=== PATIENT | male | born 1965 | race Caucasian/White ===

== ENCOUNTER 2017-12-28 14:39 | Inpatient (IN) | payer MEDICARE ==
[~2017-12-28] VITALS: Ht 162.6 cm; Wt 121.1 kg
[~2017-12-28 14:39] MED LIST: K DUR10 MEQ PO; KLOR-CON 1010 MEQ PO; LASIX40 MG PO; LEVOTHYROXINE75 MCG PO; METFORMIN HCL500 MG PO; SIMVASTATIN40 MG PO; WARFARIN SODIUM6 MG PO; [UNRECOGNIZED DRUG - CODE] PO
[2017-12-28] MEDS ORDERED: IPRATROPIUM BROMIDE 0.02% 2.5 ML NEB NEB STA (15:16)
[2017-12-28] MEDS ORDERED: ALBUTEROL SULF 0.083% NEB SOLN 3 ML NEB NEB STA (15:16)
[2017-12-28 15:53] LABS: BASOPHILS # (AUTO) 0.1 (0.0-0.1); BASOPHILS % 1.3 % (0.0-1.0); EOSINOPHILS # (AUTO) 0.1 (0.0-0.4); EOSINOPHILS % 1.1 % (0.0-6.0); HEMATOCRIT 46.2 % (38.2-49.6); HEMOGLOBIN 14.7 g/dL (14.0-18.0); LYMPHOCYTES # (AUTO) 0.8 (1.0-3.2); MEAN CORPUSCULAR HEMOGLOBIN 30.4 pg (28-32); MEAN CORPUSCULAR HGB CONC 31.8 g/dL (31-35); MEAN CORPUSCULAR VOLUME 95.7 fL (81-99); MONOCYTES # (AUTO) 0.7 (0.2-0.8); MONOCYTES % 9.3 % (4.4-11.3); NEUTROPHILS # (AUTO) 5.5 (2.1-6.9); NEUTROPHILS % 76.9 % (38.7-80.0); PLATELET COUNT 225 x10e3/uL (140-360); RED BLOOD COUNT 4.83 x10e6/uL (4.3-5.7)
[2017-12-28 16:02] LABS: INR 3.16; PROTHROMBIN TIME 30.5 seconds (11.9-14.5)
[2017-12-28 16:03] LABS: PARTIAL THROMBOPLASTIN TIME 55.8 seconds (23.8-35.5)
[2017-12-28 16:12] LABS: ALANINE AMINOTRANSFERASE 15 IU/L (0-55); ALBUMIN 3.1 g/dL (3.5-5.0); ALBUMIN/GLOBULIN RATIO 0.8 (0.8-2.0); ALKALINE PHOSPHATASE 110 IU/L (40-150); BLOOD UREA NITROGEN 20 mg/dL (7-26); BUN/CREATININE RATIO 22 (6-25); CALCIUM 9.3 mg/dL (8.4-10.2); CARBON DIOXIDE 28 mmol/L (22-29); CHLORIDE 102 mmol/L (98-107); CREATINE KINASE 22 IU/L (30-200); CREATININE, SERUM 0.91 mg/dL (0.72-1.25); EST GLOMERULAR FILTRATION RATE > 60 ML/MIN (60-); GLUCOSE 114 mg/dL (74-118); SODIUM 140 mmol/L (136-145)
--- NOTE | 2017-12-28 16:34 | Diagnostic Imaging Report ---
PROCEDURE: Frontal and lateral views of the chest. COMPARISON: Patients [facility], , CHEST 2 VIEWS, 12/26/2014, 14:02. INDICATIONS: short of breath FINDINGS: Lines/tubes: Unchanged left upper chest multilead cardiac device. Lungs: Lungs are well-inflated. Bilateral interstitial opacities extending from the manda consistent with interstitial pulmonary edema. Patchy opacities in the left lower lung may reflect alveolar edema or atelectasis. Pleura: There is no pleural effusion or pneumothorax. Heart and mediastinum: Marked enlargement of the cardiac silhouette. Central pulmonary venous congestion. Bones: No acute bony abnormality. IMPRESSION: 1. marked enlargement of the cardiac silhouette with central pulmonary venous congestion and bilateral interstitial edema. Patchy opacities in the left lower lung may reflect alveolar edema or atelectasis. Findings likely represent decompensated CHF. Keith Carranza M.D. Dictated by: Keith Carranza M.D. on 12/28/2017 at 16:39 Electronically approved by: Keith Carranza M.D. on 12/28/2017 at 16:39
[2017-12-28] MEDS ORDERED: FUROSEMIDE INJ 10 MG/ML 4 ML VIAL IV ONE (18:00)
[2017-12-28] MEDS ORDERED: ASPIRIN 81 MG CHEW TAB PO ONE (18:30)
[2017-12-28] MEDS ORDERED: SODIUM CHLORIDE FLUSH 10 ML SYR INJ PRN (18:30)
[2017-12-28] MEDS ORDERED: GLIMEPIRIDE2 MG PO (18:34)
[2017-12-28] MEDS ORDERED: ALLOPURINOL100 MG PO (18:34)
[2017-12-28] MEDS ORDERED: WARFARIN SODIUM1 MG PO (18:34)
[2017-12-28] MEDS ORDERED: ERGOCALCIF8000 UNIT/ PO (18:34)
[2017-12-28] MEDS ORDERED: METOPROLOL SUCC25 MG PO (18:34)
[2017-12-28] MEDS ORDERED: LEVOTHYROXINE75 MCG PO (18:34)
[2017-12-28 18:43] LABS: MAGNESIUM 1.8 MG/DL (1.3-2.1); PHOSPHORUS 3.2 MG/DL (2.3-4.7)
[2017-12-28] MEDS: BUMETANIDE INJ 0.25MG/ML 4ML VIAL IV SCH (19:10)
[2017-12-28 20:16] VITALS: BP 116/65
[2017-12-28] MEDS: ALBUTEROL SULF 0.083% NEB SOLN 3 ML NEB NEB SCH ×2 (20:30→23:15)
[2017-12-28 21:07] VITALS: BP 112/53
[2017-12-28 21:23] VITALS: BP 112/53
[2017-12-28 22:20] VITALS: BP 118/77
[2017-12-28 23:57] VITALS: BP 113/64
[2017-12-29] VITALS (10 sets, daily range): BP systolic 98–135; BP diastolic 48–80
[2017-12-29 00:06] LABS: CREATINE KINASE MB 1.9 ng/mL (0-5.0)
[2017-12-29] MEDS: ALBUTEROL SULF 0.083% NEB SOLN 3 ML NEB NEB SCH ×6 (02:52→23:00)
[2017-12-29 05:29] LABS: BASOPHILS # (AUTO) 0.1 (0.0-0.1); BASOPHILS % 0.8 % (0.0-1.0); EOSINOPHILS # (AUTO) 0.1 (0.0-0.4); EOSINOPHILS % 1.1 % (0.0-6.0); HEMATOCRIT 46.2 % (38.2-49.6); HEMOGLOBIN 14.6 g/dL (14.0-18.0); LYMPHOCYTES # (AUTO) 0.7 (1.0-3.2); LYMPHOCYTES % 9.2 % (18.0-39.1); MEAN CORPUSCULAR HEMOGLOBIN 30.5 pg (28-32); MEAN CORPUSCULAR HGB CONC 31.6 g/dL (31-35); MEAN CORPUSCULAR VOLUME 96.5 fL (81-99); MONOCYTES # (AUTO) 0.7 (0.2-0.8); MONOCYTES % 9.9 % (4.4-11.3); NEUTROPHILS # (AUTO) 5.6 (2.1-6.9); NEUTROPHILS % 78.7 % (38.7-80.0); PLATELET COUNT 222 x10e3/uL (140-360); RED BLOOD COUNT 4.79 x10e6/uL (4.3-5.7); RED CELL DISTRIBUTION WIDTH 18.8 % (11.7-14.4)
[2017-12-29 06:00] LABS: ALANINE AMINOTRANSFERASE 16 IU/L (0-55); ALBUMIN/GLOBULIN RATIO 0.8 (0.8-2.0); ALKALINE PHOSPHATASE 106 IU/L (40-150); ANION GAP 13.6 mmol/L (8-16); BLOOD UREA NITROGEN 17 mg/dL (7-26); BUN/CREATININE RATIO 19 (6-25); CALCIUM 9.3 mg/dL (8.4-10.2); CARBON DIOXIDE 34 mmol/L (22-29); CHLORIDE 99 mmol/L (98-107); CREATININE, SERUM 0.89 mg/dL (0.72-1.25); EST GLOMERULAR FILTRATION RATE > 60 ML/MIN (60-); GLUCOSE 114 mg/dL (74-118); POTASSIUM 3.6 mmol/L (3.5-5.1); SODIUM 143 mmol/L (136-145)
[2017-12-29] MEDS: BUMETANIDE INJ 0.25MG/ML 4ML VIAL IV SCH (06:29)
[2017-12-29 06:50] LABS: CREATINE KINASE MB 1.6 ng/mL (0-5.0)
[2017-12-29] MEDS: SPIRONOLACTONE 25 MG TAB PO SCH (08:27)
[2017-12-29] MEDS: POTASSIUM CHLORIDE 20 MEQ TAB CR PO SCH (08:28)
[2017-12-29] MEDS: LISINOPRIL 10 MG TAB PO SCH (09:00)
[2017-12-29 09:43] LABS: INR 2.8; PROTHROMBIN TIME 27.7 seconds (11.9-14.5)
[2017-12-29] MEDS ORDERED: FUROSEMIDE INJ 10 MG/ML 4 ML VIAL IV NR (09:45)
[2017-12-29] MEDS ORDERED: LEVOTHYROXINE SODIUM 75 MCG TAB PO SCH (10:00)
[2017-12-29] MEDS: METOPROLOL SUCCINATE 25 MG TAB XL PO SCH (10:00)
[2017-12-29] MEDS: LEVOTHYROXINE SODIUM 75 MCG TAB PO SCH (10:10)
[2017-12-29] MEDS: GLIMEPIRIDE 2 MG TAB PO SCH (10:10)
--- NOTE | 2017-12-29 10:39 | History and Physical ---
CHIEF COMPLAINT: Shortness of breath. HISTORY OF PRESENT ILLNESS: This is a 52-year-old white man who presents to [facility] emergency room with sudden onset of shortness of breath. This man has a history of Down syndrome, as well as congestive heart failure. In the emergency room, chest x-ray performed and revealed cardiomegaly with central pulmonary venous congestion, as well as bilateral interstitial edema. However, the patient's B-type natriuretic peptide level was normal at a value of 75. The patient's BUN and creatinine was 17 and 0.9 respectively. The patient's potassium was 3.6. The patient's serial cardiac enzymes, however, were negative for cardiac ischemia. In the emergency room, the patient's oxygen saturation was 92% on 2 L of oxygen. Apparently, his oxygen saturation was 78% on room air. REVIEW OF SYSTEMS GENERAL: Weight is increased slightly, but cannot quantity. No fever or chills. HEENT: No headaches. No vision changes. CARDIOVASCULAR: No chest pain, but he has had shortness of breath the past few days. GI: Denies diarrhea or constipation. : No UTI symptoms. NEUROMUSCULAR: No weakness. PAST MEDICAL HISTORY 1. Down syndrome. 2. Chronic systolic/diastolic congestive heart failure. 3. Extreme obesity. 4. Hyperlipidemia. 5. Type 2 diabetes mellitus. 6. Hypertensive heart disease. 7. History of recurrent deep venous thrombosis. 8. History of pulmonary embolism. 9. Hypothyroidism. ALLERGIES 1. CEFDINIR. 2. VANCOMYCIN. FAMILY HISTORY: Noncontributory. SOCIAL HISTORY: The man is single. He lives at home, and he has multiple adult sisters who care for him. SURGICAL HISTORY: Unknown. PHYSICAL EXAMINATION GENERAL: He is awake and alert. Does not appear to be in any respiratory distress. He has obvious Down syndrome with cognitive deficits. He is very pleasant and cooperative with exam. He communicates with the nursing staff adequately. VITALS: Blood pressure is 109/48, pulse 72, respiratory rate 22, oxygen saturation 94% on 4 L oxygen, temperature 97.7. Height is 5 feet 4 inches and weighs 275 pounds. BMI 47. SKIN: Warm and dry. No pallor or diaphoresis appreciated. HEENT: Anicteric sclerae. Moist mucous membranes. NECK: Supple. Difficult to assess for jugular venous distention because of the patient's body habitus. CARDIOVASCULAR: Regular rate and rhythm. LUNGS: Crackles bilaterally. ABDOMEN: Obese and benign. EXTREMITIES: Trace edema in the bilateral lower legs. NEUROLOGIC: Intact. DIAGNOSES 1. Xojsw-ch-nrcwmlh systolic/diastolic congestive heart failure. 2. Down syndrome. 3. Extreme obesity: Body mass index 47. 4. History of lower extremity deep venous thrombosis. 5. History of pulmonary embolism. PLAN 1. Continue warfarin therapy. 2. Follow up prothrombin time and INR level. 3. Order a CT angiogram of the chest to rule out pulmonary thromboembolism. 4. Continue intravenous furosemide. 5. Order 2-D echocardiogram. 6. Consult cardiology. I spent 45 minutes in the care of this intensive care unit patient. Job#: [id number] OMAR
[2017-12-29] MEDS ORDERED: NYSTATIN 15 GM POWDER UD BTL TOP PRN (11:00)
[2017-12-29] MEDS ORDERED: FUROSEMIDE INJ 10 MG/ML 4 ML VIAL IV SCH (14:00)
--- NOTE | 2017-12-29 14:05 | Diagnostic Imaging Report ---
PROCEDURE: CT scan of the chest WITH intravenous contrast, using standard protocol. TECHNIQUE: The chest was scanned utilizing a multidetector helical scanner from the lung apex through the level of the adrenal glands after the IV administration of 100 cc of Isovue 370. Coronal and sagittal multiplanar reformations were obtained. COMPARISON: 02/12/2015 INDICATIONS: DYSPNEA, BLOOD CLOTS FINDINGS: Lines/tubes: There are 2 pacemaker devices, one in the left chest wall, and one in the subcutaneous tissues of the upper abdomen. Multiple leads have their tips in the right atrium, right ventricle, and abutting the left ventricular wall. Pulmonary Arteries: Technically adequate examination with no evidence of pulmonary embolus. The main pulmonary artery is normal in caliber, measuring 2.3 cm Lungs and Airways: Patchy groundglass opacities are seen throughout both lungs with a basilar predominance. There are is interlobular septal thickening in the lung bases. Mild right basilar subsegmental atelectasis. Pleura: Small right pleural effusion. No pneumothorax. Heart and mediastinum: The thyroid gland is normal. There are mildly enlarged mediastinal nodes. For example a subcarinal lymph node (series 2, image 59) measures 1.3 cm. A right paratracheal lymph node (image 38) measures 1.3 cm. The heart is mildly enlarged. There is biventricular enlargement with thickening and trabeculation of the right ventricular wall . Soft tissues: Normal. Abdomen: Limited contrast-enhanced views of the upper abdomen. No specific abnormality is noted.. Bones: Median sternotomy wires. Multilevel degenerative changes of the thoracic spine. IMPRESSION: No evidence of pulmonary embolus. Cardiomegaly with pulmonary edema and small right pleural effusion. Mild mediastinal adenopathy is indeterminate. Dictated by: Bonilla William M.D. on 12/29/2017 at 14:10 Electronically approved by: Bonilla William M.D. on 12/29/2017 at 14:10
[2017-12-29] MEDS: WARFARIN SOD 5 MG TAB PO SCH (17:02)
[2017-12-29] MEDS: METOLAZONE 5 MG TAB PO SCH (17:06)
--- NOTE | 2017-12-29 17:48 | Consultation ---
DATE OF CONSULTATION: December 29, 2017 CARDIOLOGY CONSULTATION REASON FOR CONSULTATION: Hypoxia, acute on chronic CHF exacerbation. CHIEF COMPLAINT: I felt very short of breath and swollen. HISTORY OF PRESENT ILLNESS: Patient is a 52-year-old male with mental retardation, history of DVT on Coumadin, dual chamber pacemaker placed in 2006, history of cardiac surgery 30 years ago, bilateral venous insufficiency, pulmonary hypertension, obstructive sleep apnea on nighttime O2 and CPAP, and chronic diastolic heart failure, who was sent over from the office yesterday to the hospital because he appeared very short of breath, had gained a lot of weight, and he was saturating 75%. Since his admission, he has been diuresed and is net negative over three liters. He says his breathing is better but continues to feel somewhat short of breath. Denies any chest pain. Says that he has gained a lot of weight recently. Denies any palpitations or syncope. REVIEW OF SYSTEMS: Ten point review of systems is as above, otherwise negative. PAST MEDICAL HISTORY: 1. History of DVT on anticoagulation. 2. Down syndrome. 3. Corrective cardiac surgery 30 years ago. 4. Permanent pacemaker initially placed 20 years ago and has had several generator changes since then. 5. Bilateral venous insufficiency. 6. Pulmonary hypertension. 7. Severe AROLDO. 8. Chronic diastolic heart failure. 9. Morbid obesity. FAMILY HISTORY: No family history of early CAD or sudden cardiac . SOCIAL HISTORY: Patient denies smoking, drinking or using illicit drugs. PHYSICAL EXAMINATION: VITAL SIGNS: Temperature 97.5, heart rate 70, respiratory rate 18, blood pressure 102/60, satting 92% on two liters nasal cannula. GENERAL: A well-developed, morbidly obese white male. CARDIOVASCULAR: A very difficult and limited exam due to body habitus. PMI cannot be assessed. Regular S1/S2. No murmur, rubs or gallops. Palpable carotid pulses. Palpable radial pulses. Distal pulses in lower extremities could not be palpated due to 4+ edema and obesity. ABDOMEN: Very obese, soft, nontender. RESPIRATORY: No respiratory distress. Poor air movement, but lungs are clear to auscultation bilaterally. NEURO AND PSYCH: Patient is alert and oriented to place but not person or time. Cooperative affect. LABORATORY DATA: Reviewed. Significant for negative cardiac enzymes, normal renal function, carbon dioxide of 34. BNP was 75. IMAGING: All imaging reviewed. CT of the chest shows no evidence of pulmonary embolus, cardiomegaly or pulmonary edema and small right pleural effusion. Electrocardiogram shows AV paced rhythm. No arrhythmias on telemetry. ASSESSMENT 1. Acute on chronic diastolic heart failure. 2. Pulmonary hypertension. 3. Deep vein thrombosis on anticoagulation. 4. Bilateral venous insufficiency. 5. Dual chamber permanent pacemaker in place. 6. Congenital abnormality status post cardiac surgery 30 years ago. PLAN: Agree with continuing aggressive diuresis given pulmonary edema and CT scan as well as gross volume overload on exam. His BNP is normal. However, BNP can be falsely normal in morbidly obese patients such as this patient. Echocardiogram has been done but pending. In the past, his LV function has been preserved with elevated filling pressures and poor diastolic function. Continue his home anticoagulation for DVT. Thank you for this consult. Will continue to follow. Job#: [id number] MARCELLA
[2017-12-29] MEDS ORDERED: IOPAMIDOL 370 MG/ML 200 ML INFUS..BTL INJ ONE (19:33)
[2017-12-29] MEDS ORDERED: SODIUM CHLORIDE 0.9% 50ML 50 ML ONE (19:33)
[2017-12-29] MEDS: SIMVASTATIN 40 MG TAB PO SCH (21:55)
[2017-12-29] MEDS: METFORMIN HCL 500 MG TAB PO SCH (21:55)
[2017-12-29] MEDS: FUROSEMIDE INJ 10 MG/ML 4 ML VIAL IV SCH (21:55)
[2017-12-30] VITALS (42 sets, daily range): BP systolic 53–130; BP diastolic 22–91
[2017-12-30] MEDS: ALBUTEROL SULF 0.083% NEB SOLN 3 ML NEB NEB SCH ×6 (03:15→23:00)
[2017-12-30 04:43] LABS: BASOPHILS # (AUTO) 0.1 (0.0-0.1); BASOPHILS % 0.6 % (0.0-1.0); EOSINOPHILS # (AUTO) 0.1 (0.0-0.4); EOSINOPHILS % 0.9 % (0.0-6.0); HEMATOCRIT 48.9 % (38.2-49.6); HEMOGLOBIN 15.7 g/dL (14.0-18.0); LYMPHOCYTES # (AUTO) 0.6 (1.0-3.2); LYMPHOCYTES % 6.5 % (18.0-39.1); MEAN CORPUSCULAR HEMOGLOBIN 30.5 pg (28-32); MEAN CORPUSCULAR HGB CONC 32.1 g/dL (31-35); MONOCYTES # (AUTO) 0.7 (0.2-0.8); MONOCYTES % 7.8 % (4.4-11.3); NEUTROPHILS # (AUTO) 7.8 (2.1-6.9); NEUTROPHILS % 83.9 % (38.7-80.0); PLATELET COUNT 243 x10e3/uL (140-360); RED BLOOD COUNT 5.15 x10e6/uL (4.3-5.7); RED CELL DISTRIBUTION WIDTH 19.1 % (11.7-14.4)
[2017-12-30 04:54] LABS: INR 2.58
[2017-12-30 05:04] LABS: ALANINE AMINOTRANSFERASE 16 IU/L (0-55); ALBUMIN 3.3 g/dL (3.5-5.0); ALBUMIN/GLOBULIN RATIO 0.7 (0.8-2.0); ALKALINE PHOSPHATASE 118 IU/L (40-150); ANION GAP 17.4 mmol/L (8-16); BLOOD UREA NITROGEN 15 mg/dL (7-26); BUN/CREATININE RATIO 13 (6-25); CARBON DIOXIDE 36 mmol/L (22-29); CHLORIDE 93 mmol/L (98-107); CREATININE, SERUM 1.13 mg/dL (0.72-1.25); EST GLOMERULAR FILTRATION RATE > 60 ML/MIN (60-); GLUCOSE 161 mg/dL (74-118); POTASSIUM 3.4 mmol/L (3.5-5.1); SODIUM 143 mmol/L (136-145)
[2017-12-30] MEDS: FUROSEMIDE INJ 10 MG/ML 4 ML VIAL IV SCH ×4 (05:42→20:05)
[2017-12-30] MEDS: LEVOTHYROXINE SODIUM 75 MCG TAB PO SCH (05:43)
--- NOTE | 2017-12-30 06:39 | Diagnostic Imaging Report ---
EXAM: CHEST SINGLE (PORTABLE), AP 1 view INDICATION: CHF COMPARISON: AP view of the chest December 28, 2017 FINDINGS: LINES/TUBES: Left approach cardiac device with leads poorly visualized. LUNGS: Bilateral pulmonary edema PLEURA: Indeterminate for small bilateral pleural effusions. HEART AND MEDIASTINUM: Stable marked enlargement of the cardiomediastinal silhouette. Stable median sternotomy wires. BONES AND SOFT TISSUES: No acute findings. IMPRESSION: Findings of fluid overload with cardiomegaly and pulmonary edema. Signed by: Dr. Tamika Sigala M.D. on 12/30/2017 6:35 AM
[2017-12-30] MEDS ORDERED: LEVOTHYROXINE SODIUM 75 MCG TAB PO SCH (07:30)
[2017-12-30] MEDS: METFORMIN HCL 500 MG TAB PO SCH ×2 (08:21→20:12)
[2017-12-30] MEDS: GLIMEPIRIDE 2 MG TAB PO SCH (08:21)
[2017-12-30] MEDS: SPIRONOLACTONE 25 MG TAB PO SCH (08:21)
[2017-12-30] MEDS: LISINOPRIL 10 MG TAB PO SCH (08:22)
[2017-12-30] MEDS: POTASSIUM CHLORIDE 20 MEQ TAB CR PO SCH (08:22)
[2017-12-30] MEDS: METOPROLOL SUCCINATE 25 MG TAB XL PO SCH (08:23)
[2017-12-30] MEDS: ALLOPURINOL 100 MG TAB PO SCH (08:23)
[2017-12-30] MEDS: METOLAZONE 5 MG TAB PO SCH (08:23)
--- NOTE | 2017-12-30 13:07 | Progress Note ---
DATE: December 30, 2017 CARDIOLOGY PROGRESS NOTE SUBJECTIVE: The patient denies chest pain or shortness of breath. OBJECTIVE VITAL SIGNS: Temperature 98.5 degrees, pulse 88, respiratory rate 22, blood pressure 110/62, oxygen saturation 96% on 3 liters nasal cannula. GENERAL: An obese gentleman, awake and alert and in no acute distress. LUNGS: Clear to auscultation bilaterally. No wheezes or crackles. CARDIOVASCULAR: Normal rate, regular rhythm. No murmurs. Normal S1 and S2. ABDOMEN: Soft and nontender. EXTREMITIES: Trace edema with skin changes consistent with chronic venous stasis. CARDIAC MEDICATIONS: 1. Metolazone 5 mg p.o. daily. 2. Metoprolol succinate 25 mg p.o. daily. 3. Potassium 20 mEq p.o. daily. 4. Lisinopril 10 mg p.o. daily. 5. Spironolactone 25 mg p.o. daily. 6. Levothyroxine 75 mcg p.o. daily. 7. Furosemide 80 mg IV q.8 h. 8. Simvastatin 40 mg p.o. q. nightly. 9. Warfarin 7.5 mg p.o. daily. LABORATORY DATA: WBC 9.3, hemoglobin 15.7, hematocrit 48.9, platelets 243,000, sodium 143, potassium 3.4, chloride 93, CO2 of 36, BUN 15, creatinine 1.13. INR 2.58. IMAGING: CT chest with no evidence of pulmonary embolus, cardiomegaly with pulmonary edema and small right pleural effusion. Mild mediastinal adenopathy is indeterminate. Chest x-ray with findings of fluid overload with cardiomegaly and pulmonary edema. TELEMETRY: V-paced rhythm. IMPRESSION 1. Qehhc-gc-ksiopwz diastolic heart failure. 2. Pulmonary hypertension. 3. History of deep venous thrombosis on chronic anticoagulation. 4. Bilateral venous insufficiency, status post dual-chamber permanent pacemaker. 5. History of congenital heart disease, status post cardiac surgery 30 years ago. 6. Down's syndrome. 7. Obesity. 8. Diabetes mellitus. 9. Hypertension. 10. Hyperlipidemia. 11. Hypothyroidism. RECOMMENDATIONS: The patient continues to have volume overload on chest x-ray. Continue current diuretics. Monitor creatinine and replete electrolytes. Continue warfarin for anticoagulation. His physical exam is improving as are his symptoms. Will follow his chest x-ray findings as well as his oxygen saturation to determine when he may be changed to p.o. diuretics and ready for discharge. In the meantime, continue current cardiac medications. Thank you for this consult. We will continue to follow. Job#: [id number] GH
[2017-12-30] MEDS: TRAMADOL HCL 50 MG TAB PO PRN (13:30)
[2017-12-30] MEDS: WARFARIN SOD 5 MG TAB PO SCH (16:53)
[2017-12-30] MEDS ORDERED: SODIUM CHLORIDE 0.9% 250ML 250 ML ONE (19:45)
[2017-12-30] MEDS ORDERED: SODIUM CHLORIDE 0.9% 1000ML 1,000 ML IV PRN (20:00)
[2017-12-30] MEDS: SIMVASTATIN 40 MG TAB PO SCH (20:12)
[2017-12-30] MEDS ORDERED: ALBUMIN 25% 25GM 0.25 GM/ML BTL IV ONE ×2 (22:15→22:30)
[2017-12-30] MEDS ORDERED: ALBUMIN 25% 12.5GM 100 ML IV ONE (22:29)
[2017-12-30 23:26] LABS: CLARITY,URINE CLEAR (CLEAR); COLOR,URINE YELLOW (YELLOW); LEUKOCYTE ESTERASE ,URINE NEGATIVE (NEGATIVE); NITRITE,URINE NEGATIVE (NEGATIVE)
[2017-12-30 23:27] LABS: BILIRUBIN,URINE NEGATIVE (NEGATIVE); KETONES,URINE NEGATIVE (NEGATIVE); PROTEIN,URINE DIPSTICK NEGATIVE (NEGATIVE); URINE UROBILINOGEN 0.2 mg/dL (0.2 - 1)
[2017-12-30 23:29] LABS: EPITHELIAL CELLS,URINE FEW /LPF; WBC,URINE (MAN) 0-5 /HPF (0-5)
[2017-12-31] VITALS (77 sets, daily range): BP systolic 56–134; BP diastolic 35–98
[2017-12-31] MEDS: TRAMADOL HCL 50 MG TAB PO PRN (02:06)
[2017-12-31] MEDS: ALBUTEROL SULF 0.083% NEB SOLN 3 ML NEB NEB SCH ×6 (03:00→22:45)
[2017-12-31] MEDS: FUROSEMIDE INJ 10 MG/ML 4 ML VIAL IV SCH ×2 (04:22→14:00)
[2017-12-31] MEDS ORDERED: ALBUMIN 25% 12.5GM 100 ML IV ONE (04:24)
[2017-12-31] MEDS ORDERED: ALBUMIN 25% 25GM 0.25 GM/ML BTL IV ONE ×2 (04:30→04:45)
[2017-12-31] MEDS: LEVOTHYROXINE SODIUM 75 MCG TAB PO SCH ×2 (05:00→06:00)
[2017-12-31 05:15] LABS: BASOPHILS # (AUTO) 0.1 (0.0-0.1); BASOPHILS % 0.6 % (0.0-1.0); EOSINOPHILS # (AUTO) 0.1 (0.0-0.4); EOSINOPHILS % 1.1 % (0.0-6.0); HEMATOCRIT 49.1 % (38.2-49.6); HEMOGLOBIN 15.7 g/dL (14.0-18.0); LYMPHOCYTES # (AUTO) 0.8 (1.0-3.2); LYMPHOCYTES % 6.8 % (18.0-39.1); MEAN CORPUSCULAR HEMOGLOBIN 30.4 pg (28-32); MEAN CORPUSCULAR VOLUME 95.2 fL (81-99); MONOCYTES # (AUTO) 1.1 (0.2-0.8); MONOCYTES % 9.4 % (4.4-11.3); NEUTROPHILS # (AUTO) 9.1 (2.1-6.9); NEUTROPHILS % 81.6 % (38.7-80.0); PLATELET COUNT 260 x10e3/uL (140-360); RED BLOOD COUNT 5.16 x10e6/uL (4.3-5.7); RED CELL DISTRIBUTION WIDTH 19.4 % (11.7-14.4)
[2017-12-31 05:17] LABS: INR 2.71
[2017-12-31 05:24] LABS: ANION GAP 17.8 mmol/L (8-16); CALCIUM 9.9 mg/dL (8.4-10.2); CREATININE, SERUM 2.1 mg/dL (0.72-1.25); POTASSIUM 3.8 mmol/L (3.5-5.1)
--- NOTE | 2017-12-31 06:33 | Diagnostic Imaging Report ---
EXAM: CHEST SINGLE (PORTABLE), AP 1 view INDICATION: CHF COMPARISON: AP view of the chest December 30, 2017 FINDINGS: LINES/TUBES: Stable position of left approach cardiac device LUNGS: Bilateral pulmonary edema PLEURA: Possible small bilateral pleural effusions HEART AND MEDIASTINUM: Stable marked cardiomediastinal silhouette enlargement BONES AND SOFT TISSUES: No acute findings. IMPRESSION: Stable appearance of the chest Signed by: Dr. Tamika Sigala M.D. on 12/31/2017 6:30 AM
[2017-12-31] MEDS: METFORMIN HCL 500 MG TAB PO SCH (08:05)
[2017-12-31] MEDS: GLIMEPIRIDE 2 MG TAB PO SCH (08:05)
[2017-12-31] MEDS: LISINOPRIL 10 MG TAB PO SCH (08:07)
[2017-12-31] MEDS: SPIRONOLACTONE 25 MG TAB PO SCH (08:07)
[2017-12-31] MEDS: METOPROLOL SUCCINATE 25 MG TAB XL PO SCH (08:07)
[2017-12-31] MEDS: ALLOPURINOL 100 MG TAB PO SCH (08:07)
[2017-12-31] MEDS: METOLAZONE 5 MG TAB PO SCH (09:00)
[2017-12-31] MEDS: POTASSIUM CHLORIDE 20 MEQ TAB CR PO SCH (09:00)
[2017-12-31] MEDS ORDERED: SODIUM CHLORIDE 0.9% 250ML 250 ML IV ONE (15:45)
--- NOTE | 2017-12-31 16:28 | Progress Note ---
DATE: December 31, 2017 SUBJECTIVE: The patient denies chest pain or shortness of breath. He was hypotensive yesterday for which he was given 250 mL normal saline as well as 50 grams of albumin. OBJECTIVE VITAL SIGNS: Temperature 99.1 degrees, pulse 87, respiratory rate 16, blood pressure 96/74, oxygen saturation 94% on 3 liters nasal cannula. GENERAL: An obese gentleman, awake and alert and in no acute distress. LUNGS: Clear to auscultation bilaterally. No wheezes or crackles. CARDIOVASCULAR: Normal rate, regular rhythm. No murmurs. Normal S1 and S2. ABDOMEN: Soft and nontender. EXTREMITIES: Trace edema with skin changes consistent with chronic venous stasis. CARDIAC MEDICATIONS: 1. Metoprolol succinate 25 mg p.o. daily. 2. Levothyroxine 75 mcg p.o. daily. 3. Simvastatin 40 mg p.o. q. nightly. 4. Warfarin 7.5 mg p.o. daily. LABORATORY DATA: WBC 11.19, hemoglobin 15.7, hematocrit 49.1, platelets 260,000, sodium 137, potassium 3.8, chloride 86, CO2 of 35, BUN 23, creatinine 2.1, INR 2.71. IMAGING: Chest x-ray stable appearance of the chest. TELEMETRY: V-paced rhythm with PVCs. IMPRESSION 1. Bvrqd-lm-aqpojtk diastolic heart failure. 2. Pulmonary hypertension. 3. Acute kidney injury. 4. History of deep venous thrombosis on chronic anticoagulation. 5. Bilateral venous insufficiency, status post dual-chamber permanent pacemaker. 6. History of congenital heart disease, status post cardiac surgery 30 years ago. 7. Down's syndrome. 8. Diabetes mellitus. 9. Hypertension. 10. Hyperlipidemia. 11. Hypothyroidism. 12. Obesity. RECOMMENDATIONS: Stop diuretics given acute kidney injury. Monitor urine output and creatinine. If creatinine does not improve with cessation of diuretics, consider nephrology consultation. Continue warfarin for anticoagulation. Hold all antihypertensive therapies given hypotension. Continue current cardiac medications otherwise. Thank you for this consult. We will continue to follow. Job#: [id number] GH
[2017-12-31] MEDS: WARFARIN SOD 5 MG TAB PO SCH (16:55)
[2017-12-31] MEDS: SIMVASTATIN 40 MG TAB PO SCH (20:26)
[2018-01-01] VITALS (54 sets, daily range): BP systolic 72–148; BP diastolic 40–107
[2018-01-01] MEDS: ALBUTEROL SULF 0.083% NEB SOLN 3 ML NEB NEB SCH ×6 (02:15→23:01)
[2018-01-01 05:18] LABS: BASOPHILS # (AUTO) 0.1 (0.0-0.1); BASOPHILS % 0.5 % (0.0-1.0); EOSINOPHILS # (AUTO) 0.1 (0.0-0.4); EOSINOPHILS % 0.7 % (0.0-6.0); HEMATOCRIT 50.8 % (38.2-49.6); HEMOGLOBIN 16.3 g/dL (14.0-18.0); LYMPHOCYTES # (AUTO) 0.7 (1.0-3.2); LYMPHOCYTES % 5.5 % (18.0-39.1); MEAN CORPUSCULAR HGB CONC 32.1 g/dL (31-35); MEAN CORPUSCULAR VOLUME 93.6 fL (81-99); MONOCYTES # (AUTO) 1.1 (0.2-0.8); MONOCYTES % 8.4 % (4.4-11.3); NEUTROPHILS # (AUTO) 11.1 (2.1-6.9); NEUTROPHILS % 84.7 % (38.7-80.0); PLATELET COUNT 269 x10e3/uL (140-360); RED BLOOD COUNT 5.43 x10e6/uL (4.3-5.7); RED CELL DISTRIBUTION WIDTH 19.5 % (11.7-14.4)
[2018-01-01 05:37] LABS: INR 2.93; PROTHROMBIN TIME 28.7 seconds (11.9-14.5)
[2018-01-01 05:47] LABS: ANION GAP 17.9 mmol/L (8-16); CALCIUM 10.2 mg/dL (8.4-10.2); CREATININE, SERUM 1.41 mg/dL (0.72-1.25); POTASSIUM 3.9 mmol/L (3.5-5.1)
--- NOTE | 2018-01-01 06:40 | Diagnostic Imaging Report ---
EXAM: CHEST SINGLE (PORTABLE), AP 1 view INDICATION: Congestive heart failure COMPARISON: AP view of the chest December 31, 2017 FINDINGS: LINES/TUBES: Stable position of left approach cardiac device LUNGS: Pulmonary edema PLEURA: Indeterminate for small bilateral layering pleural effusions HEART AND MEDIASTINUM: Stable enlargement BONES AND SOFT TISSUES: No acute findings. IMPRESSION: No interval change Signed by: Dr. Tamika Sigala M.D. on 01/01/2018 6:37 AM
[2018-01-01] MEDS: METFORMIN HCL 500 MG TAB PO SCH (08:00)
[2018-01-01] MEDS: GLIMEPIRIDE 2 MG TAB PO SCH (08:00)
[2018-01-01] MEDS: METOPROLOL SUCCINATE 25 MG TAB XL PO SCH (09:00)
[2018-01-01] MEDS: ALLOPURINOL 100 MG TAB PO SCH (09:00)
[2018-01-01] MEDS: POTASSIUM CHLORIDE 20 MEQ TAB CR PO SCH (09:00)
[2018-01-01] MEDS: WARFARIN SOD 5 MG TAB PO SCH (17:19)
--- NOTE | 2018-01-01 17:38 | Progress Note ---
DATE: January 01, 2018 CARDIOLOGY PROGRESS NOTE SUBJECTIVE: No major events overnight. Patient subjectively feels a lot better and wants to go home. Denies any chest pain, shortness of breath, or palpitations. OBJECTIVE VITAL SIGNS: Temperature 98.0, heart rate 96, respiratory rate 18, blood pressure 99/67, satting 94% on 3 L nasal cannula. GENERAL: Obese white male, no acute distress. CARDIOVASCULAR: Very difficult exam due to body habitus, cannot palpate PMI. Normal S1 and S2. No murmur, rubs, or gallops. Palpable carotid pulses. Palpable radial pulses. ABDOMEN: Soft, nontender, and nondistended. RESPIRATORY: No respiratory distress. Lungs are clear to auscultation bilaterally. EXTREMITIES: Edema 3+ bilaterally. NEURO AND PSYCH: Alert and oriented to person, place, and time. Normal affect. MEDICATIONS: Reviewed. LABORATORY DATA: Reviewed, notable for increasing white count, now up to 13.1. IMAGING DATA: Reviewed. Chest x-ray shows bilateral opacities in the lung waters, suspected pulmonary edema. TELEMETRY DATA: Reviewed. ASSESSMENT 1. Yynej-bw-oswaujl diastolic heart failure. 2. Pulmonary hypertension. 3. Acute kidney injury. 4. History of deep vein thrombosis, on chronic anticoagulation. 5. Bilateral venous insufficiency. 6. Status post dual-chamber pacemaker placement. 7. History of congenital heart disease, status post cardiac surgery 30 years ago. 8. Down syndrome. 9. Diabetes. 10. Hypertension. 11. Hyperlipidemia. 12. Hypothyroidism. 13. Obesity. RECOMMENDATIONS: We will hold diuretics for now given JD and relative hypotension. It is very difficult to assess volume status in this patient; however, his LVEF is preserved and he has diuresed very well in the past few days. Given increasing white count, consider possible infectious etiology of his chest x-ray findings. Continue warfarin for anticoagulation. Antihypertensive being held given blood pressure being borderline. Thank you, we will continue to follow. Job#: [id number] MAYTE
[2018-01-01] MEDS: SIMVASTATIN 40 MG TAB PO SCH (21:01)
[2018-01-02] MEDS: ALBUTEROL SULF 0.083% NEB SOLN 3 ML NEB NEB SCH ×6 (02:50→23:15)
[2018-01-02 05:48] LABS: BASOPHILS # (AUTO) 0.1 (0.0-0.1); BASOPHILS % 0.7 % (0.0-1.0); EOSINOPHILS # (AUTO) 0.2 (0.0-0.4); EOSINOPHILS % 1.4 % (0.0-6.0); HEMATOCRIT 49.2 % (38.2-49.6); HEMOGLOBIN 16.2 g/dL (14.0-18.0); LYMPHOCYTES # (AUTO) 0.8 (1.0-3.2); LYMPHOCYTES % 7.4 % (18.0-39.1); MEAN CORPUSCULAR HEMOGLOBIN 30.7 pg (28-32); MEAN CORPUSCULAR HGB CONC 32.9 g/dL (31-35); MEAN CORPUSCULAR VOLUME 93.2 fL (81-99); MONOCYTES # (AUTO) 1.1 (0.2-0.8); MONOCYTES % 9.7 % (4.4-11.3); NEUTROPHILS # (AUTO) 8.9 (2.1-6.9); NEUTROPHILS % 80.3 % (38.7-80.0); PLATELET COUNT 237 x10e3/uL (140-360); RED BLOOD COUNT 5.28 x10e6/uL (4.3-5.7); RED CELL DISTRIBUTION WIDTH 18.7 % (11.7-14.4)
[2018-01-02 06:04] LABS: INR 3.14; PROTHROMBIN TIME 30.3 seconds (11.9-14.5)
[2018-01-02 06:14] LABS: ANION GAP 15.2 mmol/L (8-16); BLOOD UREA NITROGEN 25 mg/dL (7-26); BUN/CREATININE RATIO 23 (6-25); CARBON DIOXIDE 31 mmol/L (22-29); CHLORIDE 95 mmol/L (98-107); EST GLOMERULAR FILTRATION RATE > 60 ML/MIN (60-); GLUCOSE 141 mg/dL (74-118); POTASSIUM 4.2 mmol/L (3.5-5.1); SODIUM 137 mmol/L (136-145)
[2018-01-02] MEDS: LEVOTHYROXINE SODIUM 75 MCG TAB PO SCH (06:28)
[2018-01-02 07:45] VITALS: BP 107/67
[2018-01-02] MEDS: METOPROLOL SUCCINATE 25 MG TAB XL PO SCH (08:08)
[2018-01-02] MEDS: GLIMEPIRIDE 2 MG TAB PO SCH (08:08)
[2018-01-02] MEDS: POTASSIUM CHLORIDE 20 MEQ TAB CR PO SCH (08:08)
[2018-01-02] MEDS: ALLOPURINOL 100 MG TAB PO SCH (08:08)
[2018-01-02 08:09] VITALS: BP 107/67
--- NOTE | 2018-01-02 11:20 | Diagnostic Imaging Report ---
PROCEDURE: A single AP view of the chest. COMPARISON: 01/01/2018 and prior INDICATIONS: SHORTNESS OF BREATH FINDINGS: Lines/tubes: Left chest wall pacemaker with leads in unchanged positions. The cardiac device in the abdominal left upper quadrant has its leads in unchanged position. Lungs: Lung volumes are improved since the prior examination. Pulmonary edema has improved slightly. Pleura: There is no pleural effusion or pneumothorax. Heart and mediastinum: Cardiomegaly, unchanged Bones: No acute bony abnormality. Median sternotomy wires appear intact. IMPRESSION: Cardiomegaly is unchanged. Pulmonary edema has improved slightly since 01/01/2018 Dictated by: Bonilla William M.D. on 01/02/2018 at 11:26 Electronically approved by: Bonilla William M.D. on 01/02/2018 at 11:26
--- NOTE | 2018-01-02 12:29 | Progress Note ---
DATE: January 02, 2018 CARDIOLOGY PROGRESS NOTE SUBJECTIVE: The patient denies chest pain or shortness of breath. OBJECTIVE VITAL SIGNS: Temperature 96.8 degrees, pulse 80, respiratory rate 20, blood pressure 107/67, oxygen saturation 92% on 3 L nasal cannula. GENERAL: Obese gentleman in no acute distress, awake and alert. LUNGS: Clear to auscultation bilaterally. No wheezes or crackles. CARDIOVASCULAR: Normal rate, regular rhythm. Normal S1 and S2. No murmur. ABDOMEN: Soft and nontender. EXTREMITIES: Trace edema with skin changes consistent with chronic venous stasis. CARDIAC MEDICATIONS 1. Metoprolol succinate 25 mg p.o. daily. 2. Levothyroxine 75 mcg p.o. daily. 3. Simvastatin 40 mg p.o. nightly. 4. Warfarin 7.5 mg p.o. daily. LABS: WBC 11.1, hemoglobin 16.2, hematocrit 49.2, platelets 237,000. Sodium 137, potassium 4.2, chloride 95, CO2 of 31, BUN 25, creatinine 1.1. CHEST X-RAY: Cardiomegaly is unchanged. Pulmonary edema has improved slightly since 01/01/2018. TELEMETRY: Normal sinus rhythm. IMPRESSION 1. Omkse-ay-heykfnh diastolic heart failure. 2. Pulmonary hypertension. 3. Acute kidney injury, improving. 4. History of deep venous thrombosis on chronic anticoagulation. 5. Bilateral venous insufficiency. 6. Status post dual-chamber pacemaker placement. 7. History of congenital heart disease, status post cardiac surgery 30 years ago. 8. Down's syndrome. 9. Diabetes mellitus. 10. Hypertension. 11. Hyperlipidemia. 12. Hypothyroidism. 13. Obesity. RECOMMENDATIONS: Continue to hold diuretics given JD. Evaluation of volume status is difficult in this patient due to his body habitus. Follow creatinine and chest x-ray findings. Continue warfarin for anticoagulation. Continue to hold antihypertensive therapy due to low blood pressure. Thank you for this consult. We will continue to follow. Job#: [id number]
[2018-01-02 12:31] VITALS: BP 95/68
[2018-01-02] MEDS: TRAMADOL HCL 50 MG TAB PO PRN (13:11)
[2018-01-02 16:00] VITALS: BP 113/57
[2018-01-02 20:00] VITALS: BP 111/53
[2018-01-02] MEDS: FUROSEMIDE INJ 10 MG/ML 4 ML VIAL IV SCH (21:03)
[2018-01-02] MEDS: SIMVASTATIN 40 MG TAB PO SCH (21:03)
[2018-01-03] VITALS (11 sets, daily range): BP systolic 86–151; BP diastolic 49–71
[2018-01-03] MEDS: ALBUTEROL SULF 0.083% NEB SOLN 3 ML NEB NEB SCH ×6 (03:00→22:50)
[2018-01-03 05:00] LABS: BASOPHILS # (AUTO) 0.1 (0.0-0.1); BASOPHILS % 0.9 % (0.0-1.0); EOSINOPHILS # (AUTO) 0.2 (0.0-0.4); EOSINOPHILS % 1.5 % (0.0-6.0); HEMATOCRIT 49.7 % (38.2-49.6); HEMOGLOBIN 16.2 g/dL (14.0-18.0); LYMPHOCYTES # (AUTO) 0.7 (1.0-3.2); LYMPHOCYTES % 6.3 % (18.0-39.1); MEAN CORPUSCULAR HEMOGLOBIN 30.6 pg (28-32); MEAN CORPUSCULAR HGB CONC 32.6 g/dL (31-35); MONOCYTES # (AUTO) 1.1 (0.2-0.8); NEUTROPHILS # (AUTO) 8.3 (2.1-6.9); NEUTROPHILS % 79.7 % (38.7-80.0); PLATELET COUNT 230 x10e3/uL (140-360); RED BLOOD COUNT 5.29 x10e6/uL (4.3-5.7); RED CELL DISTRIBUTION WIDTH 18.7 % (11.7-14.4)
[2018-01-03 05:27] LABS: BLOOD UREA NITROGEN 26 mg/dL (7-26); BUN/CREATININE RATIO 25 (6-25); CALCIUM 9.9 mg/dL (8.4-10.2); CARBON DIOXIDE 30 mmol/L (22-29); CHLORIDE 95 mmol/L (98-107); CREATININE, SERUM 1.05 mg/dL (0.72-1.25); EST GLOMERULAR FILTRATION RATE > 60 ML/MIN (60-); GLUCOSE 147 mg/dL (74-118); SODIUM 137 mmol/L (136-145)
[2018-01-03] MEDS: LEVOTHYROXINE SODIUM 75 MCG TAB PO SCH (07:11)
[2018-01-03] MEDS: METOPROLOL SUCCINATE 25 MG TAB XL PO SCH (08:24)
[2018-01-03] MEDS: POTASSIUM CHLORIDE 20 MEQ TAB CR PO SCH (08:24)
[2018-01-03] MEDS: ALLOPURINOL 100 MG TAB PO SCH (08:24)
[2018-01-03] MEDS: FUROSEMIDE INJ 10 MG/ML 4 ML VIAL IV SCH ×2 (08:24→21:00)
[2018-01-03] MEDS: GLIMEPIRIDE 2 MG TAB PO SCH (08:24)
[2018-01-03] MEDS: CEFTRIAXONE SOD 1 GM VIAL IV SCH ×2 (10:29→21:28)
--- NOTE | 2018-01-03 12:40 | Progress Note ---
DATE: January 03, 2018 CARDIOLOGY PROGRESS NOTE SUBJECTIVE: No major events overnight. Patient feels his breathing is back to baseline and wants to go home. REVIEW OF SYSTEMS: As above, otherwise negative. OBJECTIVE VITAL SIGNS: Temperature 96.8, pulse 80, respiratory rate 20, blood pressure 125/67, oxygen sat 92% on 3 liters nasal cannula. GENERAL: Obese, in no acute distress, awake and alert. LUNGS: Clear to auscultation bilaterally. No wheezes or crackles. CARDIOVASCULAR: Normal rate, regular rhythm, normal S1 and S2, no murmurs. ABDOMEN: Soft, nontender. EXTREMITIES: Trace edema with skin changes consistent with chronic venous stasis. CARDIAC MEDICATIONS: Reviewed. LABORATORY DATA: Reviewed. CHEST X-RAY: Findings reviewed. Pulmonary edema improving slightly. TELEMETRY DATA: Reviewed. Normal sinus rhythm. Occasionally paced. IMPRESSION 1. Ckgdu-hz-amviqpp diastolic heart failure. 2. Pulmonary hypertension. 3. Acute kidney injury, improving. 4. History of deep vein thrombosis, on chronic anticoagulation. 5. Bilateral venous insufficiency. 6. Status post dual chamber pacemaker placement. 7. History of congenital heart disease, status post cardiac surgery 30 years ago. 8. Down syndrome. 9. Diabetes. 10. Hypertension. 11. Hyperlipidemia. 12. Hypothyroidism. 13. Morbid obesity. RECOMMENDATIONS: Agree with resuming diuretics at 40 mg IV b.i.d. now that his blood pressure is improved. Evaluation of volume status is difficult by physical exam. Will continue to follow creatinine and chest x-ray findings. Continue warfarin for anticoagulation. INR goal between 2 and 3. Okay to resume his home metoprolol given his blood pressure has now improved. Antibiotics per primary team. Thank you for this consult. Will continue to follow. Job#: [id number] MARCELLA
[2018-01-03] MEDS: WARFARIN SOD 5 MG TAB PO SCH (17:25)
[2018-01-03] MEDS: SIMVASTATIN 40 MG TAB PO SCH (21:27)
[2018-01-03] MEDS: TRAMADOL HCL 50 MG TAB PO PRN (21:28)
[2018-01-04] VITALS (7 sets, daily range): BP systolic 97–122; BP diastolic 47–64
[2018-01-04] MEDS: ALBUTEROL SULF 0.083% NEB SOLN 3 ML NEB NEB SCH ×5 (02:32→19:45)
[2018-01-04 04:35] LABS: BASOPHILS # (AUTO) 0.1 (0.0-0.1); EOSINOPHILS # (AUTO) 0.2 (0.0-0.4); EOSINOPHILS % 1.7 % (0.0-6.0); HEMOGLOBIN 16.1 g/dL (14.0-18.0); LYMPHOCYTES # (AUTO) 0.9 (1.0-3.2); LYMPHOCYTES % 9.4 % (18.0-39.1); MEAN CORPUSCULAR HEMOGLOBIN 30.2 pg (28-32); MEAN CORPUSCULAR HGB CONC 32.2 g/dL (31-35); MEAN CORPUSCULAR VOLUME 93.8 fL (81-99); MONOCYTES # (AUTO) 1.1 (0.2-0.8); MONOCYTES % 11.2 % (4.4-11.3); NEUTROPHILS # (AUTO) 7.3 (2.1-6.9); NEUTROPHILS % 76.2 % (38.7-80.0); PLATELET COUNT 224 x10e3/uL (140-360); RED BLOOD COUNT 5.33 x10e6/uL (4.3-5.7); RED CELL DISTRIBUTION WIDTH 18.6 % (11.7-14.4)
[2018-01-04 04:51] LABS: INR 2.69; PROTHROMBIN TIME 26.9 seconds (11.9-14.5)
[2018-01-04 05:02] LABS: ALANINE AMINOTRANSFERASE 15 IU/L (0-55); ALBUMIN/GLOBULIN RATIO 0.6 (0.8-2.0); ALKALINE PHOSPHATASE 119 IU/L (40-150); BLOOD UREA NITROGEN 25 mg/dL (7-26); BUN/CREATININE RATIO 27 (6-25); CARBON DIOXIDE 30 mmol/L (22-29); CHLORIDE 97 mmol/L (98-107); CREATININE, SERUM 0.91 mg/dL (0.72-1.25); EST GLOMERULAR FILTRATION RATE > 60 ML/MIN (60-); GLUCOSE 127 mg/dL (74-118); SODIUM 138 mmol/L (136-145)
[2018-01-04] MEDS: LEVOTHYROXINE SODIUM 75 MCG TAB PO SCH (07:18)
[2018-01-04] MEDS: FUROSEMIDE INJ 10 MG/ML 4 ML VIAL IV SCH ×2 (08:18→22:32)
[2018-01-04] MEDS: GLIMEPIRIDE 2 MG TAB PO SCH (08:18)
[2018-01-04] MEDS: POTASSIUM CHLORIDE 20 MEQ TAB CR PO SCH (08:19)
[2018-01-04] MEDS: ALLOPURINOL 100 MG TAB PO SCH (08:19)
[2018-01-04] MEDS: METOPROLOL SUCCINATE 25 MG TAB XL PO SCH (08:19)
[2018-01-04] MEDS: CEFTRIAXONE SOD 1 GM VIAL IV SCH ×2 (10:39→22:32)
[2018-01-04] MEDS: TRAMADOL HCL 50 MG TAB PO PRN ×2 (10:40→22:33)
--- NOTE | 2018-01-04 10:55 | Diagnostic Imaging Report ---
PROCEDURE: A single AP view of the chest. COMPARISON: Chest radiograph 01/02/18. INDICATIONS: CHF FINDINGS: Lines/tubes: Left sided dual chamber pacemaker with leads in unchanged position. Lungs: Low lung volumes. Increasing perihilar and interstitial opacities. Patchy opacity are present in the right upper and bilateral lower lung zones. Pleura: There is no pleural effusion or pneumothorax. Heart and mediastinum: Again noted is enlarged cardiomediastinal silhouette. Bones: No acute bony abnormality. IMPRESSION: Cardiomegaly with increasing pulmonary edema. Patchy opacities in the right upper and bilateral lower lung zones, likely alveolar edema given history of CHF. Dictated by: AMAN COPELAND M.D. on 01/04/2018 at 11:01 Electronically approved by: AMAN COPELAND M.D. on 01/04/2018 at 11:01
[2018-01-04] MEDS: WARFARIN SOD 5 MG TAB PO SCH (17:30)
--- NOTE | 2018-01-04 18:08 | Progress Note ---
DATE: January 04, 2018 CARDIOLOGY PROGRESS NOTE SUBJECTIVE: No major events overnight. Patient says he fell and hurt his right knee, and the knee is hurting him. Otherwise, no chest pain, shortness of breath, palpitations. REVIEW OF SYSTEMS: As above, otherwise negative. OBJECTIVE VITAL SIGNS: Temperature 97.7, pulse 78, respiratory rate 20, blood pressure 118/61, satting 97% on 3 liters. GENERAL: Obese, white man in no acute distress. CARDIOVASCULAR: Exam is very limited due to body habitus. PMI could not be palpated. Distant but normal S1 and S2. No murmur, rubs or gallops. Palpable carotid pulses. Palpable pedal pulses. LUNGS: Clear to auscultation bilaterally. Difficult exam. Poor air movement. ABDOMEN: Obese, soft, nontender. EXTREMITIES: There is 2+ edema. Cover dressing on the right knee and tender to palpation but without any effusion or signs of infection. NEURO AND PSYCH: Alert and oriented to person, place and time. Normal affect. LABORATORY DATA: Reviewed. CARDIOVASCULAR MEDICATIONS: Reviewed. IMAGING DATA: Reviewed. TELEMETRY DATA: Shows sinus rhythm with V-pacing. IMPRESSION AND PLAN 1. Kphqt-sy-dapvwqy diastolic heart failure. 2. Pulmonary hypertension. 3. Acute kidney injury, improving. 4. History of deep vein thrombosis, on chronic anticoagulation. 5. Bilateral venous insufficiency. 6. Status post dual chamber pacemaker placement. 7. History of congenital heart disease, status post cardiac surgery 30 years ago. 8. Down syndrome. 9. Diabetes. 10. Hypertension. 11. Hyperlipidemia. 12. Hypothyroidism. 13. Morbid obesity. 14. Obstructive sleep apnea on home CPAP. RECOMMENDATIONS: Continue his current cardiac medications. Volume status very difficult to examine in this patient. Overall, from a cardiovascular standpoint, the patient has improved significantly as far as his respiratory status goes. He can continue his diuresis as an outpatient on his current medical therapy. His chest x-ray, however, is concerning as it still shows intermittent pulmonary congestion and pulmonary edema despite normal LV function and possibly unable to diurese him any further without causing acute kidney injury. Can attempt to diurese him further by increasing his Lasix from 40 mg IV q.12 h. to 80 mg IV q.12 h. and assessing response. He is also being treated for suspected pneumonia with ceftriaxone. Will defer this to the primary team. If this continues to be an issue, he may require right heart cath to fully assess the function of his RV as well as his wedge pressure to see whether his pulmonary infiltrates are indeed from pulmonary edema or some other etiology. Thank you for this consult. Will continue to follow. Job#: [id number] HERMELINDA
[2018-01-04] MEDS ORDERED: SIMVASTATIN 40 MG TAB PO SCH (21:00)
[2018-01-04] MEDS: SIMVASTATIN 40 MG TAB PO SCH (22:32)
[2018-01-05] VITALS (9 sets, daily range): BP systolic 86–113; BP diastolic 44–58
[2018-01-05] MEDS: ALBUTEROL SULF 0.083% NEB SOLN 3 ML NEB NEB SCH ×6 (03:10→23:05)
[2018-01-05 04:41] LABS: BASOPHILS # (AUTO) 0.1 (0.0-0.1); BASOPHILS % 0.9 % (0.0-1.0); EOSINOPHILS # (AUTO) 0.1 (0.0-0.4); EOSINOPHILS % 1.4 % (0.0-6.0); HEMATOCRIT 48.4 % (38.2-49.6); HEMOGLOBIN 15.6 g/dL (14.0-18.0); LYMPHOCYTES # (AUTO) 0.8 (1.0-3.2); LYMPHOCYTES % 7.6 % (18.0-39.1); MEAN CORPUSCULAR HEMOGLOBIN 30.2 pg (28-32); MEAN CORPUSCULAR HGB CONC 32.2 g/dL (31-35); MEAN CORPUSCULAR VOLUME 93.8 fL (81-99); MONOCYTES # (AUTO) 1.1 (0.2-0.8); MONOCYTES % 10.8 % (4.4-11.3); NEUTROPHILS # (AUTO) 8.2 (2.1-6.9); NEUTROPHILS % 78.7 % (38.7-80.0); PLATELET COUNT 243 x10e3/uL (140-360); RED BLOOD COUNT 5.16 x10e6/uL (4.3-5.7); RED CELL DISTRIBUTION WIDTH 18.5 % (11.7-14.4)
[2018-01-05 05:06] LABS: ANION GAP 14.7 mmol/L (8-16); BLOOD UREA NITROGEN 25 mg/dL (7-26); BUN/CREATININE RATIO 26 (6-25); CALCIUM 9.6 mg/dL (8.4-10.2); CARBON DIOXIDE 30 mmol/L (22-29); CHLORIDE 92 mmol/L (98-107); CREATININE, SERUM 0.96 mg/dL (0.72-1.25); EST GLOMERULAR FILTRATION RATE > 60 ML/MIN (60-); GLUCOSE 133 mg/dL (74-118); POTASSIUM 3.7 mmol/L (3.5-5.1); SODIUM 133 mmol/L (136-145)
[2018-01-05] MEDS: LEVOTHYROXINE SODIUM 75 MCG TAB PO SCH (06:47)
[2018-01-05] MEDS: GLIMEPIRIDE 2 MG TAB PO SCH (10:00)
[2018-01-05] MEDS: METOPROLOL SUCCINATE 25 MG TAB XL PO SCH (10:00)
[2018-01-05] MEDS: ALLOPURINOL 100 MG TAB PO SCH (10:00)
[2018-01-05] MEDS: CEFTRIAXONE SOD 1 GM VIAL IV SCH (10:00)
[2018-01-05] MEDS: POTASSIUM CHLORIDE 20 MEQ TAB CR PO SCH (10:00)
[2018-01-05] MEDS: FUROSEMIDE INJ 10 MG/ML 4 ML VIAL IV SCH (10:00)
[2018-01-05] MEDS ORDERED: CEFEPIME HCL 1 GM VIAL IV SCH ×2 (10:00→10:15)
[2018-01-05 10:32] LABS: INR 3.27; PROTHROMBIN TIME 31.3 seconds (11.9-14.5)
[2018-01-05] MEDS: TRAMADOL HCL 50 MG TAB PO PRN ×2 (11:18→21:02)
--- NOTE | 2018-01-05 14:37 | Progress Note ---
DATE: January 05, 2018 CARDIOLOGY PROGRESS NOTE SUBJECTIVE: No major events overnight. Continues to complain about right knee pain. Says his breathing is a lot better. REVIEW OF SYSTEMS: As above, otherwise negative. OBJECTIVE VITAL SIGNS: Temperature 97.7, pulse 75, respiratory rate 20, blood pressure 103/51, saturations 96% on 3 liters nasal cannula. GENERAL: Obese white male in no acute distress. CARDIOVASCULAR: Exam very limited due to body habitus. PMI could not be palpated. Distant but normal S1, S2. No murmurs, rubs, or gallops. Palpable carotid pulses. Palpable pedal pulses. LUNGS: Clear to auscultation bilaterally. Difficult exam. Poor air movement. ABDOMEN: Obese, soft, nontender. EXTREMITIES: 3+ edema and chronic venous stasis changes bilateral lower extremities. No open ulcers. NEURO AND PSYCH: Alert and oriented to person, place and time. Normal affect. LABORATORY DATA: Reviewed. CARDIOVASCULAR MEDICATIONS: Reviewed. IMAGING DATA: Reviewed. TELEMETRY DATA: Shows sinus rhythm with V-pacing. IMPRESSION AND PLAN 1. Kljcb-ev-vdpwkjz diastolic heart failure. 2. Pulmonary hypertension. 3. Acute kidney injury, improving. 4. History of deep vein thrombosis. 5. Bilateral venous insufficiency. 6. Status post dual-chamber pacemaker placement. 7. History of congenital heart disease status post cardiac surgery 30 years ago. 8. Down syndrome. 9. Diabetes. 10. Hypertension. 11. Hyperlipidemia. 12. Hypothyroidism. 13. Morbid obesity. 14. Obstructive sleep apnea on CPAP. RECOMMENDATIONS: Continue current cardiac regimen. His oxygenation has improved with diuresis however at this point he is very sensitive to volume and his blood pressure tends to drop with attempts at further diuresis. This is likely related to having volume-dependent RV given his history of congenital heart disease status post repair many years ago. Will recommend cutting down his diuretics back to his home dose of oral Lasix at this point as further diuresis will likely result in hypotension. He is okay to be discharged to rehab from a cardiovascular standpoint. Will continue his care as an outpatient. Thank you for this consult. We will continue to follow. Job#: [id number] VLAD
[2018-01-05] MEDS: FUROSEMIDE 40 MG TAB PO SCH (17:22)
[2018-01-05] MEDS: CEFEPIME HCL 1 GM VIAL IV SCH (21:02)
[2018-01-05] MEDS: SIMVASTATIN 40 MG TAB PO SCH (21:02)
[2018-01-06] VITALS (7 sets, daily range): BP systolic 96–134; BP diastolic 54–64
[2018-01-06] MEDS: ALBUTEROL SULF 0.083% NEB SOLN 3 ML NEB NEB SCH ×6 (02:55→22:55)
[2018-01-06 05:47] LABS: BASOPHILS # (AUTO) 0.1 (0.0-0.1); BASOPHILS % 1.2 % (0.0-1.0); EOSINOPHILS # (AUTO) 0.2 (0.0-0.4); EOSINOPHILS % 1.7 % (0.0-6.0); HEMATOCRIT 50.7 % (38.2-49.6); LYMPHOCYTES # (AUTO) 0.7 (1.0-3.2); LYMPHOCYTES % 7.4 % (18.0-39.1); MEAN CORPUSCULAR HEMOGLOBIN 30.2 pg (28-32); MEAN CORPUSCULAR HGB CONC 31.6 g/dL (31-35); MEAN CORPUSCULAR VOLUME 95.7 fL (81-99); MONOCYTES # (AUTO) 0.9 (0.2-0.8); NEUTROPHILS # (AUTO) 7.1 (2.1-6.9); PLATELET COUNT 208 x10e3/uL (140-360); RED CELL DISTRIBUTION WIDTH 18.6 % (11.7-14.4)
[2018-01-06] MEDS: TRAMADOL HCL 50 MG TAB PO PRN (05:47)
[2018-01-06] MEDS: LEVOTHYROXINE SODIUM 75 MCG TAB PO SCH (05:47)
[2018-01-06] MEDS: FUROSEMIDE 40 MG TAB PO SCH ×2 (05:47→18:04)
[2018-01-06 05:59] LABS: INR 3.06; PROTHROMBIN TIME 29.7 seconds (11.9-14.5)
[2018-01-06 06:05] LABS: ANION GAP 14.9 mmol/L (8-16); BLOOD UREA NITROGEN 26 mg/dL (7-26); BUN/CREATININE RATIO 29 (6-25); CALCIUM 9.6 mg/dL (8.4-10.2); CARBON DIOXIDE 28 mmol/L (22-29); CHLORIDE 93 mmol/L (98-107); CREATININE, SERUM 0.91 mg/dL (0.72-1.25); EST GLOMERULAR FILTRATION RATE > 60 ML/MIN (60-); GLUCOSE 143 mg/dL (74-118); POTASSIUM 3.9 mmol/L (3.5-5.1); SODIUM 132 mmol/L (136-145)
[2018-01-06] MEDS: POTASSIUM CHLORIDE 20 MEQ TAB CR PO SCH (10:15)
[2018-01-06] MEDS: METOPROLOL SUCCINATE 25 MG TAB XL PO SCH (10:15)
[2018-01-06] MEDS: GLIMEPIRIDE 2 MG TAB PO SCH (10:15)
[2018-01-06] MEDS: ALLOPURINOL 100 MG TAB PO SCH (10:15)
[2018-01-06] MEDS: CEFEPIME HCL 1 GM VIAL IV SCH ×2 (10:15→21:22)
--- NOTE | 2018-01-06 13:20 | Progress Note ---
DATE: January 06, 2018 INTERNAL MEDICINE PROGRESS NOTE The patient has a history of Down's syndrome. No significant complaint. PHYSICAL EXAMINATION HEART: Shows regular rhythm. Normal S1 and S2 sounds. LUNGS: Clear bilaterally. ABDOMEN: Soft. EXTREMITIES: Show no evidence of cyanosis or trauma. The patient still can ambulate. VITAL SIGNS: Blood pressure 134/59, temperature 99.3, heart rate 69 per minute, respiratory rate 18 per minute, oxygen saturation 96%. On the BMP, sodium 132, potassium 3.9, chloride 103, CO2 28, BUN 26, creatinine 0.91, glucose 143. CBC : White blood count 8.96, hemoglobin 16, hematocrit 50, and platelet count 208,000. PT 29.7, INR 3.06 and PTT 44.3. AST 21, ALT 15, total bilirubin 1.2, alkaline phosphatase 119. FINAL IMPRESSION 1. Fbgbi-zd-nqxrfmb diastolic congestive heart failure. 2. Bilateral pneumonia. 3. Acute renal failure. 4. Deep venous thrombosis on both lower extremities. 5. Diabetes mellitus, type 2. 6. Hypertension. 7. Hyperlipidemia. 8. Acquired hypothyroidism. 9. Obstructive sleep apnea. 10. Pulmonary hypertension. 11. Down syndrome. PLAN OF TREATMENT: Continue with current medication regimen. We are going to put a hold on the Coumadin because of the INR being high. Continue albuterol q.4 h. Continue with potassium chloride 20 mEq daily, Simvastatin 40 mg daily, 100 mg daily, levothyroxine 75 mcg daily, Lasix 40 mg twice a day, glimepiride 1 mg daily, tramadol 50 mg q.6 h. as needed, metoprolol 25 mg daily, and cefepime 1 g IV twice a day. We are going to continue monitoring the PT and INR very closely and the BMP. We are going to hold the Coumadin for now until the INR is less than 3. Job#: [id number] RI
--- NOTE | 2018-01-06 14:12 | Progress Note ---
DATE: January 06, 2018 CARDIOLOGY PROGRESS NOTE SUBJECTIVE: No major events overnight. Complains about right leg discomfort. Wants to change his support stockings to the socks he wears at home. REVIEW OF SYSTEMS: As above, otherwise negative. OBJECTIVE VITAL SIGNS: Temperature 97.1, pulse 74, respiratory rate 20, blood pressure 134/59, and satting 100% on 3 L. GENERAL: Obese white male in no acute distress. CARDIOVASCULAR: Exam limited due to body habitus. PMI could not palpated. Distant but normal S1 and S2. No murmurs, rubs or gallops. Palpable carotid pulses. Palpable pedal pulses. LUNGS: Clear to auscultation bilaterally. exam. Poor air movement. ABDOMEN: Obese, soft and nontender. EXTREMITIES: Three plus edema. Chronic venous stasis changes of bilateral lower extremities. No open ulcers. NEURO/PSYCH: Alert and oriented to person, place and time. Normal affect. LABORATORY DATA: Reviewed. CARDIOVASCULAR MEDICATIONS: Reviewed. IMAGING DATA: Reviewed. Telemetry data shows normal sinus rhythm with occasional ventricular pacing. IMPRESSION AND PLAN 1. Lpxfw-iv-cjqacrf diastolic heart failure. 2. Pulmonary hypertension. 3. Acute kidney injury, improved. 4. History of deep venous thrombosis. 5. Bilateral venous insufficiency. 6. Status post dual chamber pacemaker placement. 7. History of congenital heart disease: Status post cardiac surgery 30 years ago. 8. Down syndrome. 9. Diabetes. 10. Hypertension. 11. Hyperlipidemia. 12. Hypothyroidism. 13. Morbid obesity. 14. Obstructive sleep apnea, on CPAP. RECOMMENDATIONS: Continue current cardiac regimen. His oxygenation has improved tremendously since his admission. His volume status is very difficult to assess, however. Appears euvolemic from clinical standpoint. The patient is being considered for transfer to [place]. From a cardiovascular standpoint, he is ready. If volume management remains an issue long-term with him, will consider right heart cath as an outpatient. Thank you for this consult. Will continue to follow. Job#: [id number] OMAR
[2018-01-06] MEDS ORDERED: WARFARIN SOD 5 MG TAB PO SCH (17:00)
[2018-01-06] MEDS: SIMVASTATIN 40 MG TAB PO SCH (21:22)
[2018-01-07] VITALS: BP 110/55
[2018-01-07] MEDS: ALBUTEROL SULF 0.083% NEB SOLN 3 ML NEB NEB SCH ×6 (03:25→23:20)
[2018-01-07 04:00] VITALS: BP 105/64
[2018-01-07] MEDS: FUROSEMIDE 40 MG TAB PO SCH ×2 (06:00→17:55)
[2018-01-07] MEDS: LEVOTHYROXINE SODIUM 75 MCG TAB PO SCH (06:14)
[2018-01-07] MEDS: GLIMEPIRIDE 2 MG TAB PO SCH (08:00)
[2018-01-07 08:36] LABS: INR 2.22; PROTHROMBIN TIME 23.1 seconds (11.9-14.5)
[2018-01-07] MEDS: CEFEPIME HCL 1 GM VIAL IV SCH ×2 (09:00→21:25)
[2018-01-07] MEDS: ALLOPURINOL 100 MG TAB PO SCH (09:00)
[2018-01-07] MEDS: POTASSIUM CHLORIDE 20 MEQ TAB CR PO SCH (09:00)
[2018-01-07] MEDS: METOPROLOL SUCCINATE 25 MG TAB XL PO SCH (09:00)
[2018-01-07 10:33] VITALS: BP 139/54
[2018-01-07 10:42] VITALS: BP 139/54
--- NOTE | 2018-01-07 11:55 | Progress Note ---
DATE: January 07, 2018 CARDIOLOGY PROGRESS NOTE SUBJECTIVE: No major events overnight. Awaiting transfer to [place]. REVIEW OF SYSTEMS: Complains of right lower extremity and knee pain that has improved over the last several days, otherwise no complaints. OBJECTIVE VITAL SIGNS: Temperature 98.3, pulse 74, respiratory rate 18, blood pressure 139/54, satting 96% on nasal cannula 3 liters. GENERAL: Obese white male in no acute distress. CARDIOVASCULAR: Exam limited due to body habitus. PMI could not be palpated. Distant but normal S1 and S2. No murmur, rubs or gallops. Palpable carotid pulses. Palpable pedal pulses. LUNGS: Clear to auscultation bilaterally. Poor air movement. ABDOMEN: Obese, soft, nontender. EXTREMITIES: 3+ pitting edema, right worse than left. Chronic venous stasis changes bilateral lower extremities. No open ulcers. NEURO AND PSYCH: Alert and oriented to person, place and time. Normal affect. LABORATORY DATA: Reviewed. CARDIOVASCULAR MEDICATIONS: Reviewed. IMAGING DATA: Reviewed. TELEMETRY DATA: Reviewed. Shows normal sinus rhythm with occasional ventricular pacing. IMPRESSION 1. Wzsdw-pg-gwjzqfy diastolic heart failure. 2. Pulmonary hypertension. 3. Acute kidney injury, improved. 4. History of deep vein thrombosis. 5. History of obstructive sleep apnea on continuous positive airway pressure and home oxygen. 6. Bilateral lower extremity venous insufficiency with chronic venous stasis changes. 7. Status post dual chamber pacemaker placement. 8. History of congenital heart disease, status post cardiac surgery 30 years ago. 9. Down syndrome. 10. Diabetes. 11. Hypertension. 12. Hyperlipidemia. 13. Hypothyroidism. 14. Morbid obesity. RECOMMENDATIONS: Continue current cardiovascular medications. Clinically appears euvolemic. However, volume status is very difficult to assess in this patient. Continue Lasix 40 mg p.o. b.i.d. for now for lower extremity edema. Patient okay to be transferred to [place] from a cardiovascular standpoint. Will continue to follow. Thank you for this consult. Job#: [id number] EV
--- NOTE | 2018-01-07 14:11 | Progress Note ---
DATE: January 07, 2018 INTERNAL MEDICINE PROGRESS NOTE SUBJECTIVE: Patient is doing well. No significant complaints. PHYSICAL EXAM VITAL SIGNS: Blood pressure 139/54, temperature 98.3, heart rate 74 per minute, respiratory rate 18 per minute, oxygen saturation 96%. HEART: Showed regular rhythm. Normal S1 and S2 sounds. LUNGS: Clear bilaterally. ABDOMEN: Soft. EXTREMITIES: Show some evidence of skin rash, maculopapular scaly rash secondary to psoriasis. LABORATORY DATA: On the BMP, sodium 132, potassium 3.9, chloride 93, CO2 of 28, BUN 26, creatinine 0.91, glucose 143. On the CBC, white blood count 8.96, hemoglobin 16.0, hematocrit 15.7, platelet count 209,000. PT 23.1, INR 2.22, PTT 44.3. AST 21, ALT 15, total bilirubin 1.2, alkaline phosphatase was 19. FINAL IMPRESSION 1. Gmius-eu-magucdq diastolic congestive heart failure. 2. Pulmonary hypertension. 3. Pneumonia. 4. Acute renal failure. 5. History of deep venous thrombosis on chronic anticoagulation. 6. History of bilateral venous insufficiency. 7. Status post dual-chamber pacemaker placement. 8. History of congenital heart disease, status post cardiac surgery 30 years ago. 9. Down syndrome. 10. Uncontrolled diabetes mellitus type 2. 11. Hypertension. 1. Hyperlipidemia. 2. Acquired hypothyroidism. 3. Morbid obesity. 4. Obstructive sleep apnea. 5. Bilateral pneumonia. PLAN OF TREATMENT: We are going to resume the Coumadin at the prior dosage. INR is 2.22 right now, down from 3.0. Continue albuterol q.4 hour. Continue with potassium 20 mEq daily, levothyroxine 75 mcg daily, Coumadin 5 mg daily, allopurinol 100 mg daily, cefepime 1 gram IV twice a day. I am going to increase the glimepiride to 2 mg daily. Continue metoprolol 25 mg daily, furosemide 40 mg twice a day, simvastatin 40 mg daily and tramadol 50 mg q.6 hours as needed. He is going to be transferred to [facility] when accepted. Job#: [id number] POONAM
[2018-01-07 16:48] VITALS: BP 107/46
[2018-01-07] MEDS ORDERED: GLIMEPIRIDE 2 MG TAB PO SCH (17:00)
[2018-01-07] MEDS: TRAMADOL HCL 50 MG TAB PO PRN (18:21)
[2018-01-07 20:00] VITALS: BP 98/47
[2018-01-07] MEDS: SIMVASTATIN 40 MG TAB PO SCH (21:25)
[2018-01-08] VITALS: BP 110/64
[2018-01-08] MEDS: ALBUTEROL SULF 0.083% NEB SOLN 3 ML NEB NEB SCH ×4 (02:45→15:00)
[2018-01-08 04:00] VITALS: BP 104/51
[2018-01-08 04:30] LABS: BASOPHILS # (AUTO) 0.1 (0.0-0.1); BASOPHILS % 0.9 % (0.0-1.0); EOSINOPHILS # (AUTO) 0.1 (0.0-0.4); EOSINOPHILS % 1.1 % (0.0-6.0); HEMOGLOBIN 14.7 g/dL (14.0-18.0); LYMPHOCYTES # (AUTO) 0.6 (1.0-3.2); LYMPHOCYTES % 7.1 % (18.0-39.1); MEAN CORPUSCULAR HEMOGLOBIN 30.5 pg (28-32); MEAN CORPUSCULAR VOLUME 95.4 fL (81-99); MONOCYTES # (AUTO) 1.2 (0.2-0.8); MONOCYTES % 13.5 % (4.4-11.3); NEUTROPHILS # (AUTO) 6.8 (2.1-6.9); NEUTROPHILS % 76.8 % (38.7-80.0); PLATELET COUNT 262 x10e3/uL (140-360); RED BLOOD COUNT 4.82 x10e6/uL (4.3-5.7); RED CELL DISTRIBUTION WIDTH 18.2 % (11.7-14.4)
[2018-01-08 04:54] LABS: ALANINE AMINOTRANSFERASE 20 IU/L (0-55); ALBUMIN 2.4 g/dL (3.5-5.0); ALBUMIN/GLOBULIN RATIO 0.5 (0.8-2.0); ALKALINE PHOSPHATASE 136 IU/L (40-150); ANION GAP 13.9 mmol/L (8-16); BLOOD UREA NITROGEN 22 mg/dL (7-26); BUN/CREATININE RATIO 24 (6-25); CALCIUM 9.7 mg/dL (8.4-10.2); CARBON DIOXIDE 32 mmol/L (22-29); CHLORIDE 93 mmol/L (98-107); EST GLOMERULAR FILTRATION RATE > 60 ML/MIN (60-); GLUCOSE 164 mg/dL (74-118); POTASSIUM 3.9 mmol/L (3.5-5.1); SODIUM 135 mmol/L (136-145)
--- NOTE | 2018-01-08 06:44 | Diagnostic Imaging Report ---
CHEST SINGLE (PORTABLE), 01/08/2018 5:00 AM Technique: CHEST SINGLE (PORTABLE) Comparison: 01/04/2018 Clinical history: CHF and possible pneumonia Findings: See Impression Impression: Limited by portable technique and overlying soft tissue. 1. Lines/Tubes: Stable left chest wall pacer. 2. Stable enlarged cardiomediastinal silhouette. 3. Persistent diffuse opacities, likely an element of edema. 4. No large effusion. Left costophrenic angle excluded. Signed by: Dr Helen Poe MD on 01/08/2018 6:41 AM
[2018-01-08] MEDS: LEVOTHYROXINE SODIUM 75 MCG TAB PO SCH (06:46)
[2018-01-08] MEDS: FUROSEMIDE 40 MG TAB PO SCH (06:46)
[2018-01-08] MEDS ORDERED: GLIMEPIRIDE 2 MG TAB PO SCH (08:00)
[2018-01-08] MEDS: POTASSIUM CHLORIDE 20 MEQ TAB CR PO SCH (08:16)
[2018-01-08] MEDS: CEFEPIME HCL 1 GM VIAL IV SCH (08:16)
[2018-01-08] MEDS: METOPROLOL SUCCINATE 25 MG TAB XL PO SCH (08:18)
[2018-01-08] MEDS: ALLOPURINOL 100 MG TAB PO SCH (08:18)
[2018-01-08 08:30] VITALS: BP 117/58
[2018-01-08 09:00] VITALS: BP 117/58
[2018-01-08] MEDS: ACETAMINOPHEN 325 MG TAB PO PRN ×2 (09:16→13:12)
[2018-01-08 12:00] VITALS: BP 99/63
--- NOTE | 2018-01-08 12:33 | Progress Note ---
DATE: January 08, 2018 CARDIOLOGY PROGRESS NOTE SUBJECTIVE: No major events overnight. Feels well overall. No major complaints. REVIEW OF SYSTEMS: Complains about some mild right lower extremity discomfort that has been improving and otherwise says his shortness of breath is back to his baseline. No chest pain or orthopnea or PND. OBJECTIVE VITAL SIGNS: Temperature 98.3, pulse 74, respiratory rate 18, blood pressure 139/54, satting 96% on 3 liters nasal cannula. GENERAL: Obese white man in no acute distress. CARDIOVASCULAR: Limited exam due to body habitus. PMI could not be palpated. Distant but normal S1 and S2. No murmurs, rubs or gallops. Palpable carotid pulses. Palpable radial pulses. RESPIRATORY: Clear to auscultation bilaterally. Poor air movement. ABDOMEN: Obese, soft, nontender. EXTREMITIES: 3+ pitting edema, right worse than left. Chronic venous stasis changes in bilateral lower extremities. No open ulcers. NEURO AND PSYCH: Alert and oriented to person, place and time. Normal affect. LABORATORY DATA: Reviewed. CARDIOVASCULAR MEDICATIONS: Reviewed. IMAGING DATA: Reviewed. TELEMETRY DATA: Reviewed. Showed normal sinus rhythm with occasional ventricular pacing. IMPRESSION 1. Lskzi-vz-oatkmmt diastolic heart failure. 2. Pulmonary hypertension. 3. History of deep vein thrombosis, on chronic anticoagulation. 4. History of obstructive sleep apnea, on continuous positive airway pressure and home oxygen. 5. Bilateral lower extremity venous insufficiency. 6. Status post dual chamber pacemaker placement. 7. History of congenital heart disease status post cardiac surgery 30 years ago. 8. Down syndrome. 9. Diabetes. 10. Hypertension. 11. Hyperlipidemia. 12. Hypothyroidism. 13. Morbid obesity. RECOMMENDATIONS: Continue current cardiovascular medications. Clinically stable. Okay to be transferred to [place] from a cardiovascular standpoint. Will continue to follow. Thank you for this consult. Job#: [id number] EV
[2018-01-08 16:23] VITALS: BP 103/51
[2018-01-08] MEDS: TRAMADOL HCL 50 MG TAB PO PRN (16:54)
[2018-01-08] MEDS ORDERED: WARFARIN SOD 5 MG TAB PO SCH (17:00)
--- NOTE | 2018-01-09 08:59 | Discharge Summary ---
ADMIT DIAGNOSES 1. Vqdxu-vt-fzumbjc systolic/diastolic congestive heart failure. 2. Down syndrome. 3. Extreme obesity. Body mass index of 47. 4. History of lower extremity deep venous thrombosis. 5. History of pulmonary embolism. DISCHARGE DIAGNOSES 1. Ofpkp-hw-lokbmam diastolic congestive heart failure, resolving. 2. Bilateral pneumonia, resolving. 3. Down syndrome. 4. Extreme obesity. Body mass index 45. 5. History of lower extremity deep venous thrombosis. 6. History of pulmonary embolism. HOSPITAL COURSE: This is a 52-year-old white man who was initially admitted to [facility] with the diagnosis of fbctm-vm-afstkpi systolic/diastolic congestive heart failure. During this hospitalization, the patient underwent a 2-D echocardiogram, which revealed a reserved left ventricular ejection fraction of 60% to 65%, but did reveal findings consistent with diastolic dysfunction. The patient improved clinically in regards to his congestive heart failure with intravenous furosemide. The patient was also diagnosed with bilateral pneumonia during this hospitalization and was started on intravenous antibiotics. The decision was made to transfer the patient to a long-term acute care facility, but due to insurance reasons this referral was denied. Thus, the patient's furosemide was transitioned from intravenous to oral. The patient was thus transferred to a local senior care facility, namely [facility]. The patient's condition on transfer was stable with an overall fair prognosis. DISCHARGE MEDICATIONS 1. Cefuroxime 500 mg b.i.d. for 5 days. 2. Tramadol 50 mg q.6 h. p.r.n. pain. 3. Albuterol nebulized treatments every 4 hours as needed for shortness of breath or wheezing. 4. Allopurinol 100 mg daily. 5. Glimepiride 10 mg daily. 6. Potassium chloride 20 mEq daily. 7. Furosemide 40 mg b.i.d. 8. Levothyroxine 75 mcg daily. 9. Simvastatin 40 mg at bedtime. 10. Metoprolol succinate 25 mg daily. 11. Warfarin 5 mg daily. FOLLOWUP INSTRUCTIONS: As perviously stated, the patient was transferred to a local senior care facility, namely the [facility] where he will be under the care of Dr. Chad Robles. ALAN OSUNA MD Job#: [id number] RI cc:EDER MELVIN MD
[2018-01-09] MEDS ORDERED: CEFUROXIME AXETIL 250 MG TAB PO SCH (09:00)
== END 2018-01-08 17:07 | DRG 291 ==
LOC: ER 14:39 → ERHOLD 18:28 → ICU 20:38 → IMCU 01-01 21:20 → MED/SURG 01-02 13:27
PROVIDERS: ADMIT Internal Medicine; ATTEND Internal Medicine
DX: I11.0 Hypertensive heart disease with heart failure (principal); J18.9 Pneumonia, unspecified organism; Z68.42 Body mass index [BMI] 45.0-49.9, adult; I50.33 Acute on chronic diastolic (congestive) heart failure; E66.01 Morbid (severe) obesity due to excess calories; Z86.718 Personal history of other venous thrombosis and embolism; Z79.01 Long term (current) use of anticoagulants; Z86.711 Personal history of pulmonary embolism; Q90.9 Down syndrome, unspecified; I50.43 Acute on chronic combined systolic (congestive) and diastolic (congestive) heart failure; I27.20 Pulmonary hypertension, unspecified; I87.2 Venous insufficiency (chronic) (peripheral); E11.9 Type 2 diabetes mellitus without complications; Q24.9 Congenital malformation of heart, unspecified; E03.9 Hypothyroidism, unspecified; E78.5 Hyperlipidemia, unspecified; Z79.899 Other long term (current) drug therapy; G47.33 Obstructive sleep apnea (adult) (pediatric)
CPT/HCPCS: 36415; 71045; 71046; 71260; 80048; 80053; 81001; 82550; 82553; 82948; 83735; 83880; 84100; 84484; 85025; 85610; 85730; 93005; 93306; 93971; 94640; 94660; 96365; 97139; 99285; J0692; J0696; J1940; J7050; P9047; Q9967

== ENCOUNTER 2018-08-03 15:52 | Inpatient (IN) | payer MEDICARE ==
[~2018-08-03] VITALS: Ht 162.6 cm; Wt 122.7 kg
[~2018-08-03 15:52] MED LIST changes: +ALLOPURINOL100 MG PO; +ERGOCALCIF8000 UNIT/ PO; +GLIMEPIRIDE2 MG PO; +METOPROLOL SUCC25 MG PO; +WARFARIN SODIUM1 MG PO
--- OUTSIDE RECORDS SUMMARY | 2018-08-03 15:55 | XMS REPORT | Continuity of Care Document ---
Author Author [facility] Interface Address Unknown Phone Unavailable Problems Problem Status Onset Date Classification Date Reported Comments Source DVT Active 02/12/2015 Problem 01/08/2018 [facility] Bronchospasm Active 07/29/2014 Problem 01/08/2018 [facility] Down's syndrome Active 07/29/2014 Problem 01/08/2018 [facility] Pneumonia Active 07/29/2014 Problem 01/08/2018 [facility] CHF exacerbation Active Problem 01/08/2018 [facility] Pulmonary edema cardiac cause Active Problem 01/08/2018 [facility] Medications Medication Details Route Status Patient Instructions Ordering Provider Order Date Source Warfarin Sodium 6 Mg Tablet, 1 Tab Oral Daily Active 01/08/2018 [facility] Levothyroxine Sodium 75 Mcg Tablet, 1 Tab Oral Rt Daily Active 02/13/2015 [facility] Simvastatin 40 Mg Tablet, 40 Mg Oral Daily for Cholesterol Active 02/13/2015 [facility] Potassium Chloride (K Dur*) 10 Meq Tabcr, 10 Meq Oral Daily At 1700 Active Robles 08/04/2014 [facility] Allopurinol 100 Mg Tablet Daily Active [facility] Ergocalciferol (Vitamin D2) (Ergocalciferol) 8,000 Unit/1 Ml Drops Once Active [facility] Furosemide (Lasix) 40 Mg Tablet Daily Active [facility] Glimepiride 2 Mg Tablet Daily Active [facility] Levothyroxine Sodium 75 Mcg Tablet Daily Active [facility] Metformin Hcl 500 Mg Tablet Every Morning Active [facility] Metformin Hcl 500 Mg Tablet Bedtime Active [facility] Metoprolol Succinate 25 Mg Tab.er.24h Daily Active [facility] Potassium Chloride (Klor-Con 10) 10 Meq Tablet.er Twice A Day Active [facility] Simvastatin 40 Mg Tablet Bedtime Active [facility] Warfarin Sodium 1 Mg Tablet Daily Active [facility] Allergies, Adverse Reactions, Alerts Substance Category Reaction Severity Reaction type Status Date Reported Comments Source Vancomycin Unknown Allergy to Substance Active 03/28/2013 [facility] Cefdinir ITCHING Mild Allergy to Substance Active 12/28/2017 [facility] Immunizations Immunization Date Given Site Status Last Updated Comments Source Results Order Name Results Value Reference Range Date Interpretation Comments Source Capillary blood glucose measurement by glucometer (mass/volume) Capillary blood glucose measurement by glucometer (mass/volume) 198 70 - 120 01/08/2018 [facility] Automated blood basophil count (count/volume) Automated blood basophil count (count/volume) 0.1 0.0 - 0.1 01/08/2018 [facility] Automated blood basophil count as percentage of total leukocytes Automated blood basophil count as percentage of total leukocytes 0.9 0.0 - 1.0 01/08/2018 [facility] Automated blood eosinophil count Automated blood eosinophil count 0.1 0.0 - 0.4 01/08/2018 [facility] Automated blood eosinophil count as percentage of total leukocytes Automated blood eosinophil count as percentage of total leukocytes 1.1 0.0 - 6.0 01/08/2018 [facility] Automated blood hematocrit (volume fraction) Automated blood hematocrit (volume fraction) 46.0 38.2 - 49.6 01/08/2018 [facility] Automated blood lymphocyte count as percentage ot total leukocytes Automated blood lymphocyte count as percentage ot total leukocytes 7.1 18.0 - 39.1 01/08/2018 [facility] Automated blood monocyte count as percentage of total leukocytes Automated blood monocyte count as percentage of total leukocytes 13.5 4.4 - 11.3 01/08/2018 [facility] Automated blood neutrophil count Automated blood neutrophil count 6.8 2.1 - 6.9 01/08/2018 [facility] Automated blood platelet count (count/volume) Automated blood platelet count (count/volume) 262 140 - 360 01/08/2018 [facility] Automated blood segmented neutrophil count as percentage of total leukocytes Automated blood segmented neutrophil count as percentage of total leukocytes 76.8 38.7 - 80.0 01/08/2018 [facility] Automated erythrocyte mean corpuscular hemoglobin (mass per erythrocyte) Automated erythrocyte mean corpuscular hemoglobin (mass per erythrocyte) 30.5 28 - 32 01/08/2018 [facility] Automated erythrocyte mean corpuscular hemoglobin concentration measurement (mass/volume) Automated erythrocyte mean corpuscular hemoglobin concentration measurement (mass/volume) 32.0 31 - 35 01/08/2018 [facility] Automated erythrocyte mean corpuscular volume Automated erythrocyte mean corpuscular volume 95.4 81 - 99 01/08/2018 [facility] Blood erythrocytes automated count (number/volume) Blood erythrocytes automated count (number/volume) 4.82 4.3 - 5.7 01/08/2018 [facility] Blood hemoglobin measurement (moles/volume) Blood hemoglobin measurement (moles/volume) 14.7 14.0 - 18.0 01/08/2018 [facility] Blood leukocytes automated count (number/volume) Blood leukocytes automated count (number/volume) 8.86 4.8 - 10.8 01/08/2018 [facility] Blood lymphocytes count (number/volume) Blood lymphocytes count (number/volume) 0.6 1.0 - 3.2 01/08/2018 [facility] Blood monocytes automated count (number/volume) Blood monocytes automated count (number/volume) 1.2 0.2 - 0.8 01/08/2018 [facility] Red Cell Distribution Width 18.2 11.7 - 14.4 01/08/2018 [facility] IM GRANULOCYTES % 0.6 0.0 - 1.0 01/08/2018 [facility] Absolute Immature Granulocyte (auto 0.05 0 - 0.1 01/08/2018 [facility] B-Type Natriuretic Peptide 49.3 0 - 100 01/08/2018 [facility] Estimated glomerular filtration rate (GFR) determination Estimated glomerular filtration rate (GFR) determination null 60 01/08/2018 [facility] Glucose measurement Glucose measurement 164 74 - 118 01/08/2018 [facility] Plasma globulin measurement (mass/volume) Plasma globulin measurement (mass/volume) 4.8 2.3 - 3.5 01/08/2018 [facility] Serum or plasma alanine aminotransferase measurement (enzymatic activity/volume) Serum or plasma alanine aminotransferase measurement (enzymatic activity/volume) 20 0 - 55 01/08/2018 [facility] Serum or plasma albumin measurement (mass/volume) Serum or plasma albumin measurement (mass/volume) 2.4 3.5 - 5.0 01/08/2018 [facility] Serum or plasma albumin/globulin mass ratio Serum or plasma albumin/globulin mass ratio 0.5 0.8 - 2.0 01/08/2018 [facility] Serum or plasma alkaline phosphatase measurement (enzymatic activity/volume) Serum or plasma alkaline phosphatase measurement (enzymatic activity/volume) 136 40 - 150 01/08/2018 [facility] Serum or plasma anion gap Serum or plasma anion gap 13.9 8 - 16 01/08/2018 [facility] Serum or plasma calcium measurement (mass/volume) Serum or plasma calcium measurement (mass/volume) 9.7 8.4 - 10.2 01/08/2018 [facility] Serum or plasma carbon dioxide, total measurement (moles/volume) Serum or plasma carbon dioxide, total measurement (moles/volume) 32 22 - 29 01/08/2018 [facility] Serum or plasma chloride measurement (moles/volume) Serum or plasma chloride measurement (moles/volume) 93 98 - 107 01/08/2018 [facility] Serum or plasma creatinine measurement (mass/volume) Serum or plasma creatinine measurement (mass/volume) 0.90 0.72 - 1.25 01/08/2018 [facility] Serum or plasma potassium measurement (moles/volume) Serum or plasma potassium measurement (moles/volume) 3.9 3.5 - 5.1 01/08/2018 [facility] Serum or plasma protein measurement (mass/volume) Serum or plasma protein measurement (mass/volume) 7.2 6.5 - 8.1 01/08/2018 [facility] Serum or plasma sodium measurement (moles/volume) Serum or plasma sodium measurement (moles/volume) 135 136 - 145 01/08/2018 [facility] Serum or plasma total bilirubin measurement (mass/volume) Serum or plasma total bilirubin measurement (mass/volume) 1.8 0.2 - 1.2 01/08/2018 [facility] Serum or plasma urea nitrogen measurement (mass/volume) Serum or plasma urea nitrogen measurement (mass/volume) 22 7 - 26 01/08/2018 [facility] Serum or plasma urea nitrogen/creatinine mass ratio Serum or plasma urea nitrogen/creatinine mass ratio 24 6 - 25 01/08/2018 [facility] Aspartate Amino Transf (AST/SGOT) 26 5 - 34 01/08/2018 [facility] INR in Platelet poor plasma by Coagulation assay INR in Platelet poor plasma by Coagulation assay 2.22 01/07/2018 [facility] Prothrombin time (PT) in platelet poor plasma by coagulation assay Prothrombin time (PT) in platelet poor plasma by coagulation assay 23.1 11.9 - 14.5 01/07/2018 [facility] Automated urine sediment leukocyte count by microscopy (number/high power field) Automated urine sediment leukocyte count by microscopy (number/high power field) null 0 - 5 12/30/2017 [facility] Bacteria detection in urine sediment by light microscopy Bacteria detection in urine sediment by light microscopy NONE NONE 12/30/2017 [facility] Epithelial cells detection in urine sediment by light microscopy Epithelial cells detection in urine sediment by light microscopy FEW NONE 12/30/2017 [facility] Erythrocytes detection in urine sediment by light microscopy Erythrocytes detection in urine sediment by light microscopy null 0 - 5 12/30/2017 [facility] Specific gravity of Urine by Test strip Specific gravity of Urine by Test strip 1.005 1.010 - 1.025 12/30/2017 [facility] Urine clarity Urine clarity CLEAR CLEAR 12/30/2017 [facility] Urine color determination Urine color determination YELLOW YELLOW 12/30/2017 [facility] Urine erythrocytes detection Urine erythrocytes detection 1+ NEGATIVE 12/30/2017 [facility] Urine glucose detection Urine glucose detection NEGATIVE NEGATIVE 12/30/2017 [facility] Urine ketones detection by automated test strip Urine ketones detection by automated test strip NEGATIVE NEGATIVE 12/30/2017 [facility] Urine leukocyte esterase detection by dipstick Urine leukocyte esterase detection by dipstick NEGATIVE NEGATIVE 12/30/2017 [facility] Urine nitrite detection Urine nitrite detection NEGATIVE NEGATIVE 12/30/2017 [facility] Urine pH measurement by automated test strip Urine pH measurement by automated test strip 6 5 - 7 12/30/2017 [facility] Urine protein measurement by test strip (mass/volume) Urine protein measurement by test strip (mass/volume) NEGATIVE NEGATIVE 12/30/2017 [facility] Urine total bilirubin measurement (mass/volume) Urine total bilirubin measurement (mass/volume) NEGATIVE NEGATIVE 12/30/2017 [facility] Urine urobilinogen measurement by test strip (mass/volume) Urine urobilinogen measurement by test strip (mass/volume) 0.2 0.2 - 1 12/30/2017 [facility] Activated partial thromboplastin time (aPTT) in platelet poor plasma bycoagulation assay Activated partial thromboplastin time (aPTT) in platelet poor plasma bycoagulation assay 44.3 23.8 - 35.5 12/30/2017 [facility] Serum or plasma creatine kinase MB measurement (mass/volume) Serum or plasma creatine kinase MB measurement (mass/volume) 1.60 0 - 5.0 12/29/2017 [facility] Serum or plasma creatine kinase measurement (enzymatic activity/volume) Serum or plasma creatine kinase measurement (enzymatic activity/volume) 20 30 - 200 12/29/2017 [facility] Troponin I measurement by highly sensitive enzyme immunoassay Troponin I measurement by highly sensitive enzyme immunoassay 0.017 0 - 0.300 12/29/2017 [facility] Phosphorus measurement Phosphorus measurement 3.2 2.3 - 4.7 12/28/2017 [facility] Serum or plasma magnesium measurement (mass/volume) Serum or plasma magnesium measurement (mass/volume) 1.8 1.3 - 2.1 12/28/2017 [facility] Vital Signs Vital Sign Value Date Comments Source Encounters Location Location Details Encounter Type Encounter Number Reason For Visit Attending Provider ADM Date DC Date Status Source Discharged Inpatient [id number] ALAN OSUNA MD 12/28/2017 01/08/2018 [facility] Procedures Procedure Code Date Perfomer Comments Source Computed tomography of chest with contrast [id number] 12/29/2017 [facility] X-ray of chest, two views [id number] 12/28/2017 [facility]
--- OUTSIDE RECORDS SUMMARY | 2018-08-03 15:55 | XMS REPORT | Clinical Summary ---
Author Author [facility] Address Unknown Phone Unavailable Care Team Providers Care Prepleater Name Role Phone Allyson Robles MD PCP Allergies Comments Active Allergy Reactions Severity Noted Date Cefdinir Rash Low 03/04/2016 Vancomycin Anaphylaxis High 03/04/2016 Medications End Date Status Medication Sig Dispensed Refills Start Date Active furosemide (LASIX) 40 MG 0 tablet 6 Active levothyroxine (SYNTHROID, 0 LEVOTHROID) 75 MCG tablet 6 Active metFORMIN XR 0 (GLUCOPHATE-XR) 500 MG 24 6 hr tablet Active KLOR-CON M10 10 mEq CR 0 tablet 6 Active simvastatin (ZOCOR) 40 MG 0 tablet 6 Active JANUVIA 100 mg tablet 0 6 Active triamcinolone (KENALOG) 0 0.1 % ointment 6 Active warfarin (COUMADIN) 7.5 0 MG tablet 6 Active warfarin (COUMADIN) 6 MG 0 tablet 6 Active glimepiride (AMARYL) 1 MG 0 tablet 6 10/02/2017 allopurinol (ZYLOPRIM) Take 1 tablet 180 tablet 2 100 MG tablet (100 mg 7 total) by mouth 2 (two) times a day. Active Problems Problem Noted Date Right thigh pain 01/25/2017 Right hip pain 01/25/2017 Right knee pain 01/25/2017 Avascular necrosis of bone of right hip 01/25/2017 Post-traumatic osteoarthritis of right hip 01/25/2017 Chronic idiopathic gout of multiple sites 05/24/2016 Mixed hyperlipidemia 05/24/2016 Encounter for monitoring allopurinol therapy 05/24/2016 Psoriasis 05/24/2016 Spine pain, lumbosacral 05/24/2016 Pacemaker Overview: Since age 11 History of blood clots Overview: DVT right leg; Retinal vein occlusion; "light" stroke Diabetes mellitus Family History Medical History Relation Name Comments Cancer Father Merritt Melanoma Diabetes Father Merritt Latent Heart disease Father Merritt Cancer Mother Tamika Non hodgkins lymphoma Lymphoma Mother Tamika Cancer Sister Aleyda Coloc Cancer Sister Danish Breast Rheumatologic disease Sister Danish Relation Name Status Comments Father Merritt Mother Tamika Sister Aleyda Sister Danish Social History Date Tobacco Use Types Packs/Day Years Used Never Smoker Smokeless Tobacco: Never Used Alcohol Use Drinks/Week oz/Week Comments No Sex Assigned at Date Recorded Not on file Industry Job Start Date Occupation Not on file Not on file Not on file Travel End Travel History Travel Start No recent travel history available. Last Filed Vital Signs Not on file Plan of Treatment Health Maintenance Due Date Last Done Comments DIABETIC RETINAL EYE EXAM 1966 DIABETIC FOOT EXAM 1976 URINE MICROALBUMIN 1976 COLON CANCER SCREENING 2016 SHINGLES VACCINES (#1) 2016 INFLUENZA VACCINE 01/03/2018 Results Not on fileafter 08/02/2017 Insurance Payer Benefit Subscriber ID Type Phone Address Plan / Group [facility] MEDICARE AARP xxxxxxxxx O MEDICARE COMPLETE [facility] Advance Directives Patient has advance care planning documents on file. For more information, yvonne bowers contact: Fidel García [address] [place] [address]
--- NOTE | 2018-08-03 16:33 | NUR ---
RT notified of need for ABG.
--- NOTE | 2018-08-03 16:39 | NUR ---
Rt called for ABG at this time.
[2018-08-03 17:13] LABS: BASOPHILS # (AUTO) 0.1 (0.0-0.1); BASOPHILS % 0.6 % (0.0-1.0); EOSINOPHILS # (AUTO) 0.1 (0.0-0.4); EOSINOPHILS % 0.9 % (0.0-6.0); HEMATOCRIT 45.4 % (38.2-49.6); HEMOGLOBIN 14.2 g/dL (14.0-18.0); LYMPHOCYTES # (AUTO) 0.7 (1.0-3.2); LYMPHOCYTES % 7.4 % (18.0-39.1); MEAN CORPUSCULAR HEMOGLOBIN 30.1 pg (28-32); MEAN CORPUSCULAR HGB CONC 31.3 g/dL (31-35); MEAN CORPUSCULAR VOLUME 96.4 fL (81-99); MONOCYTES # (AUTO) 0.7 (0.2-0.8); MONOCYTES % 7.9 % (4.4-11.3); NEUTROPHILS # (AUTO) 7.4 (2.1-6.9); NEUTROPHILS % 82.8 % (38.7-80.0); PLATELET COUNT 210 x10e3/uL (140-360); RED BLOOD COUNT 4.71 x10e6/uL (4.3-5.7)
--- NOTE | 2018-08-03 17:27 | Diagnostic Imaging Report ---
EXAMINATION: CHEST 2 VIEWS INDICATION: ^SOB ^[id number] ^[id number] COMPARISON: Chest radiograph 01/08/2018 FINDINGS: PA and lateral views TUBES and LINES: Stable dual lead pacemaker device overlying the left upper chest with leads overlying the right atrial appendage and right ventricle. Epicardial ICD leads, unchanged. LUNGS: Lungs are well inflated. Bilateral pulmonary edema. Subsegmental atelectasis in both lung bases. PLEURA: Small bilateral pleural effusions. No pneumothorax. HEART AND MEDIASTINUM: Moderate enlargement of the cardiac silhouette is unchanged. BONES AND SOFT TISSUES: No acute osseous lesion. Soft tissues are unremarkable. UPPER ABDOMEN: No free air under the diaphragm. IMPRESSION: Bilateral pulmonary edema. Signed by: Dr. Chata Russell M.D. on 08/03/2018 5:24 PM
--- NOTE | 2018-08-03 17:37 | NUR ---
Lab called to draw blood at this time.
[2018-08-03 17:51] LABS: ABG HCO3 31 mmol/L (23-28); ABG PCO2 47 mmHg (41-51); ABG PH 7.42 (7.31-7.41); ABG PO2 60 mmHg (80-105)
[2018-08-03 18:14] LABS: ALANINE AMINOTRANSFERASE 19 IU/L (0-55); ALBUMIN/GLOBULIN RATIO 0.7 (0.8-2.0); ALKALINE PHOSPHATASE 103 IU/L (40-150); ANION GAP 12.8 mmol/L (8-16); BLOOD UREA NITROGEN 22 mg/dL (7-26); BUN/CREATININE RATIO 21 (6-25); CALCIUM 9.4 mg/dL (8.4-10.2); CARBON DIOXIDE 30 mmol/L (22-29); CHLORIDE 101 mmol/L (98-107); CREATININE, SERUM 1.04 mg/dL (0.72-1.25); EST GLOMERULAR FILTRATION RATE > 60 ML/MIN (60-); GLUCOSE 108 mg/dL (74-118); MAGNESIUM 2.3 MG/DL (1.3-2.1); POTASSIUM 3.8 mmol/L (3.5-5.1); SODIUM 140 mmol/L (136-145)
[2018-08-03] MEDS ORDERED: FUROSEMIDE INJ 10 MG/ML 4 ML VIAL IV ONE (18:15)
[2018-08-03] MEDS ORDERED: SODIUM CHLORIDE FLUSH 10 ML SYR INJ PRN (18:30)
[2018-08-03] MEDS ORDERED: ASPIRIN 81 MG CHEW TAB PO ONE (18:30)
--- OUTSIDE RECORDS SUMMARY | 2018-08-03 19:06 | XMS REPORT | Clinical Summary ---
Author Author [facility] Address Unknown Phone Unavailable Care Team Providers Care Steward Dishwasher Name Role Phone Allyson Robles MD PCP [...] ID Type Phone Address Plan / Group [facility] MEDICARE AARP xxxxxxxxx O MEDICARE COMPLETE [facility] Advance Directives Patient has advance care planning documents on file. For more information, yvonne bowers contact: Fidel García [address] [place] [address]
[2018-08-03 19:11] LABS: CREATINE KINASE MB 0.9 ng/mL (0-5.0)
--- NOTE | 2018-08-03 19:17 | NUR ---
Walking rounds with UVALDO Dumont.
[2018-08-03 21:26] VITALS: BP 130/111
[2018-08-03 22:26] VITALS: BP 130/111
[2018-08-04] VITALS (7 sets, daily range): BP systolic 92–118; BP diastolic 48–94
--- NOTE | 2018-08-04 01:25 | NUR ---
sent blood sample to lab for second cardiac marker.
[2018-08-04 02:28] LABS: CREATINE KINASE MB 0.9 ng/mL (0-5.0)
[2018-08-04 06:03] LABS: BASOPHILS # (AUTO) 0.1 (0.0-0.1); BASOPHILS % 0.8 % (0.0-1.0); EOSINOPHILS # (AUTO) 0.1 (0.0-0.4); EOSINOPHILS % 1.1 % (0.0-6.0); HEMATOCRIT 45.4 % (38.2-49.6); HEMOGLOBIN 13.7 g/dL (14.0-18.0); LYMPHOCYTES # (AUTO) 0.6 (1.0-3.2); LYMPHOCYTES % 7.3 % (18.0-39.1); MEAN CORPUSCULAR HEMOGLOBIN 29.5 pg (28-32); MEAN CORPUSCULAR HGB CONC 30.2 g/dL (31-35); MEAN CORPUSCULAR VOLUME 97.8 fL (81-99); MONOCYTES # (AUTO) 0.6 (0.2-0.8); MONOCYTES % 8.1 % (4.4-11.3); NEUTROPHILS # (AUTO) 6.5 (2.1-6.9); NEUTROPHILS % 82.2 % (38.7-80.0); PLATELET COUNT 217 x10e3/uL (140-360); RED BLOOD COUNT 4.64 x10e6/uL (4.3-5.7); RED CELL DISTRIBUTION WIDTH 19.9 % (11.7-14.4)
[2018-08-04 06:19] LABS: ANION GAP 13.8 mmol/L (8-16); BLOOD UREA NITROGEN 19 mg/dL (7-26); BUN/CREATININE RATIO 21 (6-25); CALCIUM 8.8 mg/dL (8.4-10.2); CARBON DIOXIDE 34 mmol/L (22-29); CHLORIDE 99 mmol/L (98-107); CREATININE, SERUM 0.91 mg/dL (0.72-1.25); EST GLOMERULAR FILTRATION RATE > 60 ML/MIN (60-); GLUCOSE 94 mg/dL (74-118); POTASSIUM 3.8 mmol/L (3.5-5.1); SODIUM 143 mmol/L (136-145)
[2018-08-04 06:55] LABS: CREATINE KINASE MB 0.6 ng/mL (0-5.0)
--- NOTE | 2018-08-04 07:51 | Diagnostic Imaging Report ---
EXAMINATION: CHEST SINGLE (PORTABLE) INDICATION: CHF COMPARISON: Chest x-ray 08/03/2018 FINDINGS: AP view TUBES and LINES: Left sided pacemaker with 2 intact leads. Median sternotomy wires. The cardiac pacer wires are partially visualized. LUNGS: Lungs are well inflated. There are bibasilar atelectasis. Unchanged bilateral pulmonary edema. PLEURA: No pleural effusion or pneumothorax. HEART AND MEDIASTINUM: Cardiac size is moderately enlarged. BONES AND SOFT TISSUES: No acute osseous lesion. Soft tissues are unremarkable. UPPER ABDOMEN: No free air under the diaphragm. IMPRESSION: Stable bilateral pulmonary edema. Signed by: Dr. Jose Oneill M.D. on 08/04/2018 7:47 AM
[2018-08-04] MEDS: LISINOPRIL 10 MG TAB PO SCH (09:21)
[2018-08-04] MEDS: FUROSEMIDE INJ 10 MG/ML 4 ML VIAL IV SCH ×2 (09:21→16:42)
[2018-08-04] MEDS: SPIRONOLACTONE 25 MG TAB PO SCH ×2 (09:21→16:42)
[2018-08-04 15:07] LABS: CREATINE KINASE MB 0.6 ng/mL (0-5.0)
[2018-08-04] MEDS: ENOXAPARIN SOD INJ 40 MG/0.4 ML SYR SC SCH (16:42)
[2018-08-04] MEDS ORDERED: NON-FORMULARY MEDICATION (Potassium Chloride (Klor-Con 10) 10 MEQ) PO SCH (17:00)
[2018-08-04] MEDS ORDERED: ERGOCALCIFEROL 50,000 UNIT CAP PO ONE (17:30)
--- NOTE | 2018-08-04 19:39 | History and Physical ---
HISTORY OF PRESENT ILLNESS: He is a 52-year-old patient with Down syndrome, cardiomyopathy, and congestive heart failure, came here with progressive shortness of breath. REVIEW OF SYSTEMS: The patient is confused and cannot give me information due to the Down syndrome. PAST MEDICAL HISTORY: Hypertension, cardiomyopathy, and Down syndrome. SOCIAL HISTORY: We do not know if he smokes or drink. ALLERGIES: HE HAS ALLERGIES TO AND VANCOMYCIN. PHYSICAL EXAMINATION: VITAL SIGNS: Blood pressure 111/60, temperature 37.8, heart rate 89 per minute, respiratory rate 22 per minute, and oxygen saturation 92%. HEART: Regular rhythm. No murmur or added sound. LUNGS: Showed decreased breath sounds bilaterally. ABDOMEN: Soft. EXTREMITIES: Show no evidence of cyanosis, edema, or trauma. LABORATORY DATA: On the BMP, sodium 143, potassium 3.8, chloride 99, CO2 of 34, BUN 19, creatinine 0.91, glucose 94. CBC, white blood count 7.90, hemoglobin 13.7, hematocrit 45.4, and platelet count 217,000. AST 23, ALT 19, total bilirubin 0.9, alkaline phosphatase 103. On the chest x-ray, it showed stable bilateral pulmonary edema. IMPRESSION: 1. Acute on chronic systolic congestive heart failure. 2. Hypertension. 3. Cardiomyopathy, which apparently is congenital. 4. Down syndrome. PLAN OF TREATMENT: We are going to continue aldactone 25 mg twice a day, lisinopril 10 mg daily, Lovenox 40 mg subcutaneous daily. Continue furosemide 40 mg IV twice a day. Cardiology consult with Dr. Woods. Echocardiogram has been ordered. We are going to continue to monitor BUN, creatinine, electrolytes, BMP tomorrow. MD PAZ Nieves/DONNAL /[id number]
--- NOTE | 2018-08-04 21:02 | NUR ---
Cardiology Consult Dictation# [id number]
[2018-08-04] MEDS: METFORMIN HCL 500 MG TAB PO SCH (21:21)
[2018-08-04] MEDS: SIMVASTATIN 40 MG TAB PO SCH (21:22)
[2018-08-05] VITALS (8 sets, daily range): BP systolic 84–138; BP diastolic 51–61
--- NOTE | 2018-08-05 04:11 | Consultation ---
DATE OF CONSULTATION: 08/04/2018 Cardiology Consultation Note REQUESTING PHYSICIAN: Festus Grossman MD REASON FOR CONSULTATION: Hypoxia. HISTORY OF PRESENT ILLNESS: A 52-year-old man with Down syndrome, permanent pacemaker, severe pulmonary hypertension, history of DVT/PE, chronic diastolic heart failure, remote history of cardiac surgery, and obstructive sleep apnea, who was sent to the ER from [facility]iology [facility] due to hypoxia with oxygen saturation of 60% on room air. History is limited due to patient's Down syndrome, but he denies any chest pain, edema, orthopnea, or PND. REVIEW OF SYSTEMS: Limited due to the patient's Down syndrome. PAST MEDICAL HISTORY: 1. Chronic diastolic heart failure. 2. Remote history of cardiac surgery. 3. Severe pulmonary hypertension. 4. Status post permanent pacemaker. 5. History of DVT/PE, on Coumadin. 6. Obstructive sleep apnea. 7. Morbid obesity. SOCIAL HISTORY: No tobacco, alcohol, or illicit drugs. FAMILY HISTORY: Noncontributory to current illness. ALLERGIES: PLEASE SEE EMR. MEDICATIONS: Please see medication reconciliation. PHYSICAL EXAMINATION: VITAL SIGNS: Temperature 99, pulse 62, respiratory rate 18, blood pressure 103/48, and oxygen saturation 95% on 4 L BiPAP. GENERAL: Obese gentleman, well developed, well nourished, in no acute distress. HEENT: Normocephalic and atraumatic. Pupils are equal. NECK: Supple. No thyromegaly or cervical lymphadenopathy. No carotid bruits. LUNGS: Clear to auscultation. No wheezes or crackles. CARDIOVASCULAR: Exam limited by body habitus, but appears normal rate, regular rhythm. No murmurs auscultated. ABDOMEN: Soft and nontender. EXTREMITIES: 1+ pitting edema. NEUROLOGIC: Awake and alert, nonfocal. LABORATORY DATA: WBC 7.9, hemoglobin 13.7, hematocrit 45.4, and platelets 217. Sodium 143, potassium 3.8, chloride 99, CO2 is 34, BUN 19, and creatinine 0.9. Troponin 0.022. BNP 94. Chest x-ray, stable bilateral pulmonary edema. IMPRESSION: 1. Acute hypoxic respiratory failure. 2. [id number] diastolic heart failure. 3. Severe pulmonary hypertension. 4. History of deep vein thrombosis/pulmonary embolism, on Coumadin therapy. 5. Status post permanent pacemaker. 6. Obstructive sleep apnea. 7. Remote history of cardiac surgery. 8. Down syndrome. RECOMMENDATIONS: 1. Continue diuretics. The patient appears to be diuresing well. Monitor closely. By continuing current diuretics, the patient has had good urine output. Strict I's and O's and daily weights. Monitor creatinine closely. 2. Continue home cardiac medications; otherwise, specifically the patient's warfarin given his history of DVT/PE. Echo has been done, however, it was a very technically difficult study, systolic function appeared to be preserved. No further cardiac evaluation is indicated at this time. Thank you for this consult. We will continue to follow. Angela Morales MD [facility]L /[id number]
[2018-08-05 06:27] LABS: ANION GAP 11.6 mmol/L (8-16); BLOOD UREA NITROGEN 17 mg/dL (7-26); BUN/CREATININE RATIO 15 (6-25); CALCIUM 8.8 mg/dL (8.4-10.2); CARBON DIOXIDE 32 mmol/L (22-29); CHLORIDE 98 mmol/L (98-107); CREATININE, SERUM 1.12 mg/dL (0.72-1.25); EST GLOMERULAR FILTRATION RATE > 60 ML/MIN (60-); GLUCOSE 134 mg/dL (74-118); POTASSIUM 3.6 mmol/L (3.5-5.1); SODIUM 138 mmol/L (136-145)
[2018-08-05] MEDS: LEVOTHYROXINE SODIUM 75 MCG TAB PO SCH (06:29)
[2018-08-05] MEDS: GLIMEPIRIDE 2 MG TAB PO SCH (08:29)
[2018-08-05] MEDS: FUROSEMIDE INJ 10 MG/ML 4 ML VIAL IV SCH ×2 (08:29→21:13)
[2018-08-05] MEDS: SPIRONOLACTONE 25 MG TAB PO SCH ×2 (08:29→16:40)
[2018-08-05] MEDS: METFORMIN HCL 500 MG TAB PO SCH ×2 (08:30→21:13)
[2018-08-05] MEDS: POTASSIUM CHLORIDE 10MEQ EA PO SCH ×2 (08:30→16:40)
[2018-08-05] MEDS: LISINOPRIL 10 MG TAB PO SCH (08:31)
[2018-08-05] MEDS: ALLOPURINOL 100 MG TAB PO SCH (08:31)
[2018-08-05] MEDS: METOPROLOL SUCCINATE 25 MG TAB XL PO SCH (08:31)
[2018-08-05] MEDS: WARFARIN SOD 2.5 MG TAB PO SCH (08:32)
[2018-08-05] MEDS ORDERED: LEVOTHYROXINE SODIUM 75 MCG TAB PO SCH (09:00)
--- NOTE | 2018-08-05 12:42 | Progress Note ---
DATE: 08/05/2018 Internal Medicine Progress Note SUBJECTIVE: The patient is feeling better today. OBJECTIVE: VITAL SIGNS: Blood pressure 94/51, temperature 98.9, heart rate 63 per minute, respiratory rate 21 per minute, oxygen saturation 96%. HEART: Showed regular rhythm. No murmur or added sound. LUNGS: Clear bilaterally. ABDOMEN: Soft. EXTREMITIES: Show no evidence of cyanosis, edema, or trauma. LABORATORY DATA: BMP; sodium 138, potassium 3.6, chloride 98, CO2 of 32, BUN 17, creatinine 1.12, glucose 134. CBC; white blood count 7.90, hemoglobin 13.7, hematocrit 45.4, platelet count 217,000. AST 23, ALT 19, total bilirubin 0.9, alkaline phosphatase 103. FINAL IMPRESSION: 1. Acute on chronic systolic congestive heart failure. 2. Hypertension. 3. Cardiomyopathy, which is a congenital type cardiomyopathy. 4. Down syndrome. 5. Obesity. PLAN OF TREATMENT: Continue aldactone 25 mg twice a day, lisinopril 10 mg daily, Lovenox 40 mg subcutaneous daily for DVT prophylaxis, levothyroxine 75 mcg daily, simvastatin 40 mg daily, furosemide 40 mg IV twice a day, metformin 1000 mg in the morning, Coumadin 7.5 mg daily. We are going to order PT and INR daily. Continue allopurinol 100 mg daily, metformin 500 mg at bedtime, potassium chloride 10 mEq twice a day, glimepiride 1 mg daily, metoprolol 25 mg daily. We are going to decrease the Lasix to 40 mg IV once a day because of the borderline low blood pressure. MD PAZ Nieves/MODL /[id number]
[2018-08-05 14:55] LABS: INR 1.79; PROTHROMBIN TIME 21.4 seconds (11.9-14.5)
[2018-08-05] MEDS: ENOXAPARIN SOD INJ 40 MG/0.4 ML SYR SC SCH (16:40)
--- NOTE | 2018-08-05 19:59 | Progress Note ---
DATE: 08/05/2018 Cardiology Progress Note SUBJECTIVE: The patient denies chest pain or shortness of breath. OBJECTIVE: VITAL SIGNS: Temperature 98.4 degrees, pulse 71, respiratory rate 21, blood pressure 98/54, and oxygen saturation 96% on nasal cannula. GENERAL: Obese gentleman, in no acute distress. LUNGS: Clear to auscultation bilaterally. No wheezes or crackles. CARDIOVASCULAR: Limited by body habitus, but appears normal rate, regular rhythm, and no murmurs. ABDOMEN: Soft, nontender. EXTREMITIES: 1+ pitting edema. CARDIAC MEDICATIONS: 1. Spironolactone 25 mg p.o. b.i.d. 2. Warfarin 7.5 mg p.o. daily. 3. Levothyroxine 75 mcg p.o. daily. 4. Simvastatin 40 mg p.o. at bedtime. 5. Metoprolol succinate 25 mg p.o. daily. 6. Lisinopril 10 mg p.o. daily. 7. Furosemide 40 mg IV daily. LABORATORY DATA: INR 1.79. Telemetry, V-paced. IMPRESSION: 1. Acute hypoxic respiratory failure. 2. Acute on chronic diastolic heart failure. 3. Severe pulmonary hypertension. 4. History of deep vein thrombosis/pulmonary embolism, on Coumadin therapy. 5. Status post permanent pacemaker. 6. Obstructive sleep apnea. 7. Remote history of cardiac surgery. 8. Down syndrome. RECOMMENDATIONS: Continue diuretics. We would continue Lasix at b.i.d. dosing. We would recommend continuing IV diuretics with b.i.d. dosing. Hold antihypertensive therapy instead. Strict I's and O's and daily weights. Monitor creatinine closely. Continue warfarin. Given the patient's history of DVT/PE, no further cardiac evaluation is currently indicated at this time. Thank you for this consult. We will continue to follow. Angela Morales MD ABS/MODL /[id number]
[2018-08-05] MEDS: SIMVASTATIN 40 MG TAB PO SCH (21:13)
[2018-08-06] VITALS (9 sets, daily range): BP systolic 83–128; BP diastolic 47–71
[2018-08-06 05:37] LABS: ANION GAP 10.5 mmol/L (8-16); BLOOD UREA NITROGEN 14 mg/dL (7-26); BUN/CREATININE RATIO 16 (6-25); CARBON DIOXIDE 32 mmol/L (22-29); CHLORIDE 97 mmol/L (98-107); CREATININE, SERUM 0.87 mg/dL (0.72-1.25); EST GLOMERULAR FILTRATION RATE > 60 ML/MIN (60-); GLUCOSE 123 mg/dL (74-118); POTASSIUM 3.5 mmol/L (3.5-5.1); SODIUM 136 mmol/L (136-145)
[2018-08-06] MEDS: LEVOTHYROXINE SODIUM 75 MCG TAB PO SCH (05:53)
--- NOTE | 2018-08-06 07:36 | NUR ---
pt resting in bed, no c/o pain or s/s distress. currently wearing bipap. will continue to monitor.
[2018-08-06] MEDS ORDERED: FUROSEMIDE INJ 10 MG/ML 4 ML VIAL IV SCH (09:00)
[2018-08-06] MEDS: LISINOPRIL 10 MG TAB PO SCH (09:00)
[2018-08-06] MEDS: METOPROLOL SUCCINATE 25 MG TAB XL PO SCH (09:00)
--- NOTE | 2018-08-06 09:46 | NUR ---
EDUCATED ABOUT IMM, SIGNED, FILED IN CHART, WITH COPY LEFT WITH FAMILY AT BEDSIDE.
[2018-08-06] MEDS: GLIMEPIRIDE 2 MG TAB PO SCH (10:14)
[2018-08-06] MEDS: FUROSEMIDE INJ 10 MG/ML 4 ML VIAL IV SCH ×2 (10:14→22:00)
[2018-08-06] MEDS: SPIRONOLACTONE 25 MG TAB PO SCH ×2 (10:14→18:20)
[2018-08-06] MEDS: ALLOPURINOL 100 MG TAB PO SCH (10:15)
[2018-08-06] MEDS: WARFARIN SOD 2.5 MG TAB PO SCH (10:15)
[2018-08-06] MEDS: POTASSIUM CHLORIDE 10MEQ EA PO SCH ×2 (10:15→18:20)
[2018-08-06] MEDS: METFORMIN HCL 500 MG TAB PO SCH ×2 (10:15→22:00)
--- NOTE | 2018-08-06 13:09 | Progress Note ---
DATE: Cardiology Progress Note SUBJECTIVE: The patient is found lying comfortably in bed, in no distress. He denies any chest pain or shortness of breath. OBJECTIVE: VITAL SIGNS: Temperature is 97.5, heart rate is 71, respirations are 18, blood pressure is 100/58, and oxygen saturation is 96% on 5 L nasal cannula. GENERAL: Well appearing, in no apparent distress. CARDIOVASCULAR: Regular rate and rhythm. LUNGS: Diminished breath sounds at bases. ABDOMEN: Soft, nontender. EXTREMITIES: 1+ edema. CARDIOVASCULAR MEDICATIONS: Reviewed. LABORATORY DATA: Reviewed. Creatinine 0.87. IMPRESSION: 1. Acute hypoxic respiratory failure, improved. 2. Acute on chronic diastolic heart failure. 3. Severe pulmonary hypertension. 4. History of deep venous thrombosis and pulmonary embolism, on anticoagulation. 5. Permanent pacemaker. 6. Obstructive sleep apnea. 7. Down syndrome. 8. Obesity. RECOMMENDATIONS: Continue with IV diuresis. Switch to p.o. soon. Continue to monitor his daily labs and ins and outs. Continue warfarin for his history of DVT and PE. No further cardiac testing is required at this point in time. Ramin Artis DO BM/MODL /[id number]
--- NOTE | 2018-08-06 16:49 | NUR ---
pt able to amb with stand by assist. currently sitting up in bedside recliner. family brought home walker. uses urinal unless has bm. amb to bathroom for bm this morning, sob on exertion. per pt, he uses home o2 prn. will continue to monitor.
[2018-08-06] MEDS: ENOXAPARIN SOD INJ 40 MG/0.4 ML SYR SC SCH (18:20)
[2018-08-06] MEDS: SIMVASTATIN 40 MG TAB PO SCH (22:00)
[2018-08-07 04:00] VITALS: BP 114/56
[2018-08-07 05:46] LABS: INR 2.06; PROTHROMBIN TIME 23.9 seconds (11.9-14.5)
[2018-08-07] MEDS: LEVOTHYROXINE SODIUM 75 MCG TAB PO SCH (06:25)
[2018-08-07 07:24] VITALS: BP 107/63
[2018-08-07 08:00] VITALS: BP 107/63
--- NOTE | 2018-08-07 08:07 | NUR ---
pt resting in bed, no c/o pain or s/s distress. will continue to monitor.
--- NOTE | 2018-08-07 09:24 | NUR ---
per md, only bnp needed at this time for am labs
[2018-08-07] MEDS: FUROSEMIDE INJ 10 MG/ML 4 ML VIAL IV SCH ×2 (10:10→21:11)
[2018-08-07] MEDS: GLIMEPIRIDE 2 MG TAB PO SCH (10:10)
[2018-08-07] MEDS: SPIRONOLACTONE 25 MG TAB PO SCH ×2 (10:10→17:38)
[2018-08-07] MEDS: WARFARIN SOD 2.5 MG TAB PO SCH (10:11)
[2018-08-07] MEDS: POTASSIUM CHLORIDE 10MEQ EA PO SCH ×2 (10:11→17:38)
[2018-08-07] MEDS: METFORMIN HCL 500 MG TAB PO SCH ×2 (10:11→21:11)
[2018-08-07] MEDS: ALLOPURINOL 100 MG TAB PO SCH (10:12)
[2018-08-07] MEDS: METOPROLOL SUCCINATE 25 MG TAB XL PO SCH (10:12)
[2018-08-07] MEDS: LISINOPRIL 10 MG TAB PO SCH (10:12)
[2018-08-07 11:27] VITALS: BP 108/60
--- NOTE | 2018-08-07 13:49 | NUR ---
CASE MANAGEMENT INITIAL ASSESSMENT Forging Dies Final Finisher to bedside to discuss plan of care with patient/family. CM/SW role and care transitions discussed. Anticipated discharge plan discussed along with duration of care. CM/SW discussed patients right to make decisions in care. CM/SW work hours given. Patient lives: SISTER DAVIDA RYAN [phone] Admit/Transfer: FROM HOME Hospital/ER visits since last admit:0 POA/Emergency contact: SISTER DONALD HUERTA [phone] Current/Previous Home Health: NONE PCP/Follow-up Care: DR Severo PILLAI Current/Previous DME: CPAP, PORTABLE 02, CONCENTRATOR, WHEELCHAIR, WALKER AND GLUCOMETER Medications (referring to index hospitalization or the first time you were in the hospital) a. Were changes made in your medications when you were in the hospital on [date of index hospitalization]? NO Note: If no or not sure, please skip to question d b. Did you understand the changes? N/A c. Were you able to obtain your new medications right away? N/A d. Were you able to take your medications like the doctor wanted you to? Yes e. Did the hospital give you an accurate, easy to understand list of medications when you left? Yes Scale of 1-10 how comfortable does patient feel with disease management in outpatient setting: PT HAS MENTAL RETARDATION AND SISTER DAVIDA STATES HE HIDES FOOD IN HIS CLOSET Other Services: NONE Employment Status: UNEMPLOYED Areas of Concerns: PT NON-COMPLIANT Referral Needs: MAY BENEFIT FROM HOME HEALTH BUT SISTER STATES HE HAD IT BEFORE AND "THEY WERE USELESS" Education Needs: PT MENTALLY DEPENDENT ON HIS SISTER FOR MEDS AND COMPLIANCE DUE TO MENTAL RETARDATION IMM/MURPHY given and signed (if applicable): ON ADMIT Goal for discharge:HOME AND INDEPENDENT POSSIBLE CM/SW left business card at the bedside with contact information. Name and number was also written on the patients whiteboard. Patient verbalized understanding of discussion. CM will follow-up with ongoing discharge and transition of care needs.
[2018-08-07 15:33] VITALS: BP 98/62
--- NOTE | 2018-08-07 16:37 | NUR ---
PATIENT RECEIVED FROM [facility] PER WHEEL CHAIR. ALERT AND VERBALLY RESPONSIVE, DENIED PAIN AT THIS TIME. ABLE TO ASSIST WITH TRANSFER FROM WHEEL CHAIR TO RECLINING CHAIR. REDNESS NOTED TO CHEST AND NECK, EDEMA TO LOWER EXTREMITIES. ALL PERSONAL ITEMS CLOSE TO PATIENT, CALL LIGHT AT REACH. V/S 96.2-84-20-102/53 AND 96% ON 2L VIA N/C.
[2018-08-07] MEDS: ENOXAPARIN SOD INJ 40 MG/0.4 ML SYR SC SCH (17:38)
[2018-08-07 19:15] VITALS: BP 99/56
[2018-08-07] MEDS: SIMVASTATIN 40 MG TAB PO SCH (21:11)
[2018-08-08] VITALS (7 sets, daily range): BP systolic 89–117; BP diastolic 40–59
[2018-08-08] MEDS: LEVOTHYROXINE SODIUM 75 MCG TAB PO SCH (06:01)
[2018-08-08 06:31] LABS: INR 2.23; PROTHROMBIN TIME 25.4 seconds (11.9-14.5)
--- NOTE | 2018-08-08 08:40 | NUR ---
Pt received resting in bed. Alert and oriented x4 with saline lock #22 in left forearm. Pt noted with right lower leg bruise, on oxygen via nasal canula. Oriented to staff and surroundings, encouraged to press call if help needed. Emotional support given. Fall precautions maintained. Will monitor
[2018-08-08] MEDS: METFORMIN HCL 500 MG TAB PO SCH ×2 (08:50→21:30)
[2018-08-08] MEDS: SPIRONOLACTONE 25 MG TAB PO SCH ×2 (08:50→17:00)
[2018-08-08] MEDS: GLIMEPIRIDE 2 MG TAB PO SCH (08:50)
[2018-08-08] MEDS: FUROSEMIDE INJ 10 MG/ML 4 ML VIAL IV SCH ×2 (08:50→21:30)
[2018-08-08] MEDS: ALLOPURINOL 100 MG TAB PO SCH (08:51)
[2018-08-08] MEDS: POTASSIUM CHLORIDE 10MEQ EA PO SCH ×2 (08:51→17:05)
[2018-08-08] MEDS: LISINOPRIL 10 MG TAB PO SCH (09:00)
[2018-08-08] MEDS: METOPROLOL SUCCINATE 25 MG TAB XL PO SCH (09:00)
--- NOTE | 2018-08-08 15:12 | Diagnostic Imaging Report ---
EXAMINATION: CHEST SINGLE (PORTABLE) INDICATION: CHF. COMPARISON: Chest radiograph 08/03/2018. FINDINGS: TUBES and LINES: Left sided pacemaker with with leads in unchanged position. LUNGS: Mild perihilar and interstitial opacities. No evidence of lobar consolidation. PLEURA: No pleural effusion or pneumothorax. HEART AND MEDIASTINUM: Moderate cardiomegaly. BONES AND SOFT TISSUES: No acute osseous lesion. Status post median sternotomy. UPPER ABDOMEN: No free air under the diaphragm. IMPRESSION: Moderate cardiomegaly with mild pulmonary interstitial edema. Signed by: Dr. Darell Mariano MD on 08/08/2018 3:09 PM
[2018-08-08] MEDS ORDERED: WARFARIN SOD 2.5 MG TAB PO SCH (17:00)
[2018-08-08] MEDS ORDERED: WARFARIN SOD 5 MG TAB PO SCH (17:00)
[2018-08-08] MEDS: ENOXAPARIN SOD INJ 40 MG/0.4 ML SYR SC SCH (17:05)
--- NOTE | 2018-08-08 19:19 | NUR ---
Received report from previous nurse. Patient in no pain or distress. call light within reach.
[2018-08-08] MEDS: SIMVASTATIN 40 MG TAB PO SCH (21:30)
[2018-08-09] VITALS: BP 118/69
[2018-08-09 00:15] VITALS: BP 118/69
[2018-08-09 04:00] VITALS: BP 116/56
[2018-08-09] MEDS: LEVOTHYROXINE SODIUM 75 MCG TAB PO SCH (05:57)
[2018-08-09 06:11] LABS: BASOPHILS # (AUTO) 0.1 (0.0-0.1); BASOPHILS % 0.8 % (0.0-1.0); EOSINOPHILS # (AUTO) 0.2 (0.0-0.4); EOSINOPHILS % 2.5 % (0.0-6.0); HEMATOCRIT 46.2 % (38.2-49.6); HEMOGLOBIN 14.5 g/dL (14.0-18.0); LYMPHOCYTES # (AUTO) 0.7 (1.0-3.2); MEAN CORPUSCULAR HEMOGLOBIN 30.1 pg (28-32); MEAN CORPUSCULAR HGB CONC 31.4 g/dL (31-35); MEAN CORPUSCULAR VOLUME 95.9 fL (81-99); MONOCYTES # (AUTO) 0.7 (0.2-0.8); NEUTROPHILS # (AUTO) 5.5 (2.1-6.9); NEUTROPHILS % 76.1 % (38.7-80.0); PLATELET COUNT 219 x10e3/uL (140-360); RED BLOOD COUNT 4.82 x10e6/uL (4.3-5.7); RED CELL DISTRIBUTION WIDTH 19.2 % (11.7-14.4)
[2018-08-09 06:37] LABS: ANION GAP 12.7 mmol/L (8-16); BLOOD UREA NITROGEN 14 mg/dL (7-26); BUN/CREATININE RATIO 17 (6-25); CALCIUM 9.2 mg/dL (8.4-10.2); CARBON DIOXIDE 32 mmol/L (22-29); CHLORIDE 93 mmol/L (98-107); CREATININE, SERUM 0.84 mg/dL (0.72-1.25); EST GLOMERULAR FILTRATION RATE > 60 ML/MIN (60-); GLUCOSE 114 mg/dL (74-118); POTASSIUM 3.7 mmol/L (3.5-5.1); SODIUM 134 mmol/L (136-145)
--- NOTE | 2018-08-09 07:09 | NUR ---
Gave report to oncoming nurse. No pain or distress. call light within reach.
[2018-08-09 07:52] LABS: INR 2.43; PROTHROMBIN TIME 27.1 seconds (11.9-14.5)
[2018-08-09 07:58] VITALS: BP 114/65
[2018-08-09] MEDS: FUROSEMIDE INJ 10 MG/ML 4 ML VIAL IV SCH (09:08)
[2018-08-09] MEDS: GLIMEPIRIDE 2 MG TAB PO SCH (09:08)
[2018-08-09] MEDS: SPIRONOLACTONE 25 MG TAB PO SCH (09:08)
[2018-08-09] MEDS: METFORMIN HCL 500 MG TAB PO SCH (09:08)
[2018-08-09] MEDS: POTASSIUM CHLORIDE 10MEQ EA PO SCH (09:08)
[2018-08-09] MEDS: ALLOPURINOL 100 MG TAB PO SCH (09:09)
[2018-08-09 09:10] VITALS: BP 114/65
--- NOTE | 2018-08-09 09:10 | NUR ---
Pt received resting in bed. All meds given as ordered. Pt is for possible discharge today. Emotional support given. Fall precautions maintained. Call within reach. Will monitor
[2018-08-09 12:10] VITALS: BP 134/71
--- NOTE | 2018-08-09 13:06 | NUR ---
Pt and sister (Rosalba) given discharge instructions regarding meds, diet, activities, and follow up appointment. Both verbalized understanding of teaching. Leftr floor via wheelchair to private car
== END 2018-08-09 13:46 | disposition home or self-care (01) | DRG 291 ==
LOC: ER 15:52 → ERHOLD 18:28 → IMCU 21:03 → MED/SURG3 08-07 16:27
DX: I11.0 Hypertensive heart disease with heart failure (principal); J96.01 Acute respiratory failure with hypoxia; Z68.42 Body mass index [BMI] 45.0-49.9, adult; I50.23 Acute on chronic systolic (congestive) heart failure; I42.9 Cardiomyopathy, unspecified; Q90.9 Down syndrome, unspecified; Z95.0 Presence of cardiac pacemaker; I27.20 Pulmonary hypertension, unspecified; Z86.718 Personal history of other venous thrombosis and embolism; Z79.01 Long term (current) use of anticoagulants; Z86.711 Personal history of pulmonary embolism; G47.33 Obstructive sleep apnea (adult) (pediatric); E11.9 Type 2 diabetes mellitus without complications; E66.9 Obesity, unspecified
CPT/HCPCS: 36415; 36600; 71045; 71046; 80048; 80053; 82550; 82553; 82805; 82948; 83735; 83880; 84484; 85025; 85610; 93005; 93307; 94660; 96360; 97139; 99284; J1650; J1940

== ENCOUNTER 2018-11-14 14:02 | Inpatient (IN) | payer MEDICARE ==
[~2018-11-14] VITALS: Ht 162.6 cm; Wt 116.7 kg
--- OUTSIDE RECORDS SUMMARY | 2018-11-14 14:05 | XMS REPORT | Continuity of Care Document ---
Author Author [facility] Interface Address Unknown Phone Unavailable Problems Problem Status Onset Date Classification Date Reported Comments Source DVT Active 02/12/2015 Problem 08/09/2018 [facility] Bronchospasm Active 07/29/2014 Problem 08/09/2018 [facility] Down's syndrome Active 07/29/2014 Problem 08/09/2018 [facility] Pneumonia Active 07/29/2014 Problem 08/09/2018 [facility] CHF exacerbation Active Problem 08/09/2018 [facility] Pulmonary edema cardiac cause Active Problem 08/09/2018 [facility] Respiratory failure with hypoxia Active Problem 08/09/2018 [facility] Medications Medication Details Route Status Patient Instructions Ordering Provider Order Date Source Levothyroxine Sodium 75 Mcg Tablet, 75 Mcg Oral Daily Active 08/09/2018 [facility] Warfarin Sodium 6 Mg Tablet, 1 Tab Oral Daily Active 01/08/2018 [facility] Levothyroxine Sodium 75 Mcg Tablet, 1 Tab Oral Rt Daily Active 02/13/2015 [facility] Simvastatin 40 Mg Tablet, 40 Mg Oral Daily for Cholesterol Active 02/13/2015 [facility] Simvastatin 40 Mg Tablet, 40 Mg Oral Daily for Cholesterol Active 02/13/2015 [facility] Potassium Chloride (K Dur*) 10 Meq Tabcr, 10 Meq Oral Daily At 1700 Active Pillai 08/04/2014 [facility] Potassium Chloride (K Dur*) 10 Meq Tabcr, 10 Meq Oral Daily At 1700 Active Pillai 08/04/2014 [facility] Allopurinol 100 Mg Tablet Daily Active [facility] Ergocalciferol (Vitamin D2) (Ergocalciferol) 8,000 Unit/1 Ml Drops Once Active [facility] Furosemide (Lasix) 40 Mg Tablet Daily Active [facility] Glimepiride 2 Mg Tablet Daily Active [facility] Levothyroxine Sodium 75 Mcg Tablet Daily Active [facility] Metformin Hcl 500 Mg Tablet Every Morning Active [facility] Metformin Hcl 500 Mg Tablet Bedtime Active [facility] Metoprolol Succinate 25 Mg Tab.er.24h Daily Active [facility] Potassium Chloride (Klor-Con 10) 10 Meq Tablet.er Twice A Day Active [facility] Simvastatin 40 Mg Tablet Bedtime Active [facility] Warfarin Sodium 1 Mg Tablet Daily Active [facility] Allopurinol 100 Mg Tablet Daily Active [facility] Ergocalciferol (Vitamin D2) (Ergocalciferol) 8,000 Unit/1 Ml Drops Once Active [facility] Furosemide (Lasix) 40 Mg Tablet Daily Active [facility] Glimepiride 2 Mg Tablet Daily Active [facility] Levothyroxine Sodium 75 Mcg Tablet Daily Active [facility] Metoprolol Succinate 25 Mg Tab.er.24h Daily Active [facility] Potassium Chloride (Klor-Con 10) 10 Meq Tablet.er Twice A Day Active [facility] Warfarin Sodium 1 Mg Tablet Daily Active [facility] Allergies, Adverse Reactions, Alerts Substance Category Reaction Severity Reaction type Status Date Reported Comments Source Vancomycin Unknown Allergy to Substance Active 08/03/2018 [facility] Cefdinir ITCHING Mild Allergy to Substance Active 08/03/2018 [facility] Immunizations Immunization Date Given Site Status Last Updated Comments Source Results Order Name Results Value Reference Range Date Interpretation Comments Source Prothrombin time (PT) in platelet poor plasma by coagulation assay 27.1 11.9 - 14.5 08/09/2018 [facility] INR in Platelet poor plasma by Coagulation assay 2.43 08/09/2018 [facility] Blood leukocytes automated count (number/volume) 7.20 4.8 - 10.8 08/09/2018 [facility] Blood erythrocytes automated count (number/volume) 4.82 4.3 - 5.7 08/09/2018 [facility] Blood hemoglobin measurement (moles/volume) 14.5 14.0 - 18.0 08/09/2018 [facility] Automated blood hematocrit (volume fraction) 46.2 38.2 - 49.6 08/09/2018 [facility] Automated erythrocyte mean corpuscular volume 95.9 81 - 99 08/09/2018 [facility] Automated erythrocyte mean corpuscular hemoglobin (mass per erythrocyte) 30.1 28 - 32 08/09/2018 [facility] Automated erythrocyte mean corpuscular hemoglobin concentration measurement (mass/volume) 31.4 31 - 35 08/09/2018 [facility] RDW BldCo-Rto 19.2 11.7 - 14.4 08/09/2018 [facility] Automated blood platelet count (count/volume) 219 140 - 360 08/09/2018 [facility] Automated blood segmented neutrophil count as percentage of total leukocytes 76.1 38.7 - 80.0 08/09/2018 [facility] Automated blood lymphocyte count as percentage ot total leukocytes 10.0 18.0 - 39.1 08/09/2018 [facility] Automated blood monocyte count as percentage of total leukocytes 10.0 4.4 - 11.3 08/09/2018 [facility] Automated blood eosinophil count as percentage of total leukocytes 2.5 0.0 - 6.0 08/09/2018 [facility] Automated blood basophil count as percentage of total leukocytes 0.8 0.0 - 1.0 08/09/2018 [facility] IM GRANULOCYTES % 0.6 0.0 - 1.0 08/09/2018 [facility] Automated blood neutrophil count 5.5 2.1 - 6.9 08/09/2018 [facility] Blood lymphocytes count (number/volume) 0.7 1.0 - 3.2 08/09/2018 [facility] Blood monocytes automated count (number/volume) 0.7 0.2 - 0.8 08/09/2018 [facility] Automated blood eosinophil count 0.2 0.0 - 0.4 08/09/2018 [facility] Automated blood basophil count (count/volume) 0.1 0.0 - 0.1 08/09/2018 [facility] Absolute Immature Granulocyte (auto 0.04 0 - 0.1 08/09/2018 [facility] Serum or plasma sodium measurement (moles/volume) 134 136 - 145 08/09/2018 [facility] Serum or plasma potassium measurement (moles/volume) 3.7 3.5 - 5.1 08/09/2018 [facility] Serum or plasma chloride measurement (moles/volume) 93 98 - 107 08/09/2018 [facility] Serum or plasma carbon dioxide, total measurement (moles/volume) 32 22 - 29 08/09/2018 [facility] Serum or plasma anion gap 12.7 8 - 16 08/09/2018 [facility] Serum or plasma urea nitrogen measurement (mass/volume) 14 7 - 26 08/09/2018 [facility] Serum or plasma creatinine measurement (mass/volume) 0.84 0.72 - 1.25 08/09/2018 [facility] Serum or plasma urea nitrogen/creatinine mass ratio 17 6 - 25 08/09/2018 [facility] Estimated glomerular filtration rate (GFR) determination > 60 60 08/09/2018 [facility] Glucose measurement 114 74 - 118 08/09/2018 [facility] Serum or plasma calcium measurement (mass/volume) 9.2 8.4 - 10.2 08/09/2018 [facility] Serum or plasma magnesium measurement (mass/volume) 2.0 1.3 - 2.1 08/09/2018 [facility] Capillary blood glucose measurement by glucometer (mass/volume) 117 70 - 120 08/07/2018 [facility] BNP Bld-mCnc 44.3 0 - 100 08/07/2018 [facility] Serum or plasma creatine kinase measurement (enzymatic activity/volume) 13 30 - 200 08/04/2018 [facility] Serum or plasma creatine kinase MB measurement (mass/volume) 0.60 0 - 5.0 08/04/2018 [facility] Troponin I measurement by highly sensitive enzyme immunoassay 0.022 0 - 0.300 08/04/2018 [facility] Serum or plasma total bilirubin measurement (mass/volume) 0.9 0.2 - 1.2 08/03/2018 [facility] Aspartate Amino Transf (AST/SGOT) 23 5 - 34 08/03/2018 [facility] Serum or plasma alanine aminotransferase measurement (enzymatic activity/volume) 19 0 - 55 08/03/2018 [facility] Serum or plasma protein measurement (mass/volume) 7.3 6.5 - 8.1 08/03/2018 [facility] Serum or plasma albumin measurement (mass/volume) 3.0 3.5 - 5.0 08/03/2018 [facility] Plasma globulin measurement (mass/volume) 4.3 2.3 - 3.5 08/03/2018 [facility] Serum or plasma albumin/globulin mass ratio 0.7 0.8 - 2.0 08/03/2018 [facility] Serum or plasma alkaline phosphatase measurement (enzymatic activity/volume) 103 40 - 150 08/03/2018 [facility] Arterial blood pH measurement 7.42 7.31 - 7.41 08/03/2018 [facility] pCO2 BldA 47 41 - 51 08/03/2018 [facility] pCO2 BldA 60 80 - 105 08/03/2018 [facility] Arterial blood bicarbonate measurement (moles/volume) 31 23 - 28 08/03/2018 [facility] Arterial blood base excess by calculation 6.0 -2 - 3 - 2 08/03/2018 [facility] Arterial blood oxygen saturation measurement 91.0 95 - 98 08/03/2018 [facility] FiO2 40 08/03/2018 [facility] Capillary blood glucose measurement by glucometer (mass/volume) Capillary blood glucose measurement by glucometer (mass/volume) 198 70 - 120 01/08/2018 [facility] Automated blood basophil count (count/volume) Automated blood basophil count (count/volume) 0.1 0.0 - 0.1 01/08/2018 [facility] Automated blood basophil count as percentage of total leukocytes Automated blood basophil count as percentage of total leukocytes 0.9 0.0 - 1.0 01/08/2018 [facility] Automated blood eosinophil count Automated blood eosinophil count 0.1 0.0 - 0.4 01/08/2018 [facility] Automated blood eosinophil count as percentage of total leukocytes Automated blood eosinophil count as percentage of total leukocytes 1.1 0.0 - 6.0 01/08/2018 [facility] Automated blood hematocrit (volume fraction) Automated blood hematocrit (volume fraction) 46.0 38.2 - 49.6 01/08/2018 [facility] Automated blood lymphocyte count as percentage ot total leukocytes Automated blood lymphocyte count as percentage ot total leukocytes 7.1 18.0 - 39.1 01/08/2018 [facility] Automated blood monocyte count as percentage of total leukocytes Automated blood monocyte count as percentage of total leukocytes 13.5 4.4 - 11.3 01/08/2018 [facility] Automated blood neutrophil count Automated blood neutrophil count 6.8 2.1 - 6.9 01/08/2018 [facility] Automated blood platelet count (count/volume) Automated blood platelet count (count/volume) 262 140 - 360 01/08/2018 [facility] Automated blood segmented neutrophil count as percentage of total leukocytes Automated blood segmented neutrophil count as percentage of total leukocytes 76.8 38.7 - 80.0 01/08/2018 [facility] Automated erythrocyte mean corpuscular hemoglobin (mass per erythrocyte) Automated erythrocyte mean corpuscular hemoglobin (mass per erythrocyte) 30.5 28 - 32 01/08/2018 [facility] Automated erythrocyte mean corpuscular hemoglobin concentration measurement (mass/volume) Automated erythrocyte mean corpuscular hemoglobin concentration measurement (mass/volume) 32.0 31 - 35 01/08/2018 [facility] Automated erythrocyte mean corpuscular volume Automated erythrocyte mean corpuscular volume 95.4 81 - 99 01/08/2018 [facility] Blood erythrocytes automated count (number/volume) Blood erythrocytes automated count (number/volume) 4.82 4.3 - 5.7 01/08/2018 [facility] Blood hemoglobin measurement (moles/volume) Blood hemoglobin measurement (moles/volume) 14.7 14.0 - 18.0 01/08/2018 [facility] Blood leukocytes automated count (number/volume) Blood leukocytes automated count (number/volume) 8.86 4.8 - 10.8 01/08/2018 [facility] Blood lymphocytes count (number/volume) Blood lymphocytes count (number/volume) 0.6 1.0 - 3.2 01/08/2018 [facility] Blood monocytes automated count (number/volume) Blood monocytes automated count (number/volume) 1.2 0.2 - 0.8 01/08/2018 [facility] Red Cell Distribution Width 18.2 11.7 - 14.4 01/08/2018 [facility] IM GRANULOCYTES % 0.6 0.0 - 1.0 01/08/2018 [facility] Absolute Immature Granulocyte (auto 0.05 0 - 0.1 01/08/2018 [facility] B-Type Natriuretic Peptide 49.3 0 - 100 01/08/2018 [facility] Estimated glomerular filtration rate (GFR) determination Estimated glomerular filtration rate (GFR) determination null 60 01/08/2018 [facility] Glucose measurement Glucose measurement 164 74 - 118 01/08/2018 [facility] Plasma globulin measurement (mass/volume) Plasma globulin measurement (mass/volume) 4.8 2.3 - 3.5 01/08/2018 [facility] Serum or plasma alanine aminotransferase measurement (enzymatic activity/volume) Serum or plasma alanine aminotransferase measurement (enzymatic activity/volume) 20 0 - 55 01/08/2018 [facility] Serum or plasma albumin measurement (mass/volume) Serum or plasma albumin measurement (mass/volume) 2.4 3.5 - 5.0 01/08/2018 [facility] Serum or plasma albumin/globulin mass ratio Serum or plasma albumin/globulin mass ratio 0.5 0.8 - 2.0 01/08/2018 [facility] Serum or plasma alkaline phosphatase measurement (enzymatic activity/volume) Serum or plasma alkaline phosphatase measurement (enzymatic activity/volume) 136 40 - 150 01/08/2018 [facility] Serum or plasma anion gap Serum or plasma anion gap 13.9 8 - 16 01/08/2018 [facility] Serum or plasma calcium measurement (mass/volume) Serum or plasma calcium measurement (mass/volume) 9.7 8.4 - 10.2 01/08/2018 [facility] Serum or plasma carbon dioxide, total measurement (moles/volume) Serum or plasma carbon dioxide, total measurement (moles/volume) 32 22 - 29 01/08/2018 [facility] Serum or plasma chloride measurement (moles/volume) Serum or plasma chloride measurement (moles/volume) 93 98 - 107 01/08/2018 [facility] Serum or plasma creatinine measurement (mass/volume) Serum or plasma creatinine measurement (mass/volume) 0.90 0.72 - 1.25 01/08/2018 [facility] Serum or plasma potassium measurement (moles/volume) Serum or plasma potassium measurement (moles/volume) 3.9 3.5 - 5.1 01/08/2018 [facility] Serum or plasma protein measurement (mass/volume) Serum or plasma protein measurement (mass/volume) 7.2 6.5 - 8.1 01/08/2018 [facility] Serum or plasma sodium measurement (moles/volume) Serum or plasma sodium measurement (moles/volume) 135 136 - 145 01/08/2018 [facility] Serum or plasma total bilirubin measurement (mass/volume) Serum or plasma total bilirubin measurement (mass/volume) 1.8 0.2 - 1.2 01/08/2018 [facility] Serum or plasma urea nitrogen measurement (mass/volume) Serum or plasma urea nitrogen measurement (mass/volume) 22 7 - 26 01/08/2018 [facility] Serum or plasma urea nitrogen/creatinine mass ratio Serum or plasma urea nitrogen/creatinine mass ratio 24 6 - 25 01/08/2018 [facility] Aspartate Amino Transf (AST/SGOT) 26 5 - 34 01/08/2018 [facility] INR in Platelet poor plasma by Coagulation assay INR in Platelet poor plasma by Coagulation assay 2.22 01/07/2018 [facility] Prothrombin time (PT) in platelet poor plasma by coagulation assay Prothrombin time (PT) in platelet poor plasma by coagulation assay 23.1 11.9 - 14.5 01/07/2018 [facility] Urine color determination YELLOW YELLOW 12/30/2017 [facility] Urine clarity CLEAR CLEAR 12/30/2017 [facility] Specific gravity of Urine by Test strip 1.005 1.010 - 1.025 12/30/2017 [facility] Urine pH measurement by automated test strip 6 5 - 7 12/30/2017 [facility] Urine leukocyte esterase detection by dipstick NEGATIVE NEGATIVE 12/30/2017 [facility] Urine nitrite detection NEGATIVE NEGATIVE 12/30/2017 [facility] Urine protein measurement by test strip (mass/volume) NEGATIVE NEGATIVE 12/30/2017 [facility] Urine glucose detection NEGATIVE NEGATIVE 12/30/2017 [facility] Urine ketones detection by automated test strip NEGATIVE NEGATIVE 12/30/2017 [facility] Urine urobilinogen measurement by test strip (mass/volume) 0.2 0.2 - 1 12/30/2017 [facility] Urine total bilirubin measurement (mass/volume) NEGATIVE NEGATIVE 12/30/2017 [facility] Urine erythrocytes detection 1+ NEGATIVE 12/30/2017 [facility] Automated urine sediment leukocyte count by microscopy (number/high power field) 0-5 0 - 5 12/30/2017 [facility] Erythrocytes detection in urine sediment by light microscopy 6-10 0 - 5 12/30/2017 [facility] Bacteria detection in urine sediment by light microscopy NONE NONE 12/30/2017 [facility] Epithelial cells detection in urine sediment by light microscopy FEW NONE 12/30/2017 [facility] Automated urine sediment leukocyte count by microscopy (number/high power field) Automated urine sediment leukocyte count by microscopy (number/high power field) null 0 - 5 12/30/2017 [facility] Bacteria detection in urine sediment by light microscopy Bacteria detection in urine sediment by light microscopy NONE NONE 12/30/2017 [facility] Epithelial cells detection in urine sediment by light microscopy Epithelial cells detection in urine sediment by light microscopy FEW NONE 12/30/2017 [facility] Erythrocytes detection in urine sediment by light microscopy Erythrocytes detection in urine sediment by light microscopy null 0 - 5 12/30/2017 [facility] Specific gravity of Urine by Test strip Specific gravity of Urine by Test strip 1.005 1.010 - 1.025 12/30/2017 [facility] Urine clarity Urine clarity CLEAR CLEAR 12/30/2017 [facility] Urine color determination Urine color determination YELLOW YELLOW 12/30/2017 [facility] Urine erythrocytes detection Urine erythrocytes detection 1+ NEGATIVE 12/30/2017 [facility] Urine glucose detection Urine glucose detection NEGATIVE NEGATIVE 12/30/2017 [facility] Urine ketones detection by automated test strip Urine ketones detection by automated test strip NEGATIVE NEGATIVE 12/30/2017 [facility] Urine leukocyte esterase detection by dipstick Urine leukocyte esterase detection by dipstick NEGATIVE NEGATIVE 12/30/2017 [facility] Urine nitrite detection Urine nitrite detection NEGATIVE NEGATIVE 12/30/2017 [facility] Urine pH measurement by automated test strip Urine pH measurement by automated test strip 6 5 - 7 12/30/2017 [facility] Urine protein measurement by test strip (mass/volume) Urine protein measurement by test strip (mass/volume) NEGATIVE NEGATIVE 12/30/2017 [facility] Urine total bilirubin measurement (mass/volume) Urine total bilirubin measurement (mass/volume) NEGATIVE NEGATIVE 12/30/2017 [facility] Urine urobilinogen measurement by test strip (mass/volume) Urine urobilinogen measurement by test strip (mass/volume) 0.2 0.2 - 1 12/30/2017 [facility] Activated partial thromboplastin time (aPTT) in platelet poor plasma bycoagulation assay 44.3 23.8 - 35.5 12/30/2017 [facility] Activated partial thromboplastin time (aPTT) in platelet poor plasma bycoagulation assay Activated partial thromboplastin time (aPTT) in platelet poor plasma bycoagulation assay 44.3 23.8 - 35.5 12/30/2017 [facility] Serum or plasma creatine kinase MB measurement (mass/volume) Serum or plasma creatine kinase MB measurement (mass/volume) 1.60 0 - 5.0 12/29/2017 [facility] Serum or plasma creatine kinase measurement (enzymatic activity/volume) Serum or plasma creatine kinase measurement (enzymatic activity/volume) 20 30 - 200 12/29/2017 [facility] Troponin I measurement by highly sensitive enzyme immunoassay Troponin I measurement by highly sensitive enzyme immunoassay 0.017 0 - 0.300 12/29/2017 [facility] [facility] Phosphorus measurement 3.2 2.3 - 4.7 12/28/2017 [facility] Phosphorus measurement Phosphorus measurement 3.2 2.3 - 4.7 12/28/2017 [facility] Serum or plasma magnesium measurement (mass/volume) Serum or plasma magnesium measurement (mass/volume) 1.8 1.3 - 2.1 12/28/2017 [facility] Vital Signs Vital Sign Value Date Comments Source Encounters Location Location Details Encounter Type Encounter Number Reason For Visit Attending Provider ADM Date DC Date Status Source Discharged Inpatient [id number] ALAN OSUNA MD 12/28/2017 01/08/2018 [facility] Discharged Inpatient [id number] VISHAL PILLAI MD 08/03/2018 08/09/2018 [facility] Procedures Procedure Code Date Perfomer Comments Source X-ray of chest, two views [id number] 08/03/2018 STEFANO [facility] Computed tomography of chest with contrast [id number] 12/29/2017 THAO [facility] X-ray of chest, two views [id number] 12/28/2017 GIO [facility]
--- OUTSIDE RECORDS SUMMARY | 2018-11-14 14:05 | XMS REPORT | Clinical Summary ---
Author Author [facility] Address Unknown Phone Unavailable Care Team Providers Care Retail Gift Card Merchandising Name Role Phone Allyson Robles MD PCP [...] glimepiride (AMARYL) 1 MG 0 tablet 6 Active Problems Problem Noted Date Right thigh [...] DIABETIC FOOT EXAM 1976 URINE MICROALBUMIN 1976 COLONOSCOPY SCREENING 2016 SHINGLES VACCINES (#1) 2016 INFLUENZA VACCINE 01/03/2019 Results Not on fileafter 11/13/2017 Insurance Type Payer Benefit Subscriber ID Effective Phone Address Plan / Dates Group [facility] MEDICARE AARP xxxxxxxxx 2016-P MEDICARE resent COMPLETE [facility] Advance Directives Patient has advance care planning documents on file. For more information, yvonne bowers contact: Fidel García [address] [place] [address]
[2018-11-14 14:49] LABS: BASOPHILS # (AUTO) 0.1 (0.0-0.1); BASOPHILS % 0.8 % (0.0-1.0); EOSINOPHILS # (AUTO) 0.1 (0.0-0.4); EOSINOPHILS % 0.6 % (0.0-6.0); HEMATOCRIT 48.1 % (38.2-49.6); LYMPHOCYTES # (AUTO) 0.6 (1.0-3.2); MEAN CORPUSCULAR HEMOGLOBIN 30.4 pg (28-32); MEAN CORPUSCULAR HGB CONC 31.2 g/dL (31-35); MEAN CORPUSCULAR VOLUME 97.4 fL (81-99); MONOCYTES # (AUTO) 0.9 (0.2-0.8); MONOCYTES % 8.8 % (4.4-11.3); NEUTROPHILS # (AUTO) 8.5 (2.1-6.9); NEUTROPHILS % 83.2 % (38.7-80.0); PLATELET COUNT 243 x10e3/uL (140-360); RED BLOOD COUNT 4.94 x10e6/uL (4.3-5.7); RED CELL DISTRIBUTION WIDTH 20.3 % (11.7-14.4)
[2018-11-14 14:56] LABS: INR 2.67; PROTHROMBIN TIME 29.2 seconds (11.9-14.5)
[2018-11-14 14:57] LABS: PARTIAL THROMBOPLASTIN TIME 44.6 seconds (23.8-35.5)
[2018-11-14 15:06] LABS: ALANINE AMINOTRANSFERASE 18 IU/L (0-55); ALBUMIN/GLOBULIN RATIO 0.7 (0.8-2.0); ALKALINE PHOSPHATASE 151 IU/L (40-150); ANION GAP 12.8 mmol/L (8-16); BLOOD UREA NITROGEN 23 mg/dL (7-26); BUN/CREATININE RATIO 24 (6-25); CALCIUM 9.5 mg/dL (8.4-10.2); CARBON DIOXIDE 33 mmol/L (22-29); CHLORIDE 96 mmol/L (98-107); CREATINE KINASE 10 IU/L (30-200); CREATININE, SERUM 0.97 mg/dL (0.72-1.25); EST GLOMERULAR FILTRATION RATE > 60 ML/MIN (60-); GLUCOSE 136 mg/dL (74-118); POTASSIUM 3.8 mmol/L (3.5-5.1); SODIUM 138 mmol/L (136-145)
[2018-11-14] MEDS ORDERED: FUROSEMIDE INJ 10 MG/ML 4 ML VIAL IV ONE (15:15)
[2018-11-14 15:16] LABS: B-TYPE NATRIURETIC PEPTIDE2 193.4 pg/mL (0-100)
--- NOTE | 2018-11-14 16:07 | Diagnostic Imaging Report ---
EXAM: CHEST SINGLE (PORTABLE), AP Portable DATE: 11/15/19 Time stamp on exam: 2:52 PM INDICATION: Shortness of breath COMPARISON: 08/08/2018 FINDINGS: LINES/TUBES: Sternotomy wire sutures and a dual lead cardiac device from a left subclavian approach again noted. LUNGS: Diffuse pulmonary edema appears worse when compared to the prior study. PLEURA: No effusions or pneumothorax. HEART AND MEDIASTINUM: Heart is massively enlarged. BONES AND SOFT TISSUES: No acute findings. IMPRESSION: Cardiomegaly with diffuse pulmonary edema. Signed by: Dr. Mirza Vallejo DO on 11/14/2018 4:04 PM
[2018-11-14] MEDS ORDERED: SODIUM CHLORIDE FLUSH 10 ML SYR INJ PRN (17:15)
--- OUTSIDE RECORDS SUMMARY | 2018-11-14 17:24 | XMS REPORT | Clinical Summary ---
Author Author [facility] [employer] Address Unknown Phone Unavailable Care Team Providers Care Software Tester Name Role Phone Allyson Robles MD PCP [...] Effective Phone Address Plan / Dates Group [facility] MEDICARE AARP xxxxxxxxx 2016-P MEDICARE resent COMPLETE [facility] Advance Directives Patient has advance care planning documents on file. For more information, yvonne bowers contact: Fidel García [address] [place] [address]
--- NOTE | 2018-11-14 17:43 | NUR ---
Aaron fan in [facility] - 11/14/18 at 1745 by AMCFRIDAULE Report to Rocío RN
--- NOTE | 2018-11-14 17:45 | NUR ---
Report called to UVALDO Alford in ICU
--- NOTE | 2018-11-14 18:17 | NUR ---
pt arrived from ER via stretcher in stable condition, transferred to bed. will continue to transfer
[2018-11-14 18:18] VITALS: BP 91/70
[2018-11-14 19:00] VITALS: BP 106/31
[2018-11-14 20:00] VITALS: BP 120/65
[2018-11-14 21:00] VITALS: BP 107/70
[2018-11-14 22:00] VITALS: BP 94/63
[2018-11-14 23:00] VITALS: BP 96/72
[2018-11-15] VITALS (22 sets, daily range): BP systolic 88–157; BP diastolic 47–95
[2018-11-15 01:07] LABS: CREATINE KINASE MB 1.4 ng/mL (0-5.0)
[2018-11-15 04:54] LABS: BASOPHILS # (AUTO) 0.1 (0.0-0.1); BASOPHILS % 0.9 % (0.0-1.0); EOSINOPHILS # (AUTO) 0.1 (0.0-0.4); EOSINOPHILS % 0.9 % (0.0-6.0); HEMATOCRIT 44.1 % (38.2-49.6); HEMOGLOBIN 13.6 g/dL (14.0-18.0); LYMPHOCYTES # (AUTO) 0.7 (1.0-3.2); MEAN CORPUSCULAR HGB CONC 30.8 g/dL (31-35); MEAN CORPUSCULAR VOLUME 97.4 fL (81-99); MONOCYTES # (AUTO) 0.9 (0.2-0.8); NEUTROPHILS % 79.9 % (38.7-80.0); PLATELET COUNT 217 x10e3/uL (140-360); RED BLOOD COUNT 4.53 x10e6/uL (4.3-5.7); RED CELL DISTRIBUTION WIDTH 19.9 % (11.7-14.4)
[2018-11-15 05:07] LABS: ANION GAP 8.5 mmol/L (8-16); BLOOD UREA NITROGEN 20 mg/dL (7-26); BUN/CREATININE RATIO 25 (6-25); CALCIUM 8.9 mg/dL (8.4-10.2); CARBON DIOXIDE 36 mmol/L (22-29); CHLORIDE 97 mmol/L (98-107); EST GLOMERULAR FILTRATION RATE > 60 ML/MIN (60-); GLUCOSE 96 mg/dL (74-118); POTASSIUM 3.5 mmol/L (3.5-5.1); SODIUM 138 mmol/L (136-145)
--- NOTE | 2018-11-15 06:10 | Diagnostic Imaging Report ---
EXAM: CHEST SINGLE (PORTABLE), AP Portable DATE: 11/15/2018 INDICATION: CHF. Low oxygen saturation. COMPARISON: 11/14/2018 FINDINGS: LINES/TUBES: Left sided cardiac pacemaker again observed. LUNGS: Diffuse pulmonary edema is unchanged. PLEURA: No effusions or pneumothorax. HEART AND MEDIASTINUM: The cardiomediastinal silhouette is markedly enlarged. BONES AND SOFT TISSUES: No acute findings. IMPRESSION: No interval change in bilateral pulmonary edema. Signed by: Dr. Wilma Fisher M.D. on 11/15/2018 6:06 AM
--- NOTE | 2018-11-15 07:00 | NUR ---
pt in respiratory distress O2 sats in lower 70s, placed NRB 15L, O2 sats increased to 90's. paged Dr. Elfego Robles for further orders. will continue to monitor
[2018-11-15 08:07] LABS: CREATINE KINASE < 7 IU/L (30-200)
[2018-11-15] MEDS ORDERED: FUROSEMIDE INJ 10 MG/ML 4 ML VIAL IV SCH (09:00)
[2018-11-15] MEDS: SPIRONOLACTONE 25 MG TAB PO SCH (11:30)
--- NOTE | 2018-11-15 14:26 | Consultation ---
DATE OF CONSULTATION: 11/15/2018 Cardiology Consultation REASON FOR CONSULTATION: Dyspnea. HISTORY OF PRESENT ILLNESS: This is a 52-year-old man with Down syndrome, permanent pacemaker, severe pulmonary hypertension, history of DVT/PE, chronic diastolic heart failure, remote history of cardiac surgery, and obstructive sleep apnea, who was sent to the ER from [facility] due to hypoxia. The patient's history is limited due to his Down syndrome, but he states he started to become short of breath two days prior to admission. He currently denies any dyspnea, chest pain, palpitations, edema or orthopnea, but does endorse PND. REVIEW OF SYSTEMS: Limited due to the patient's Down syndrome. PAST MEDICAL HISTORY: 1. Chronic diastolic heart failure. 2. Remote history of cardiac surgery. 3. Severe pulmonary hypertension. 4. Status post permanent pacemaker. 5. History of DVT/PE, on Coumadin. 6. Obstructive sleep apnea. 7. Morbid obesity. ALLERGIES: PLEASE SEE EMR. MEDICATIONS: Please see medication list. SOCIAL HISTORY: No tobacco, alcohol, or illicit drugs. FAMILY HISTORY: Noncontributory to current illness. PHYSICAL EXAMINATION: VITAL SIGNS: Temperature 97.4 degrees, pulse 78, respiratory rate 20, blood pressure 112/52, and oxygen saturation 99% on BiPAP. GENERAL: Obese gentleman, well developed, well nourished, in no acute distress. HEENT: Normocephalic, atraumatic. Pupils equal. NECK: Supple. No thyromegaly or cervical lymphadenopathy. No carotid bruits. LUNGS: Clear to auscultation bilaterally. No wheeze or crackles. CARDIOVASCULAR: Normal rate. Regular rhythm. No murmurs. ABDOMEN: Soft, nontender. EXTREMITIES: 1+ pitting edema. NEUROLOGIC: Nonfocal exam. LABORATORY DATA: WBC 8.78, hemoglobin 13.6, hematocrit 44.1, platelets 217. Sodium 138, potassium 3.5, chloride 97, CO2 of 36, BUN 20, creatinine 0.8. Troponin 0.035. BNP 193. Chest x-ray, no interval change in bilateral pulmonary edema. EKG, A sense V pace. Telemetry, AV paced. IMPRESSION: 1. Acute hypoxic respiratory failure. 2. Acute on chronic diastolic heart failure. 3. Severe pulmonary hypertension. 4. History of deep venous thrombosis/pulmonary embolism, on Coumadin. 5. Status post permanent pacemaker. 6. Obstructive sleep apnea. 7. Remote history of cardiac surgery. 8. Down syndrome. RECOMMENDATIONS: Continue diuretics. Strict I and Os. Monitor creatinine. Daily weights. Continue current cardiac medications. Monitor INR, currently therapeutic. No further cardiac evaluation is indicated at this time. Thank you for this consult. We will continue to follow. Angela Morales MD ABS/MODL /[id number]
[2018-11-15 17:01] LABS: CREATINE KINASE < 7 IU/L (30-200)
[2018-11-15] MEDS: FUROSEMIDE INJ 10 MG/ML 4 ML VIAL IV SCH ×2 (17:48→21:43)
[2018-11-16] VITALS (24 sets, daily range): BP systolic 92–144; BP diastolic 43–79
[2018-11-16 05:01] LABS: BASOPHILS # (AUTO) 0.1 (0.0-0.1); BASOPHILS % 0.6 % (0.0-1.0); EOSINOPHILS # (AUTO) 0.1 (0.0-0.4); EOSINOPHILS % 0.6 % (0.0-6.0); HEMATOCRIT 43.9 % (38.2-49.6); HEMOGLOBIN 13.4 g/dL (14.0-18.0); LYMPHOCYTES # (AUTO) 0.8 (1.0-3.2); LYMPHOCYTES % 6.6 % (18.0-39.1); MEAN CORPUSCULAR HEMOGLOBIN 29.7 pg (28-32); MEAN CORPUSCULAR HGB CONC 30.5 g/dL (31-35); MEAN CORPUSCULAR VOLUME 97.3 fL (81-99); MONOCYTES # (AUTO) 1.5 (0.2-0.8); MONOCYTES % 11.9 % (4.4-11.3); NEUTROPHILS % 79.9 % (38.7-80.0); PLATELET COUNT 199 x10e3/uL (140-360); RED BLOOD COUNT 4.51 x10e6/uL (4.3-5.7); RED CELL DISTRIBUTION WIDTH 19.5 % (11.7-14.4)
[2018-11-16 05:25] LABS: ANION GAP 11.3 mmol/L (8-16); BLOOD UREA NITROGEN 12 mg/dL (7-26); BUN/CREATININE RATIO 16 (6-25); CALCIUM 8.7 mg/dL (8.4-10.2); CARBON DIOXIDE 36 mmol/L (22-29); CHLORIDE 96 mmol/L (98-107); CREATININE, SERUM 0.75 mg/dL (0.72-1.25); EST GLOMERULAR FILTRATION RATE > 60 ML/MIN (60-); GLUCOSE 154 mg/dL (74-118); POTASSIUM 3.3 mmol/L (3.5-5.1); SODIUM 140 mmol/L (136-145)
[2018-11-16] MEDS: SPIRONOLACTONE 25 MG TAB PO SCH (09:00)
[2018-11-16] MEDS: FUROSEMIDE INJ 10 MG/ML 4 ML VIAL IV SCH ×3 (09:37→20:41)
[2018-11-16] MEDS ORDERED: POTASSIUM CHLORIDE 20 MEQ TAB CR PO SCH (10:00)
[2018-11-16] MEDS ORDERED: DEXTROSE 50% SYRINGE 50 ML IV PRN ×2 (14:15)
--- NOTE | 2018-11-16 14:43 | Progress Note ---
DATE: 11/16/2018 Cardiology Progress Note SUBJECTIVE: The patient denies chest pain. He reports his shortness of breath is better, but remains on 15 L nasal cannula. OBJECTIVE: VITAL SIGNS: Temperature 98.1 degrees, pulse 74, respiratory rate 18, blood pressure 117/60, and oxygen 94% on nasal cannula. GENERAL: Obese gentleman, in no acute distress. Awake and alert. LUNGS: Clear to auscultation bilaterally. No wheezes or crackles. CARDIOVASCULAR: Normal rate regular rhythm. No murmur. Normal S1 and S2. ABDOMEN: Soft and nontender. EXTREMITIES: 1+ pitting edema. CARDIAC MEDICATIONS: Furosemide 60 mg IV t.i.d., spironolactone 25 mg p.o. daily. LABORATORY DATA: WBC 12.44, hemoglobin 13.4, hematocrit 43.9, and platelets 199. Sodium 140, potassium 3.3, chloride 96, CO2 of 36, BUN 12, and creatinine 0.75. TELEMETRY: V-paced. IMPRESSION: 1. Acute hypoxic respiratory failure. 2. Vfbnc-pp-spwqlsr diastolic heart failure. 3. Severe pulmonary hypertension. 4. History of deep venous thrombosis/pulmonary embolism, on Coumadin. 5. Status post permanent pacemaker. 6. Obstructive sleep apnea. 7. Remote history of cardiac surgery. 8. Down syndrome. RECOMMENDATIONS: Continue diuretics. Strict I's and Os. Monitor creatinine closely. Replete electrolytes. Continue current cardiac medications, otherwise. Monitor INR. No further cardiac evaluation is indicated at this time. Thank you for this consult. We will continue to follow. Angela Morales MD ABS/MODL /[id number]
[2018-11-16] MEDS: INSULIN LISPRO 100 UNIT/1 ML 3ML VIAL SQ SCH ×2 (18:03→20:36)
[2018-11-17] VITALS (15 sets, daily range): BP systolic 96–134; BP diastolic 47–98
[2018-11-17 05:31] LABS: BASOPHILS # (AUTO) 0.1 (0.0-0.1); BASOPHILS % 0.6 % (0.0-1.0); EOSINOPHILS # (AUTO) 0.1 (0.0-0.4); EOSINOPHILS % 1.3 % (0.0-6.0); HEMATOCRIT 44.1 % (38.2-49.6); HEMOGLOBIN 13.5 g/dL (14.0-18.0); LYMPHOCYTES # (AUTO) 0.6 (1.0-3.2); LYMPHOCYTES % 6.6 % (18.0-39.1); MEAN CORPUSCULAR HEMOGLOBIN 29.7 pg (28-32); MEAN CORPUSCULAR HGB CONC 30.6 g/dL (31-35); MEAN CORPUSCULAR VOLUME 96.9 fL (81-99); MONOCYTES # (AUTO) 0.8 (0.2-0.8); NEUTROPHILS # (AUTO) 7.6 (2.1-6.9); NEUTROPHILS % 82.1 % (38.7-80.0); PLATELET COUNT 202 x10e3/uL (140-360); RED BLOOD COUNT 4.55 x10e6/uL (4.3-5.7); RED CELL DISTRIBUTION WIDTH 19.5 % (11.7-14.4)
--- NOTE | 2018-11-17 06:09 | Diagnostic Imaging Report ---
EXAM: CHEST SINGLE (PORTABLE), AP Portable DATE: 11/17/2018 8:00 AM INDICATION: CHF. Acute dyspnea. COMPARISON: 11/15/2018 FINDINGS: LINES/TUBES: Left sided cardiac pacemaker again observed. LUNGS: Bilateral pulmonary venous congestion again noted. Bibasilar subsegmental atelectasis, unchanged. PLEURA: No effusions or pneumothorax. HEART AND MEDIASTINUM: The cardiomediastinal silhouette is markedly enlarged. BONES AND SOFT TISSUES: No acute findings. IMPRESSION: Stable examination. Bilateral pulmonary venous congestion or pulmonary edema. Signed by: Dr. Wilma Fisher M.D. on 11/17/2018 6:06 AM
[2018-11-17 06:13] LABS: ANION GAP 11.6 mmol/L (8-16); BLOOD UREA NITROGEN 10 mg/dL (7-26); BUN/CREATININE RATIO 13 (6-25); CALCIUM 9.1 mg/dL (8.4-10.2); CARBON DIOXIDE 38 mmol/L (22-29); CHLORIDE 96 mmol/L (98-107); CREATININE, SERUM 0.77 mg/dL (0.72-1.25); EST GLOMERULAR FILTRATION RATE > 60 ML/MIN (60-); GLUCOSE 109 mg/dL (74-118); POTASSIUM 3.6 mmol/L (3.5-5.1); SODIUM 142 mmol/L (136-145)
[2018-11-17] MEDS: INSULIN LISPRO 100 UNIT/1 ML 3ML VIAL SQ SCH ×4 (07:30→21:28)
[2018-11-17] MEDS: NYSTATIN 100,000 UNITS/GM CRM 30GM TUBE TOP SCH ×2 (09:00→17:06)
[2018-11-17] MEDS: FUROSEMIDE INJ 10 MG/ML 4 ML VIAL IV SCH ×3 (09:20→21:27)
[2018-11-17] MEDS: SPIRONOLACTONE 25 MG TAB PO SCH (09:20)
--- NOTE | 2018-11-17 13:30 | NUR ---
Physical therapy at bedside and assisting patient with bedside walker and patient ambulating in ICU unit area and tolerating well with O2 sats at 96% on O2 at 16 liters per nasal cannula. Respirations are even and unlabored and sisters at bedside. V/S are stable.
--- NOTE | 2018-11-17 18:23 | Progress Note ---
DATE: Internal Medicine Progress Note SUBJECTIVE: The patient is doing well. No significant complaints. PHYSICAL EXAMINATION: VITAL SIGNS: Blood pressure 118/58, temperature 98.8, heart rate 82 per minute, respiratory rate 16 per minute, and oxygen saturation 93%. HEART: Showed regular rhythm. Normal S1, S2 sounds. LUNGS: Clear bilaterally. ABDOMEN: Soft. EXTREMITIES: No evidence of cyanosis or hematoma. LABORATORY STUDIES: On BMP, sodium 142, potassium 3.6, chloride 96, CO2 of 38, BUN 10, creatinine 0.77, and glucose 109. CBC; white blood count 9.6, hemoglobin 13.5, hematocrit 44.1, and platelet count 202,000. PT 29.2, INR 2.67, and PTT 44.6. AST 23, ALT 18, total bilirubin 1.1, and alkaline phosphatase 151. FINAL IMPRESSION: 1. Acute on chronic systolic congestive heart failure. 2. Acute respiratory failure, which is resolved. 3. History of coronary artery disease. 4. Hypokalemia. 5. Leukocytosis. 6. Down syndrome. PLAN OF TREATMENT: Continue with furosemide 60 mg IV three times a day and aldactone 25 mg daily. Continue monitoring blood sugar before meals and at bedtime. Nystatin twice a day. We are going to repeat BMP tomorrow. The patient is ready to be transferred to the medical floor. We are going to remove the Leo catheter also. He is doing well. Oxygen saturation is getting better. MD PAZ Nieves/JARED /[id number]
--- NOTE | 2018-11-17 19:45 | NUR ---
Report called to Kevon Whittington and patient will be going to room 201 on Telemetry Box #9 with continous Pulse OX. Bipap will also be moved to his room. Will be transferred in his bed with O2 at 15 liters per nasal cannula. Sister (Ilana) also notified of patient moving to room 201.
--- NOTE | 2018-11-17 20:30 | NUR ---
RECEIVED PATIENT TO ROOM 201 IN STABLE CONDITION. HIGH FLOW NC @ 15. WALLACE CATH IN PLACED, DRAINING CLEAR AND YELLOW URINE. TELE W CONT PULSE #9- PACED. BED LOCKED AND IN LOWEST POSITION, CALL LIGHT WITHIN EASY REACH. BED ALARM ON. NO NEEDS VOICED AT THIS TIME. RT IN, BIPAP IN ROOM FOR HS. WILL CONTINUE TO MONITOR THE PATIENT.
--- NOTE | 2018-11-17 21:29 | Progress Note ---
DATE: 11/17/2018 Cardiology Progress Note SUBJECTIVE: No major events overnight. Diuresing well. OBJECTIVE: VITAL SIGNS: Temperature afebrile, pulse 80, respiratory rate 16, blood pressure 118/58, saturating 96% on 15 L nasal cannula. GENERAL: Obese man. No acute distress. CARDIOVASCULAR: Regular rate and rhythm, 2/6 systolic murmur. LUNGS: Clear to auscultation. Decreased breath sounds at the bases. ABDOMEN: Soft and nontender. EXTREMITIES: 2+ pitting edema. CARDIOVASCULAR MEDICATIONS: Reviewed. LABORATORY DATA: Reviewed. TELEMETRY DATA: Shows ventricular pacing. ASSESSMENT: 1. Acute hypoxemic respiratory failure. 2. Tdugh-ii-imfdnsu diastolic heart failure. 3. Severe pulmonary hypertension. 4. History of deep vein thrombosis and pulmonary embolism, on Coumadin. 5. Status post permanent pacemaker placement. 6. Obstructive sleep apnea. 7. Remote history of cardiac surgery. 8. Down syndrome. RECOMMENDATIONS: Continue diuretics as renal function tolerates. Wean oxygen as tolerated. Okay to transfer to the floor on telemetry. Thank you for this consult. We will continue to follow. MD ROSA ISELA Alvarez/JARED /[id number]
[2018-11-18] VITALS (8 sets, daily range): BP systolic 111–154; BP diastolic 53–67
[2018-11-18 06:31] LABS: ANION GAP 12.3 mmol/L (8-16); BLOOD UREA NITROGEN 11 mg/dL (7-26); BUN/CREATININE RATIO 15 (6-25); CALCIUM 9.1 mg/dL (8.4-10.2); CARBON DIOXIDE 39 mmol/L (22-29); CHLORIDE 91 mmol/L (98-107); CREATININE, SERUM 0.75 mg/dL (0.72-1.25); EST GLOMERULAR FILTRATION RATE > 60 ML/MIN (60-); GLUCOSE 131 mg/dL (74-118); POTASSIUM 3.3 mmol/L (3.5-5.1); SODIUM 139 mmol/L (136-145)
--- NOTE | 2018-11-18 07:00 | NUR ---
RECEIVED BEDSIDE SHIFT REPORT FROM THE STATISTICS TEACHER RN. PT DENIES NEEDS AT THIS TIME.
[2018-11-18] MEDS: INSULIN LISPRO 100 UNIT/1 ML 3ML VIAL SQ SCH ×4 (07:30→20:42)
[2018-11-18] MEDS: FUROSEMIDE INJ 10 MG/ML 4 ML VIAL IV SCH ×3 (09:37→20:42)
[2018-11-18] MEDS: NYSTATIN 100,000 UNITS/GM CRM 30GM TUBE TOP SCH ×2 (09:37→17:30)
[2018-11-18] MEDS: SPIRONOLACTONE 25 MG TAB PO SCH (09:37)
[2018-11-18] MEDS ORDERED: POTASSIUM CHLORIDE 20 MEQ TAB CR PO ONE (12:22)
[2018-11-18] MEDS: ALBUTEROL SULF 0.083% NEB SOLN 3 ML NEB NEB PRN ×2 (13:55→19:30)
--- NOTE | 2018-11-18 14:37 | Progress Note ---
DATE: Internal Medicine Progress Note SUBJECTIVE: The patient is doing well. No significant complaint. PHYSICAL EXAMINATION: HEART: Shows regular rhythm. Normal S1, S2 sounds. LUNGS: Clear bilaterally. ABDOMEN: Soft. EXTREMITIES: Show no evidence of cyanosis or trauma. VITAL SIGNS: Blood pressure 111/67, temperature 97.1, heart rate 69 per minute, respiratory rate 20 per minute, oxygen saturation 92%. LABORATORY STUDIES: BMP; sodium 139, potassium 3.3, chloride 91, CO2 of 39, BUN 11, creatinine 0.75, glucose 131. CBC; white count 9.26, hemoglobin 13.5, hematocrit 44.1, platelet count 202,000. PT 29.2, INR of 2.67, PTT 44.6. AST 23, ALT 18, total bilirubin 1.2, alkaline phosphatase 151. FINAL IMPRESSION: 1. Acute congestive heart failure, most likely systolic in nature. 2. Hypokalemia. 3. Down syndrome. 4. Status post respiratory failure. 5. Coronary artery disease. PLAN OF TREATMENT: Continue furosemide 60 mg IV three times a day, aldactone 25 mg daily. We are going to add potassium 40 mEq right now and then 20 mEq daily. Continue monitoring blood sugar a.c. and at bedtime. Continue statins twice a day. We are going to check BMP and magnesium levels. MD PAZ Nieves/JARED /[id number]
--- NOTE | 2018-11-18 18:35 | NUR ---
REMOVED WALLACE PER THE ORDER. PT TOLERATED WELL. PT DENIED FURTHER NEEDS.
--- NOTE | 2018-11-18 19:00 | NUR ---
BEDSIDE SHIFT REPORT GIVEN TO THE SUPERVISOR FITTING RN. PT DENIED FURTHER NEEDS.
--- NOTE | 2018-11-18 20:23 | Progress Note ---
DATE: 11/18/2018 Cardiology Progress Note SUBJECTIVE: No major events overnight. Got transfer out of the ICU. OBJECTIVE: VITAL SIGNS: Temperature afebrile, pulse 65, respiratory rate 18, blood pressure 154/67, and saturating 98% on nasal cannula. GENERAL: Obese man, in no acute distress. CARDIOVASCULAR: Regular rate and rhythm. A 2/6 systolic murmur at the base. LUNGS: Clear to auscultation. Decreased breath sounds at the bases. ABDOMEN: Soft, nontender, mildly distended. EXTREMITIES: 2+ pitting edema. CARDIOVASCULAR MEDICATIONS: Reviewed. LABORATORY DATA: Reviewed. TELEMETRY DATA: Reviewed. Shows ventricular pacing. ASSESSMENT AND PLAN: 1. Acute hypoxemic respiratory failure. 2. Gpdhu-db-pnqdtyw diastolic heart failure. 3. Severe pulmonary hypertension. 4. History of deep venous thrombosis and pulmonary embolism, on Coumadin. 5. Status post permanent pacemaker placement. 6. Obstructive sleep apnea. 7. Remote history of cardiac surgery. 8. Down syndrome. RECOMMENDATIONS: Continue diuresing as renal function tolerates. Continue cardiovascular medications otherwise. Please check another INR tomorrow. Thank you for this consult. We will continue to follow. MD ROSA ISELA Alvarez/JARED /[id number]
--- NOTE | 2018-11-18 21:30 | NUR ---
pt voided 150cc into urinal of dark yellow clear urine
[2018-11-19] VITALS (7 sets, daily range): BP systolic 101–123; BP diastolic 52–59
[2018-11-19 05:44] LABS: ANION GAP 11.4 mmol/L (8-16); BLOOD UREA NITROGEN 11 mg/dL (7-26); BUN/CREATININE RATIO 14 (6-25); CALCIUM 9.2 mg/dL (8.4-10.2); CARBON DIOXIDE 39 mmol/L (22-29); CHLORIDE 93 mmol/L (98-107); CREATININE, SERUM 0.77 mg/dL (0.72-1.25); EST GLOMERULAR FILTRATION RATE > 60 ML/MIN (60-); GLUCOSE 135 mg/dL (74-118); POTASSIUM 3.4 mmol/L (3.5-5.1); SODIUM 140 mmol/L (136-145)
[2018-11-19] MEDS: INSULIN LISPRO 100 UNIT/1 ML 3ML VIAL SQ SCH ×4 (07:30→21:00)
[2018-11-19] MEDS ORDERED: ACETAMINOPHEN 325 MG TAB PO PRN (07:45)
--- NOTE | 2018-11-19 08:00 | NUR ---
Pt in bed with eyes open. Aox3 and able to verbalize needs. Speech is slurred but that is baseline. Denies SOB at this time. Continues on O2 15L/NC.
[2018-11-19] MEDS: ASPIRIN 325 MG TAB PO SCH (08:04)
[2018-11-19] MEDS: FUROSEMIDE INJ 10 MG/ML 4 ML VIAL IV SCH ×3 (08:04→21:44)
[2018-11-19] MEDS: SPIRONOLACTONE 25 MG TAB PO SCH (08:04)
[2018-11-19] MEDS: NYSTATIN 100,000 UNITS/GM CRM 30GM TUBE TOP SCH ×2 (08:05→16:44)
[2018-11-19] MEDS: POTASSIUM CHLORIDE 20 MEQ TAB CR PO SCH (08:05)
--- NOTE | 2018-11-19 11:12 | NUR ---
EDUCATED ABOUT IMM, SIGNED, FILED IN CHART, WITH COPY LEFT WITH FAMILY AT BEDSIDE.
--- NOTE | 2018-11-19 11:18 | NUR ---
WOUND CARE NURSE INITIAL CONSULTATION. 52 YEAR OLD MALE ADMITTED TO [facility] WITH DX OF ACUTE DYSPNEA WITH HYPOXIA. HEAD TO TOE SKIN ASSESSMENT PERFORMED TODAY. PT PRESENTS WITH YEAST INFECTION TO BILATERAL GROIN AND SCROTUM WELL WITH BLANCHABLE REDNESS TO SACRUM. PT IS ABLE TO REPOSITION SELF. NO OTHER AREAS OF CONCERN NOTED AT THIS TIME. LABS: WBC: 9.26 ALB: 3.0 GLUCOSE: 135 RECOMMENDATIONS: WASH BILATERAL GROIN AND SCROTUM WITH SOAP AND WATER, PAT DRY AND CONTINUE APPLYING NYSTATIN CREAM BID. MONITOR SACRUM DAILY. CONTINUE WITH ALTERNATING LOW AIR LOSS MATTRESS PROVIDE BILATERAL HEEL PROTECTORS ENCOURAGE PT TO REPOSITION EVERY [address] PRN. THAN[address] PILLAI FOR THIS CONSULTATION. Addendum: 11/19/18 at 1127 by Usha Sims RN Amended: Links added.
--- NOTE | 2018-11-19 18:39 | NUR ---
Pt in chair at this time. Aox4 and able to verbalize needs. Pt is able to verbalize but it difficult to understand at time. Pt is on 15L high flow oxyge. respiratory tried to ween his oxygen down. Oxygen saturation was 96-97% for a while but his oxygen saturation drop as low as 69%. After oxygen increased back to 15L saturation back in high 90s. Physician notified and wants respiratory to continue to try to ween his oxygen tonight.
--- NOTE | 2018-11-19 19:25 | NUR ---
Patient received sitting in recliner chair. AAO x 2. Patient had no complaints of pain. No signs of respiratory distress. Telemetry box in place. Fall precautions implemented. Patient instructed to call for assistance when needed. Call light within reach.
[2018-11-19] MEDS: ALBUTEROL SULF 0.083% NEB SOLN 3 ML NEB NEB PRN (19:47)
[2018-11-20] VITALS: BP 108/49
[2018-11-20 04:00] VITALS: BP 138/62
--- NOTE | 2018-11-20 06:50 | NUR ---
Patient resting comfortably. Shift report given to oncoming nurse for continuity of care.
[2018-11-20] MEDS: ALBUTEROL SULF 0.083% NEB SOLN 3 ML NEB NEB PRN (07:00)
[2018-11-20] MEDS: INSULIN LISPRO 100 UNIT/1 ML 3ML VIAL SQ SCH ×2 (07:30→12:00)
[2018-11-20 07:53] VITALS: BP 130/58
[2018-11-20 07:56] VITALS: BP 130/58
[2018-11-20] MEDS: FUROSEMIDE INJ 10 MG/ML 4 ML VIAL IV SCH (08:20)
[2018-11-20] MEDS: ASPIRIN 325 MG TAB PO SCH (08:20)
[2018-11-20] MEDS: SPIRONOLACTONE 25 MG TAB PO SCH (08:20)
[2018-11-20] MEDS: POTASSIUM CHLORIDE 20 MEQ TAB CR PO SCH (08:21)
[2018-11-20] MEDS: NYSTATIN 100,000 UNITS/GM CRM 30GM TUBE TOP SCH (08:21)
[2018-11-20 11:49] VITALS: BP 121/54
[2018-11-20 16:17] VITALS: BP 116/57
--- NOTE | 2018-11-20 16:42 | NUR ---
Pt discharge at this time to home with home health. Pt is going home with oxygen which he already had prior to coming to the hospital. Family and pt verbalized understanding of discharge instructions and follow up appt. O s/s of acute distress noted at time of discharge.
--- NOTE | 2018-11-21 11:13 | NUR ---
Received phone call from Juany with [facility]. She states they are unable to accept pt since he is out of their coverage area. CM called [facility] who stated they are not accepting pt's insurance at this time. CM called and spoke with [facility] and they are able to accept pt's insurance. CM informed of referral and asked that intake call and let CM know if they can accept pt. Referral was faxed
--- NOTE | 2018-11-21 15:53 | NUR ---
Received call from Jannette with intake at [facility]. She stated they will be accepting pt.
== END 2018-11-20 16:42 | disposition home or self-care (01) | DRG 291 ==
LOC: ER 14:02 → ERHOLD 17:01 → ICU 18:22 → MED/SURG2 11-17 20:39
DX: I11.0 Hypertensive heart disease with heart failure (principal); J96.01 Acute respiratory failure with hypoxia; Z68.41 Body mass index [BMI] 40.0-44.9, adult; I50.33 Acute on chronic diastolic (congestive) heart failure; Z86.718 Personal history of other venous thrombosis and embolism; Z79.01 Long term (current) use of anticoagulants; Z86.711 Personal history of pulmonary embolism; G47.33 Obstructive sleep apnea (adult) (pediatric); Q90.9 Down syndrome, unspecified; I27.20 Pulmonary hypertension, unspecified; Z95.0 Presence of cardiac pacemaker; E66.01 Morbid (severe) obesity due to excess calories; I25.10 Atherosclerotic heart disease of native coronary artery without angina pectoris; E87.6 Hypokalemia
CPT/HCPCS: 36415; 36600; 71045; 80048; 80053; 82550; 82553; 82805; 82947; 82948; 83605; 83735; 83880; 84484; 85025; 85610; 85730; 93005; 94640; 94660; 96372; 96374; 97139; 99285; J1940

== ENCOUNTER 2018-12-21 14:00 | Inpatient (IN) | payer MEDICARE ==
[~2018-12-21] VITALS: Ht 162.6 cm; Wt 124.9 kg
--- OUTSIDE RECORDS SUMMARY | 2018-12-21 14:03 | XMS REPORT | Clinical Summary ---
Author Author [employer] [employer] Address Unknown Phone Unavailable Care Team Providers Care Equipment Sterilizer Name Role Phone Allyson Robles MD PCP [...] INFLUENZA VACCINE 01/03/2019 Results Not on fileafter 12/20/2017 Insurance Type Payer Benefit Subscriber ID Effective Phone Address Plan / Dates Group [facility] MEDICARE AARP xxxxxxxxx 2016-P MEDICARE resent COMPLETE [facility] Advance Directives Patient has advance care planning documents on file. For more information, yvonne bowers contact: Fidel García [address] [place] [address]
--- OUTSIDE RECORDS SUMMARY | 2018-12-21 14:04 | XMS REPORT | Continuity of Care Document ---
Author Author [employer] Address Unknown Phone Unavailable Care Team Providers Care Mortgage Loan Specialist Name Role Phone XIFIN Information Shut Down Unavailable Unavailable Problems Problem Status Onset Date Classification Date Reported Comments Source DVT Active 02/12/2015 Problem 11/20/2018 [facility] Bronchospasm Active 07/29/2014 Problem 11/20/2018 [facility] Down's syndrome Active 07/29/2014 Problem 11/20/2018 [facility] Pneumonia Active 07/29/2014 Problem 11/20/2018 [facility] CHF exacerbation Active Problem 11/20/2018 [facility] Pulmonary edema cardiac cause Active Problem 11/20/2018 [facility] Respiratory failure with hypoxia Active Problem 11/20/2018 [facility] Medications Medication Details Route Status Patient Instructions Ordering Provider Order Date Source Levothyroxine Sodium 75 Mcg Tablet, 75 Mcg Oral Daily Active 08/09/2018 [facility] Warfarin Sodium 6 Mg Tablet, 1 Tab Oral Daily Active 01/08/2018 [facility] Levothyroxine Sodium 75 Mcg Tablet, 1 Tab Oral Rt Daily Active 02/13/2015 [facility] Simvastatin 40 Mg Tablet, 40 Mg Oral Daily for Cholesterol Active 02/13/2015 [facility] Simvastatin 40 Mg Tablet, 40 Mg Oral Daily for Cholesterol Active 02/13/2015 [facility] Potassium Chloride (K Dur*) 10 Meq Tabcr, 10 Meq Oral Daily At 1700 Active Pillai 08/04/2014 [facility] Potassium Chloride (K Dur*) 10 Meq Tabcr, 10 Meq Oral Daily At 1700 Active Pillai 08/04/2014 [facility] Allopurinol 100 Mg Tablet Daily Active [facility] Ergocalciferol (Vitamin D2) (Ergocalciferol) 8,000 Unit/1 Ml Drops Once Active [facility] Furosemide (Lasix) 40 Mg Tablet Daily Active [facility] Glimepiride 2 Mg Tablet Daily Active [facility] Levothyroxine Sodium 75 Mcg Tablet Daily Active [facility] Metformin Hcl 500 Mg Tablet Every Morning Active [facility] Metformin Hcl 500 Mg Tablet Bedtime Active [facility] Metoprolol Succinate 25 Mg Tab.er.24h Daily Active [facility] Potassium Chloride (Klor-Con 10) 10 Meq Tablet.er Twice A Day Active [facility] Simvastatin 40 Mg Tablet Bedtime Active [facility] Warfarin Sodium 1 Mg Tablet Daily Active [facility] Allopurinol 100 Mg Tablet Daily Active [facility] Ergocalciferol (Vitamin D2) (Ergocalciferol) 8,000 Unit/1 Ml Drops Once Active [facility] Furosemide (Lasix) 40 Mg Tablet Three Times A Day Active [facility] Glimepiride 2 Mg Tablet Daily Active [facility] Levothyroxine Sodium 75 Mcg Tablet Daily Active [facility] Metoprolol Succinate 25 Mg Tab.er.24h Daily Active [facility] Potassium Chloride (Klor-Con 10) 10 Meq Tablet.er Twice A Day Active [facility] Warfarin Sodium 1 Mg Tablet Daily Active [facility] Allergies, Adverse Reactions, Alerts Substance Category Reaction Severity Reaction type Status Date Reported Comments Source Vancomycin Unknown Allergy to Substance Active 08/03/2018 [facility] Cefdinir ITCHING Mild Allergy to Substance Active 11/14/2018 [facility] Immunizations No Data Provided for This Section Results Order Name Results Value Reference Range Date Interpretation Comments Source Serum or plasma sodium measurement (moles/volume) 140 136 - 145 11/19/2018 [facility] Serum or plasma potassium measurement (moles/volume) 3.4 3.5 - 5.1 11/19/2018 [facility] Serum or plasma chloride measurement (moles/volume) 93 98 - 107 11/19/2018 [facility] Serum or plasma carbon dioxide, total measurement (moles/volume) 39 22 - 29 11/19/2018 [facility] Serum or plasma anion gap 11.4 8 - 16 11/19/2018 [facility] Serum or plasma urea nitrogen measurement (mass/volume) 11 7 - 26 11/19/2018 [facility] Serum or plasma creatinine measurement (mass/volume) 0.77 0.72 - 1.25 11/19/2018 [facility] Serum or plasma urea nitrogen/creatinine mass ratio 14 6 - 25 11/19/2018 [facility] Estimated glomerular filtration rate (GFR) determination > 60 60 11/19/2018 [facility] Glucose measurement 135 74 - 118 11/19/2018 [facility] Serum or plasma calcium measurement (mass/volume) 9.2 8.4 - 10.2 11/19/2018 [facility] Capillary blood glucose measurement by glucometer (mass/volume) 232 70 - 120 11/18/2018 [facility] Serum or plasma magnesium measurement (mass/volume) 2.2 1.3 - 2.1 11/18/2018 [facility] Blood leukocytes automated count (number/volume) 9.26 4.8 - 10.8 11/17/2018 [facility] Blood erythrocytes automated count (number/volume) 4.55 4.3 - 5.7 11/17/2018 [facility] Blood hemoglobin measurement (moles/volume) 13.5 14.0 - 18.0 11/17/2018 [facility] Automated blood hematocrit (volume fraction) 44.1 38.2 - 49.6 11/17/2018 [facility] Automated erythrocyte mean corpuscular volume 96.9 81 - 99 11/17/2018 [facility] Automated erythrocyte mean corpuscular hemoglobin (mass per erythrocyte) 29.7 28 - 32 11/17/2018 [facility] Automated erythrocyte mean corpuscular hemoglobin concentration measurement (mass/volume) 30.6 31 - 35 11/17/2018 [facility] RDW BldCo-Rto 19.5 11.7 - 14.4 11/17/2018 [facility] Automated blood platelet count (count/volume) 202 140 - 360 11/17/2018 [facility] Automated blood segmented neutrophil count as percentage of total leukocytes 82.1 38.7 - 80.0 11/17/2018 [facility] Automated blood lymphocyte count as percentage ot total leukocytes 6.6 18.0 - 39.1 11/17/2018 [facility] Automated blood monocyte count as percentage of total leukocytes 9.0 4.4 - 11.3 11/17/2018 [facility] Automated blood eosinophil count as percentage of total leukocytes 1.3 0.0 - 6.0 11/17/2018 [facility] Automated blood basophil count as percentage of total leukocytes 0.6 0.0 - 1.0 11/17/2018 [facility] IM GRANULOCYTES % 0.4 0.0 - 1.0 11/17/2018 [facility] Automated blood neutrophil count 7.6 2.1 - 6.9 11/17/2018 [facility] Blood lymphocytes count (number/volume) 0.6 1.0 - 3.2 11/17/2018 [facility] Blood monocytes automated count (number/volume) 0.8 0.2 - 0.8 11/17/2018 [facility] Automated blood eosinophil count 0.1 0.0 - 0.4 11/17/2018 [facility] Automated blood basophil count (count/volume) 0.1 0.0 - 0.1 11/17/2018 [facility] Absolute Immature Granulocyte (auto 0.04 0 - 0.1 11/17/2018 [facility] Serum or plasma creatine kinase measurement (enzymatic activity/volume) < 7 30 - 200 11/15/2018 [facility] Serum or plasma creatine kinase MB measurement (mass/volume) 1.30 0 - 5.0 11/15/2018 [facility] Troponin I measurement by highly sensitive enzyme immunoassay 0.031 0 - 0.300 11/15/2018 [facility] Venous Blood pH 7.388 7.35 - 7.38 11/14/2018 [facility] Venous Blood Partial Pressure CO2 55.5 44 - 48 11/14/2018 [facility] Venous Blood Partial Pressure O2 46 40 - 41 11/14/2018 [facility] Venous Blood HCO3 33.5 21 - 22 11/14/2018 [facility] Venous Blood Total Carbon Dioxide 35 11/14/2018 [facility] Venous Blood Base Excess 8 11/14/2018 [facility] Venous Blood Oxygen Saturation 80 11/14/2018 [facility] FiO2 32 11/14/2018 [facility] Lactic Acid Level 17.6 4.5 - 19.8 11/14/2018 [facility] BNP Bld-mCnc 193.4 0 - 100 11/14/2018 [facility] Prothrombin time (PT) in platelet poor plasma by coagulation assay 29.2 11.9 - 14.5 11/14/2018 [facility] INR in Platelet poor plasma by Coagulation assay 2.67 11/14/2018 [facility] Activated partial thromboplastin time (aPTT) in platelet poor plasma bycoagulation assay 44.6 23.8 - 35.5 11/14/2018 [facility] Serum or plasma total bilirubin measurement (mass/volume) 1.2 0.2 - 1.2 11/14/2018 [facility] Aspartate Amino Transf (AST/SGOT) 23 5 - 34 11/14/2018 [facility] Serum or plasma alanine aminotransferase measurement (enzymatic activity/volume) 18 0 - 55 11/14/2018 [facility] Serum or plasma protein measurement (mass/volume) 7.4 6.5 - 8.1 11/14/2018 [facility] Serum or plasma albumin measurement (mass/volume) 3.0 3.5 - 5.0 11/14/2018 [facility] Plasma globulin measurement (mass/volume) 4.4 2.3 - 3.5 11/14/2018 [facility] Serum or plasma albumin/globulin mass ratio 0.7 0.8 - 2.0 11/14/2018 [facility] Serum or plasma alkaline phosphatase measurement (enzymatic activity/volume) 151 40 - 150 11/14/2018 [facility] Prothrombin time (PT) in platelet poor plasma by coagulation assay 27.1 11.9 - 14.5 08/09/2018 [facility] INR in Platelet poor plasma by Coagulation assay 2.43 08/09/2018 [facility] Blood leukocytes automated count (number/volume) 7.20 4.8 - 10.8 08/09/2018 [facility] Blood erythrocytes automated count (number/volume) 4.82 4.3 - 5.7 08/09/2018 [facility] Blood hemoglobin measurement (moles/volume) 14.5 14.0 - 18.0 08/09/2018 [facility] Automated blood hematocrit (volume fraction) 46.2 38.2 - 49.6 08/09/2018 [facility] Automated erythrocyte mean corpuscular volume 95.9 81 - 99 08/09/2018 [facility] Automated erythrocyte mean corpuscular hemoglobin (mass per erythrocyte) 30.1 28 - 32 08/09/2018 [facility] Automated erythrocyte mean corpuscular hemoglobin concentration measurement (mass/volume) 31.4 31 - 35 08/09/2018 [facility] RDW BldCo-Rto 19.2 11.7 - 14.4 08/09/2018 [facility] Automated blood platelet count (count/volume) 219 140 - 360 08/09/2018 [facility] Automated blood segmented neutrophil count as percentage of total leukocytes 76.1 38.7 - 80.0 08/09/2018 [facility] Automated blood lymphocyte count as percentage ot total leukocytes 10.0 18.0 - 39.1 08/09/2018 [facility] Automated blood monocyte count as percentage of total leukocytes 10.0 4.4 - 11.3 08/09/2018 [facility] Automated blood eosinophil count as percentage of total leukocytes 2.5 0.0 - 6.0 08/09/2018 [facility] Automated blood basophil count as percentage of total leukocytes 0.8 0.0 - 1.0 08/09/2018 [facility] IM GRANULOCYTES % 0.6 0.0 - 1.0 08/09/2018 [facility] Automated blood neutrophil count 5.5 2.1 - 6.9 08/09/2018 [facility] Blood lymphocytes count (number/volume) 0.7 1.0 - 3.2 08/09/2018 [facility] Blood monocytes automated count (number/volume) 0.7 0.2 - 0.8 08/09/2018 [facility] Automated blood eosinophil count 0.2 0.0 - 0.4 08/09/2018 [facility] Automated blood basophil count (count/volume) 0.1 0.0 - 0.1 08/09/2018 [facility] Absolute Immature Granulocyte (auto 0.04 0 - 0.1 08/09/2018 [facility] Serum or plasma sodium measurement (moles/volume) 134 136 - 145 08/09/2018 [facility] Serum or plasma potassium measurement (moles/volume) 3.7 3.5 - 5.1 08/09/2018 [facility] Serum or plasma chloride measurement (moles/volume) 93 98 - 107 08/09/2018 [facility] Serum or plasma carbon dioxide, total measurement (moles/volume) 32 22 - 29 08/09/2018 [facility] Serum or plasma anion gap 12.7 8 - 16 08/09/2018 [facility] Serum or plasma urea nitrogen measurement (mass/volume) 14 7 - 26 08/09/2018 [facility] Serum or plasma creatinine measurement (mass/volume) 0.84 0.72 - 1.25 08/09/2018 [facility] Serum or plasma urea nitrogen/creatinine mass ratio 17 6 - 25 08/09/2018 [facility] Estimated glomerular filtration rate (GFR) determination > 60 60 08/09/2018 [facility] Glucose measurement 114 74 - 118 08/09/2018 [facility] Serum or plasma calcium measurement (mass/volume) 9.2 8.4 - 10.2 08/09/2018 [facility] Serum or plasma magnesium measurement (mass/volume) 2.0 1.3 - 2.1 08/09/2018 [facility] Capillary blood glucose measurement by glucometer (mass/volume) 117 70 - 120 08/07/2018 [facility] BNP Bld-mCnc 44.3 0 - 100 08/07/2018 [facility] Serum or plasma creatine kinase measurement (enzymatic activity/volume) 13 30 - 200 08/04/2018 [facility] Serum or plasma creatine kinase MB measurement (mass/volume) 0.60 0 - 5.0 08/04/2018 [facility] Troponin I measurement by highly sensitive enzyme immunoassay 0.022 0 - 0.300 08/04/2018 [facility] Serum or plasma total bilirubin measurement (mass/volume) 0.9 0.2 - 1.2 08/03/2018 [facility] Aspartate Amino Transf (AST/SGOT) 23 5 - 34 08/03/2018 [facility] Serum or plasma alanine aminotransferase measurement (enzymatic activity/volume) 19 0 - 55 08/03/2018 [facility] Serum or plasma protein measurement (mass/volume) 7.3 6.5 - 8.1 08/03/2018 [facility] Serum or plasma albumin measurement (mass/volume) 3.0 3.5 - 5.0 08/03/2018 [facility] Plasma globulin measurement (mass/volume) 4.3 2.3 - 3.5 08/03/2018 [facility] Serum or plasma albumin/globulin mass ratio 0.7 0.8 - 2.0 08/03/2018 [facility] Serum or plasma alkaline phosphatase measurement (enzymatic activity/volume) 103 40 - 150 08/03/2018 [facility] Arterial blood pH measurement 7.42 7.31 - 7.41 08/03/2018 [facility] pCO2 BldA 47 41 - 51 08/03/2018 [facility] pCO2 BldA 60 80 - 105 08/03/2018 [facility] Arterial blood bicarbonate measurement (moles/volume) 31 23 - 28 08/03/2018 [facility] Arterial blood base excess by calculation 6.0 -2 - 3 - 2 08/03/2018 [facility] Arterial blood oxygen saturation measurement 91.0 95 - 98 08/03/2018 [facility] FiO2 40 08/03/2018 [facility] Arterial blood pH measurement 7.42 7.31 - 7.41 08/03/2018 [facility] pCO2 BldA 47 41 - 51 08/03/2018 [facility] pCO2 BldA 60 80 - 105 08/03/2018 [facility] Arterial blood bicarbonate measurement (moles/volume) 31 23 - 28 08/03/2018 [facility] Arterial blood base excess by calculation 6.0 -2 - 3 - 2 08/03/2018 [facility] Arterial blood oxygen saturation measurement 91.0 95 - 98 08/03/2018 [facility] Capillary blood glucose measurement by glucometer (mass/volume) Capillary blood glucose measurement by glucometer (mass/volume) 198 70 - 120 01/08/2018 [facility] Automated blood basophil count (count/volume) Automated blood basophil count (count/volume) 0.1 0.0 - 0.1 01/08/2018 [facility] Automated blood basophil count as percentage of total leukocytes Automated blood basophil count as percentage of total leukocytes 0.9 0.0 - 1.0 01/08/2018 [facility] Automated blood eosinophil count Automated blood eosinophil count 0.1 0.0 - 0.4 01/08/2018 [facility] Automated blood eosinophil count as percentage of total leukocytes Automated blood eosinophil count as percentage of total leukocytes 1.1 0.0 - 6.0 01/08/2018 [facility] Automated blood hematocrit (volume fraction) Automated blood hematocrit (volume fraction) 46.0 38.2 - 49.6 01/08/2018 [facility] Automated blood lymphocyte count as percentage ot total leukocytes Automated blood lymphocyte count as percentage ot total leukocytes 7.1 18.0 - 39.1 01/08/2018 [facility] Automated blood monocyte count as percentage of total leukocytes Automated blood monocyte count as percentage of total leukocytes 13.5 4.4 - 11.3 01/08/2018 [facility] Automated blood neutrophil count Automated blood neutrophil count 6.8 2.1 - 6.9 01/08/2018 [facility] Automated blood platelet count (count/volume) Automated blood platelet count (count/volume) 262 140 - 360 01/08/2018 [facility] Automated blood segmented neutrophil count as percentage of total leukocytes Automated blood segmented neutrophil count as percentage of total leukocytes 76.8 38.7 - 80.0 01/08/2018 [facility] Automated erythrocyte mean corpuscular hemoglobin (mass per erythrocyte) Automated erythrocyte mean corpuscular hemoglobin (mass per erythrocyte) 30.5 28 - 32 01/08/2018 [facility] Automated erythrocyte mean corpuscular hemoglobin concentration measurement (mass/volume) Automated erythrocyte mean corpuscular hemoglobin concentration measurement (mass/volume) 32.0 31 - 35 01/08/2018 [facility] Automated erythrocyte mean corpuscular volume Automated erythrocyte mean corpuscular volume 95.4 81 - 99 01/08/2018 [facility] Blood erythrocytes automated count (number/volume) Blood erythrocytes automated count (number/volume) 4.82 4.3 - 5.7 01/08/2018 [facility] Blood hemoglobin measurement (moles/volume) Blood hemoglobin measurement (moles/volume) 14.7 14.0 - 18.0 01/08/2018 [facility] Blood leukocytes automated count (number/volume) Blood leukocytes automated count (number/volume) 8.86 4.8 - 10.8 01/08/2018 [facility] Blood lymphocytes count (number/volume) Blood lymphocytes count (number/volume) 0.6 1.0 - 3.2 01/08/2018 [facility] Blood monocytes automated count (number/volume) Blood monocytes automated count (number/volume) 1.2 0.2 - 0.8 01/08/2018 [facility] Red Cell Distribution Width 18.2 11.7 - 14.4 01/08/2018 [facility] IM GRANULOCYTES % 0.6 0.0 - 1.0 01/08/2018 [facility] Absolute Immature Granulocyte (auto 0.05 0 - 0.1 01/08/2018 [facility] B-Type Natriuretic Peptide 49.3 0 - 100 01/08/2018 [facility] Estimated glomerular filtration rate (GFR) determination Estimated glomerular filtration rate (GFR) determination >60 60 01/08/2018 [facility] Glucose measurement Glucose measurement 164 74 - 118 01/08/2018 [facility] Plasma globulin measurement (mass/volume) Plasma globulin measurement (mass/volume) 4.8 2.3 - 3.5 01/08/2018 [facility] Serum or plasma alanine aminotransferase measurement (enzymatic activity/volume) Serum or plasma alanine aminotransferase measurement (enzymatic activity/volume) 20 0 - 55 01/08/2018 [facility] Serum or plasma albumin measurement (mass/volume) Serum or plasma albumin measurement (mass/volume) 2.4 3.5 - 5.0 01/08/2018 [facility] Serum or plasma albumin/globulin mass ratio Serum or plasma albumin/globulin mass ratio 0.5 0.8 - 2.0 01/08/2018 [facility] Serum or plasma alkaline phosphatase measurement (enzymatic activity/volume) Serum or plasma alkaline phosphatase measurement (enzymatic activity/volume) 136 40 - 150 01/08/2018 [facility] Serum or plasma anion gap Serum or plasma anion gap 13.9 8 - 16 01/08/2018 [facility] Serum or plasma calcium measurement (mass/volume) Serum or plasma calcium measurement (mass/volume) 9.7 8.4 - 10.2 01/08/2018 [facility] Serum or plasma carbon dioxide, total measurement (moles/volume) Serum or plasma carbon dioxide, total measurement (moles/volume) 32 22 - 29 01/08/2018 [facility] Serum or plasma chloride measurement (moles/volume) Serum or plasma chloride measurement (moles/volume) 93 98 - 107 01/08/2018 [facility] Serum or plasma creatinine measurement (mass/volume) Serum or plasma creatinine measurement (mass/volume) 0.90 0.72 - 1.25 01/08/2018 [facility] Serum or plasma potassium measurement (moles/volume) Serum or plasma potassium measurement (moles/volume) 3.9 3.5 - 5.1 01/08/2018 [facility] Serum or plasma protein measurement (mass/volume) Serum or plasma protein measurement (mass/volume) 7.2 6.5 - 8.1 01/08/2018 [facility] Serum or plasma sodium measurement (moles/volume) Serum or plasma sodium measurement (moles/volume) 135 136 - 145 01/08/2018 [facility] Serum or plasma total bilirubin measurement (mass/volume) Serum or plasma total bilirubin measurement (mass/volume) 1.8 0.2 - 1.2 01/08/2018 [facility] Serum or plasma urea nitrogen measurement (mass/volume) Serum or plasma urea nitrogen measurement (mass/volume) 22 7 - 26 01/08/2018 [facility] Serum or plasma urea nitrogen/creatinine mass ratio Serum or plasma urea nitrogen/creatinine mass ratio 24 6 - 25 01/08/2018 [facility] Aspartate Amino Transf (AST/SGOT) 26 5 - 34 01/08/2018 [facility] INR in Platelet poor plasma by Coagulation assay INR in Platelet poor plasma by Coagulation assay 2.22 01/07/2018 [facility] Prothrombin time (PT) in platelet poor plasma by coagulation assay Prothrombin time (PT) in platelet poor plasma by coagulation assay 23.1 11.9 - 14.5 01/07/2018 [facility] Urine color determination YELLOW YELLOW 12/30/2017 [facility] Urine clarity CLEAR CLEAR 12/30/2017 [facility] Specific gravity of Urine by Test strip 1.005 1.010 - 1.025 12/30/2017 [facility] Urine pH measurement by automated test strip 6 5 - 7 12/30/2017 [facility] Urine leukocyte esterase detection by dipstick NEGATIVE NEGATIVE 12/30/2017 [facility] Urine nitrite detection NEGATIVE NEGATIVE 12/30/2017 [facility] Urine protein measurement by test strip (mass/volume) NEGATIVE NEGATIVE 12/30/2017 [facility] Urine glucose detection NEGATIVE NEGATIVE 12/30/2017 [facility] Urine ketones detection by automated test strip NEGATIVE NEGATIVE 12/30/2017 [facility] Urine urobilinogen measurement by test strip (mass/volume) 0.2 0.2 - 1 12/30/2017 [facility] Urine total bilirubin measurement (mass/volume) NEGATIVE NEGATIVE 12/30/2017 [facility] Urine erythrocytes detection 1+ NEGATIVE 12/30/2017 [facility] Automated urine sediment leukocyte count by microscopy (number/high power field) 0-5 0 - 5 12/30/2017 [facility] Erythrocytes detection in urine sediment by light microscopy 6-10 0 - 5 12/30/2017 [facility] Bacteria detection in urine sediment by light microscopy NONE NONE 12/30/2017 [facility] Epithelial cells detection in urine sediment by light microscopy FEW NONE 12/30/2017 [facility] Automated urine sediment leukocyte count by microscopy (number/high power field) Automated urine sediment leukocyte count by microscopy (number/high power field) <5 0 - 5 12/30/2017 [facility] Bacteria detection in urine sediment by light microscopy Bacteria detection in urine sediment by light microscopy NONE NONE 12/30/2017 [facility] Epithelial cells detection in urine sediment by light microscopy Epithelial cells detection in urine sediment by light microscopy FEW NONE 12/30/2017 [facility] Erythrocytes detection in urine sediment by light microscopy Erythrocytes detection in urine sediment by light microscopy <10 0 - 5 12/30/2017 [facility] Specific gravity of Urine by Test strip Specific gravity of Urine by Test strip 1.005 1.010 - 1.025 12/30/2017 [facility] Urine clarity Urine clarity CLEAR CLEAR 12/30/2017 [facility] Urine color determination Urine color determination YELLOW YELLOW 12/30/2017 [facility] Urine erythrocytes detection Urine erythrocytes detection 1+ NEGATIVE 12/30/2017 [facility] Urine glucose detection Urine glucose detection NEGATIVE NEGATIVE 12/30/2017 [facility] Urine ketones detection by automated test strip Urine ketones detection by automated test strip NEGATIVE NEGATIVE 12/30/2017 [facility] Urine leukocyte esterase detection by dipstick Urine leukocyte esterase detection by dipstick NEGATIVE NEGATIVE 12/30/2017 [facility] Urine nitrite detection Urine nitrite detection NEGATIVE NEGATIVE 12/30/2017 [facility] Urine pH measurement by automated test strip Urine pH measurement by automated test strip 6 5 - 7 12/30/2017 [facility] Urine protein measurement by test strip (mass/volume) Urine protein measurement by test strip (mass/volume) NEGATIVE NEGATIVE 12/30/2017 [facility] Urine total bilirubin measurement (mass/volume) Urine total bilirubin measurement (mass/volume) NEGATIVE NEGATIVE 12/30/2017 [facility] Urine urobilinogen measurement by test strip (mass/volume) Urine urobilinogen measurement by test strip (mass/volume) 0.2 0.2 - 1 12/30/2017 [facility] Activated partial thromboplastin time (aPTT) in platelet poor plasma bycoagulation assay 44.3 23.8 - 35.5 12/30/2017 [facility] Activated partial thromboplastin time (aPTT) in platelet poor plasma bycoagulation assay Activated partial thromboplastin time (aPTT) in platelet poor plasma bycoagulation assay 44.3 23.8 - 35.5 12/30/2017 [facility] Serum or plasma creatine kinase MB measurement (mass/volume) Serum or plasma creatine kinase MB measurement (mass/volume) 1.60 0 - 5.0 12/29/2017 [facility] Serum or plasma creatine kinase measurement (enzymatic activity/volume) Serum or plasma creatine kinase measurement (enzymatic activity/volume) 20 30 - 200 12/29/2017 [facility] Troponin I measurement by highly sensitive enzyme immunoassay Troponin I measurement by highly sensitive enzyme immunoassay 0.017 0 - 0.300 12/29/2017 [facility] Phosphorus measurement 3.2 2.3 - 4.7 12/28/2017 [facility] Phosphorus measurement Phosphorus measurement 3.2 2.3 - 4.7 12/28/2017 [facility] Serum or plasma magnesium measurement (mass/volume) Serum or plasma magnesium measurement (mass/volume) 1.8 1.3 - 2.1 12/28/2017 [facility] Pathology Reports No Data Provided for This Section Diagnostic Reports No Data Provided for This Section Consultation Notes No Data Provided for This Section Discharge Summaries No Data Provided for This Section History and Physicals No Data Provided for This Section Vital Signs No Data Provided for This Section Encounters Location Location Details Encounter Type Encounter Number Reason For Visit Attending Provider ADM Date DC Date Status Source Discharged Inpatient [id number] ALAN OSUNA MD 12/28/2017 01/08/2018 [facility] Discharged Inpatient [id number] VISHAL PILLAI MD 08/03/2018 08/09/2018 [facility] Discharged Inpatient [id number] VISHAL PILLAI MD 11/14/2018 11/20/2018 [facility] Procedures Procedure Code Date Perfomer Comments Source X-ray of chest, two views [id number] 08/03/2018 STEFANO [facility] Computed tomography of chest with contrast [id number] 12/29/2017 [place] [facility] X-ray of chest, two views [id number] 12/28/2017 CAC[place] [facility] Assessment and Plan No Data Provided for This Section Plan of Care Plan of Care Date Source Discharge Date 11/20/18 4:42pm Disposition HOME, SELF-CARE Instructions/Education Provided Diabetes and Diet Congestive Heart Failure Prescriptions See Medication Section Referrals RAFFY NEWTON MD (Cardiology) Order Date: 1-2 Weeks Entered Date: 11/20/2018 2:51pm Address: [address] [place] [id number] Additional Instructions/Education Follow up with PCP in 1-2 weeks. Continue same home medications. 11/20/2018 [facility] Discharge Date 08/09/18 1:46pm Disposition HOME, SELF-CARE Instructions/Education Provided Congestive Heart Failure Prescriptions See Medication Section Additional Instructions/Education DIABETIC DIET. 1.5 Liter fluid restriction ACTIVITIES TOLERATED FOLLOW UP WITH PCP IN ONE WEEK 08/09/2018 [facility] Discharge Date 01/08/18 5:07pm Disposition TRANS TO OTHER [facility] FAC[facility] Instructions/Education Provided Bronchitis (Acute) - Adult Congestive Heart Failure Prescriptions See Medication Section Additional Instructions/Education CONTINUED CARE AT MEDICAL RESORT 01/08/2018 [facility] Social History Social History Date Source Social History Problem Response Recorded Date/Time Onset Date Status Hx Psychiatric Problems No 02/13/2015 4:10pm Not Applicable Not Applicable Hx Eating Disorder No 07/29/2014 10:36pm Not Applicable Not Applicable Hx Substance Use Disorder No 07/29/2014 10:36pm Not Applicable Not Applicable Hx Depression No 02/13/2015 4:10pm Not Applicable Not Applicable Hx Alcohol Use No 02/13/2015 4:10pm Not Applicable Not Applicable Hx Substance Use Treatment No 02/13/2015 4:10pm Not Applicable Not Applicable Hx Physical Abuse No 02/13/2015 4:10pm Not Applicable Not Applicable Smoking Status Start Date Stop Date Never Smoker 11/20/2018 [facility] Family History No Data Provided for This Section Advance Directives Order Name Results Value Date Source Advance Directives Advance Directives Directive Response Recorded Date/Time Does the patient have an advance directive? No 11/14/18 6:30pm If yes, is advance directive on file with [facility]? No 11/14/18 6:30pm If not on file with [facility] will patient provide a copy? Yes 11/14/18 6:30pm Do you have a Directive to Physician? Yes 11/14/18 3:29pm Do you have a Medical Power of Healthcare Social Worker? Yes 11/14/18 3:29pm Do you have an out of hospital Do Not Resuscitate Order? Yes 11/14/18 3:29pm Do you have any special needs we should be aware of? No 11/14/18 3:29pm Do you have a support person here with you today? Yes 11/14/18 3:29pm Did patient receive Notice of Privacy Practices? Yes 11/14/18 3:29pm Did patient receive patient rights and responsibilities? Yes 11/14/18 3:29pm 11/20/2018 [facility] Advance Directives Advance Directives Directive Response Recorded Date/Time Does the patient have an advance directive? Yes 08/03/18 9:56pm If yes, is advance directive on file with [facility]? No 08/03/18 9:56pm If not on file with [facility] will patient provide a copy? Yes 08/03/18 9:56pm Do you have a Directive to Physician? Yes 08/03/18 6:46pm Do you have a Medical Power of Healthcare Social Worker? Yes 08/03/18 6:46pm Do you have an out of hospital Do Not Resuscitate Order? Yes 08/03/18 6:46pm Do you have any special needs we should be aware of? No 08/03/18 6:45pm Do you have a support person here with you today? Yes 08/03/18 6:46pm Did patient receive Notice of Privacy Practices? Yes 08/03/18 6:46pm Did patient receive patient rights and responsibilities? Yes 08/03/18 6:46pm 08/09/2018 [facility] Advance Directives Advance Directives Directive Response Recorded Date/Time Does the patient have an advance directive? No 12/28/17 8:52pm If yes, is advance directive on file with [facility]? No 12/28/17 8:52pm If not on file with [facility] will patient provide a copy? No 12/28/17 8:52pm Do you have a Directive to Physician? No 12/28/17 3:49pm Do you have a Medical Power of Healthcare Social Worker? No 12/28/17 3:49pm Do you have an out of hospital Do Not Resuscitate Order? No 12/28/17 3:49pm Do you have any special needs we should be aware of? No 12/28/17 3:49pm Do you have a support person here with you today? Yes 12/28/17 3:49pm Did patient receive Notice of Privacy Practices? Yes 12/28/17 3:49pm Did patient receive patient rights and responsibilities? Yes 12/28/17 3:49pm 01/08/2018 [facility] Functional Status No Data Provided for This Section
--- NOTE | 2018-12-21 14:05 | NUR ---
RT AT BEDSIDE WITH BIPAP FOR PT.
[2018-12-21] MEDS ORDERED: METHYLPREDNISOLONE SOD SUCC 125 MG/2ML VIAL IV NR (14:30)
[2018-12-21] MEDS ORDERED: ALBUTEROL/IPRATROPIUM 3 ML NEB NEB NR (14:30)
[2018-12-21] MEDS ORDERED: MAGNESIUM SULFATE 2GM/50ML 50 ML IV ONE (14:30)
--- NOTE | 2018-12-21 14:32 | NUR ---
RT AT BEDSIDE FOR ABG DRAW.
--- NOTE | 2018-12-21 14:36 | NUR ---
RADIOLOGY AT BEDSIDE FOR CXR AT THIS TIME.
--- NOTE | 2018-12-21 14:36 | NUR ---
CALLED ECHOVASCULAR TECH TO INFORM OF STAT EXAM, INFORMED THAT TECH WILL BE COMING TO PERFORM SONOGRAM.
[2018-12-21 14:45] LABS: BASOPHILS # (AUTO) 0.1 (0.0-0.1); BASOPHILS % 0.8 % (0.0-1.0); EOSINOPHILS # (AUTO) 0.1 (0.0-0.4); EOSINOPHILS % 0.7 % (0.0-6.0); HEMATOCRIT 47.6 % (38.2-49.6); HEMOGLOBIN 14.6 g/dL (14.0-18.0); LYMPHOCYTES # (AUTO) 0.6 (1.0-3.2); LYMPHOCYTES % 5.5 % (18.0-39.1); MEAN CORPUSCULAR HEMOGLOBIN 29.3 pg (28-32); MEAN CORPUSCULAR HGB CONC 30.7 g/dL (31-35); MEAN CORPUSCULAR VOLUME 95.4 fL (81-99); MONOCYTES # (AUTO) 0.9 (0.2-0.8); MONOCYTES % 9.3 % (4.4-11.3); NEUTROPHILS # (AUTO) 8.4 (2.1-6.9); PLATELET COUNT 218 x10e3/uL (140-360); RED BLOOD COUNT 4.99 x10e6/uL (4.3-5.7); RED CELL DISTRIBUTION WIDTH 20.5 % (11.7-14.4)
[2018-12-21 14:58] LABS: ABG HCO3 33 mmol/L (23-28); ABG PCO2 55 mmHg (41-51); ABG PO2 115 mmHg (80-105)
--- NOTE | 2018-12-21 15:02 | NUR ---
ECHOVASCULAR TECH AT BEDSIDE FOR SONOGRAM AT THIS TIME.
[2018-12-21 15:05] LABS: ALANINE AMINOTRANSFERASE 15 IU/L (0-55); ALBUMIN 2.8 g/dL (3.5-5.0); ALBUMIN/GLOBULIN RATIO 0.6 (0.8-2.0); ALKALINE PHOSPHATASE 153 IU/L (40-150); ANION GAP 14.1 mmol/L (8-16); BLOOD UREA NITROGEN 20 mg/dL (7-26); BUN/CREATININE RATIO 20 (6-25); CALCIUM 9.2 mg/dL (8.4-10.2); CARBON DIOXIDE 33 mmol/L (22-29); CHLORIDE 97 mmol/L (98-107); CREATININE, SERUM 1.01 mg/dL (0.72-1.25); EST GLOMERULAR FILTRATION RATE > 60 ML/MIN (60-); GLUCOSE 142 mg/dL (74-118); POTASSIUM 4.1 mmol/L (3.5-5.1); SODIUM 140 mmol/L (136-145)
--- NOTE | 2018-12-21 15:08 | Diagnostic Imaging Report ---
Chest, 1 view, 12/21/2018. History: Shortness of breath. Comparison: 11/17/2018. Findings: The cardiomediastinal silhouette and pulmonary vasculature are prominent with hazy bilateral perihilar and bibasilar opacities, right greater the left, with blunting of the right posterior sulcus. Left subclavian dual-lead pacer and median sternotomy wires are again noted. There are no acute osseous or soft tissue abnormalities. Impression: Worsening CHF with bibasilar atelectasis and probable right pleural effusion. Signed by: Nathan Cedeno on 12/21/2018 3:05 PM
[2018-12-21] MEDS ORDERED: FUROSEMIDE INJ 10 MG/ML 4 ML VIAL IV ONE (16:30)
[2018-12-21] MEDS ORDERED: FLUCONAZOLE 100 MG/NS 50 ML 50 ML IV NR (16:30)
[2018-12-21] MEDS ORDERED: ASPIRIN 81 MG CHEW TAB PO ONE (16:45)
[2018-12-21] MEDS ORDERED: SODIUM CHLORIDE FLUSH 10 ML SYR INJ PRN (16:45)
[2018-12-21] MEDS ORDERED: FUROSEMIDE INJ 10 MG/ML 4 ML VIAL IV NR (16:45)
[2018-12-21] MEDS ORDERED: ENOXAPARIN SOD INJ 40 MG/0.4 ML SYR SC SCH (17:00)
[2018-12-21] MEDS: FUROSEMIDE INJ 10 MG/ML 4 ML VIAL IV SCH (18:10)
[2018-12-21] MEDS: SPIRONOLACTONE 25 MG TAB PO SCH (18:12)
[2018-12-21] MEDS: CEFEPIME 1GM/NS 0.9% 50 ML 50 ML IV SCH (18:16)
--- OUTSIDE RECORDS SUMMARY | 2018-12-21 18:19 | XMS REPORT | Clinical Summary ---
Author Author [employer] Address Unknown Phone Unavailable Care Team [facility]iders [facility] Administrator Name Role Phone Allyson Robles MD PCP [...] Effective Phone Address Plan / Dates Group [facility] MEDICARE AARP xxxxxxxxx 2016-P MEDICARE resent [facility] Advance Directives Patient has advance care planning documents on file. For more information, yvonne bowers contact: Fidel García [address] [place] [address]
--- OUTSIDE RECORDS SUMMARY | 2018-12-21 18:19 | XMS REPORT | Continuity of Care Document ---
Author Author [employer] Address Unknown Phone Unavailable Care Team Providers [facility] [employer] Lead Name Role Phone [employer] Unavailable Unavailable Problems Problem Status Onset Date Classification Date Reported Comments Source DVT Active 02/12/2015 Problem 11/20/2018 [facility] Bronchospasm Active 07/29/2014 Problem 11/20/2018 [facility] Down's syndrome Active 07/29/2014 Problem 11/20/2018 [facility] Pneumonia Active 07/29/2014 Problem 11/20/2018 [facility] CHF exacerbation Active Problem 11/20/2018 [facility] Pulmonary edema cardiac cause Active Problem 11/20/2018 [facility] Respiratory failure with hypoxia Active Problem 11/20/2018 [facility] Medications Medication Details Route Status Patient Instructions Ordering Provider Order Date Source Levothyroxine Sodium 75 Mcg Tablet, 75 Mcg Oral Daily Active 08/09/2018 [facility] Warfarin Sodium 6 Mg Tablet, 1 Tab Oral Daily Active 01/08/2018 [facility] Levothyroxine Sodium 75 Mcg Tablet, 1 Tab Oral Rt Daily Active 02/13/2015 [facility] Simvastatin 40 Mg Tablet, 40 Mg Oral Daily for Cholesterol Active 02/13/2015 [facility] Simvastatin 40 Mg Tablet, 40 Mg Oral Daily for Cholesterol Active 02/13/2015 [facility] Potassium Chloride (K Dur*) 10 Meq Tabcr, 10 Meq Oral Daily At 1700 Active Pillai 08/04/2014 [facility] Potassium Chloride (K Dur*) 10 Meq Tabcr, 10 Meq Oral Daily At 1700 Active Pillai 08/04/2014 [facility] Allopurinol 100 Mg Tablet Daily Active [facility] Ergocalciferol (Vitamin D2) (Ergocalciferol) 8,000 Unit/1 Ml Drops Once Active [facility] Furosemide (Lasix) 40 Mg Tablet Daily Active [facility] Glimepiride 2 Mg Tablet Daily Active [facility] Levothyroxine Sodium 75 Mcg Tablet Daily Active [facility] Metformin Hcl 500 Mg Tablet Every Morning Active [facility] Metformin Hcl 500 Mg Tablet Bedtime Active [facility] Metoprolol Succinate 25 Mg Tab.er.24h Daily Active [facility] Potassium Chloride (Klor-Con 10) 10 Meq Tablet.er Twice A Day Active [facility] Simvastatin 40 Mg Tablet Bedtime Active [facility] Warfarin Sodium 1 Mg Tablet Daily Active [facility] Allopurinol 100 Mg Tablet Daily Active [facility] Ergocalciferol (Vitamin D2) (Ergocalciferol) 8,000 Unit/1 Ml Drops Once Active [facility] Furosemide (Lasix) 40 Mg Tablet Three Times A Day Active [facility] Glimepiride 2 Mg Tablet Daily Active [facility] Levothyroxine Sodium 75 Mcg Tablet Daily Active [facility] Metoprolol Succinate 25 Mg Tab.er.24h Daily Active [facility] Potassium Chloride (Klor-Con 10) 10 Meq Tablet.er Twice A Day Active [facility] Warfarin Sodium 1 Mg Tablet Daily Active [facility] Allergies, Adverse Reactions, Alerts Substance Category Reaction Severity Reaction type Status Date Reported Comments Source Vancomycin Unknown Allergy to Substance Active 08/03/2018 [facility] Cefdinir ITCHING Mild Allergy to Substance Active 11/14/2018 [facility] Immunizations No Data Provided for This Section Results Order Name Results Value Reference Range Date Interpretation Comments Source Serum or plasma sodium measurement (moles/volume) 140 136 - 145 11/19/2018 [facility] Serum or plasma potassium measurement (moles/volume) 3.4 3.5 - 5.1 11/19/2018 [facility] Serum or plasma chloride measurement (moles/volume) 93 98 - 107 11/19/2018 [facility] Serum or plasma carbon dioxide, total measurement (moles/volume) 39 22 - 29 11/19/2018 [facility] Serum or plasma anion gap 11.4 8 - 16 11/19/2018 [facility] Serum or plasma urea nitrogen measurement (mass/volume) 11 7 - 26 11/19/2018 [facility] Serum or plasma creatinine measurement (mass/volume) 0.77 0.72 - 1.25 11/19/2018 [facility] Serum or plasma urea nitrogen/creatinine mass ratio 14 6 - 25 11/19/2018 [facility] Estimated glomerular filtration rate (GFR) determination > 60 60 11/19/2018 [facility] Glucose measurement 135 74 - 118 11/19/2018 [facility] Serum or plasma calcium measurement (mass/volume) 9.2 8.4 - 10.2 11/19/2018 [facility] Capillary blood glucose measurement by glucometer (mass/volume) 232 70 - 120 11/18/2018 [facility] Serum or plasma magnesium measurement (mass/volume) 2.2 1.3 - 2.1 11/18/2018 [facility] Blood leukocytes automated count (number/volume) 9.26 4.8 - 10.8 11/17/2018 [facility] Blood erythrocytes automated count (number/volume) 4.55 4.3 - 5.7 11/17/2018 [facility] Blood hemoglobin measurement (moles/volume) 13.5 14.0 - 18.0 11/17/2018 [facility] Automated blood hematocrit (volume fraction) 44.1 38.2 - 49.6 11/17/2018 [facility] Automated erythrocyte mean corpuscular volume 96.9 81 - 99 11/17/2018 [facility] Automated erythrocyte mean corpuscular hemoglobin (mass per erythrocyte) 29.7 28 - 32 11/17/2018 [facility] Automated erythrocyte mean corpuscular hemoglobin concentration measurement (mass/volume) 30.6 31 - 35 11/17/2018 [facility] RDW BldCo-Rto 19.5 11.7 - 14.4 11/17/2018 [facility] Automated blood platelet count (count/volume) 202 140 - 360 11/17/2018 [facility] Automated blood segmented neutrophil count as percentage of total leukocytes 82.1 38.7 - 80.0 11/17/2018 [facility] Automated blood lymphocyte count as percentage ot total leukocytes 6.6 18.0 - 39.1 11/17/2018 [facility] Automated blood monocyte count as percentage of total leukocytes 9.0 4.4 - 11.3 11/17/2018 [facility] Automated blood eosinophil count as percentage of total leukocytes 1.3 0.0 - 6.0 11/17/2018 [facility] Automated blood basophil count as percentage of total leukocytes 0.6 0.0 - 1.0 11/17/2018 [facility] IM GRANULOCYTES % 0.4 0.0 - 1.0 11/17/2018 [facility] Automated blood neutrophil count 7.6 2.1 - 6.9 11/17/2018 [facility] Blood lymphocytes count (number/volume) 0.6 1.0 - 3.2 11/17/2018 [facility] Blood monocytes automated count (number/volume) 0.8 0.2 - 0.8 11/17/2018 [facility] Automated blood eosinophil count 0.1 0.0 - 0.4 11/17/2018 [facility] Automated blood basophil count (count/volume) 0.1 0.0 - 0.1 11/17/2018 [facility] Absolute Immature Granulocyte (auto 0.04 0 - 0.1 11/17/2018 [facility] Serum or plasma creatine kinase measurement (enzymatic activity/volume) < 7 30 - 200 11/15/2018 [facility] Serum or plasma creatine kinase MB measurement (mass/volume) 1.30 0 - 5.0 11/15/2018 [facility] Troponin I measurement by highly sensitive enzyme immunoassay 0.031 0 - 0.300 11/15/2018 [facility] Venous Blood pH 7.388 7.35 - 7.38 11/14/2018 [facility] Venous Blood Partial Pressure CO2 55.5 44 - 48 11/14/2018 [facility] Venous Blood Partial Pressure O2 46 40 - 41 11/14/2018 [facility] Venous Blood HCO3 33.5 21 - 22 11/14/2018 [facility] Venous Blood Total Carbon Dioxide 35 11/14/2018 [facility] Venous Blood Base Excess 8 11/14/2018 [facility] Venous Blood Oxygen Saturation 80 11/14/2018 [facility] FiO2 32 11/14/2018 [facility] Lactic Acid Level 17.6 4.5 - 19.8 11/14/2018 [facility] BNP Bld-mCnc 193.4 0 - 100 11/14/2018 [facility] Prothrombin time (PT) in platelet poor plasma by coagulation assay 29.2 11.9 - 14.5 11/14/2018 [facility] INR in Platelet poor plasma by Coagulation assay 2.67 11/14/2018 [facility] Activated partial thromboplastin time (aPTT) in platelet poor plasma bycoagulation assay 44.6 23.8 - 35.5 11/14/2018 [facility] Serum or plasma total bilirubin measurement (mass/volume) 1.2 0.2 - 1.2 11/14/2018 [facility] Aspartate Amino Transf (AST/SGOT) 23 5 - 34 11/14/2018 [facility] Serum or plasma alanine aminotransferase measurement (enzymatic activity/volume) 18 0 - 55 11/14/2018 [facility] Serum or plasma protein measurement (mass/volume) 7.4 6.5 - 8.1 11/14/2018 [facility] Serum or plasma albumin measurement (mass/volume) 3.0 3.5 - 5.0 11/14/2018 [facility] Plasma globulin measurement (mass/volume) 4.4 2.3 - 3.5 11/14/2018 [facility] Serum or plasma albumin/globulin mass ratio 0.7 0.8 - 2.0 11/14/2018 [facility] Serum or plasma alkaline phosphatase measurement (enzymatic activity/volume) 151 40 - 150 11/14/2018 [facility] Prothrombin time (PT) in platelet poor plasma by coagulation assay 27.1 11.9 - 14.5 08/09/2018 [facility] INR in Platelet poor plasma by Coagulation assay 2.43 08/09/2018 [facility] Blood leukocytes automated count (number/volume) 7.20 4.8 - 10.8 08/09/2018 [facility] Blood erythrocytes automated count (number/volume) 4.82 4.3 - 5.7 08/09/2018 [facility] Blood hemoglobin measurement (moles/volume) 14.5 14.0 - 18.0 08/09/2018 [facility] Automated blood hematocrit (volume fraction) 46.2 38.2 - 49.6 08/09/2018 [facility] Automated erythrocyte mean corpuscular volume 95.9 81 - 99 08/09/2018 [facility] Automated erythrocyte mean corpuscular hemoglobin (mass per erythrocyte) 30.1 28 - 32 08/09/2018 [facility] Automated erythrocyte mean corpuscular hemoglobin concentration measurement (mass/volume) 31.4 31 - 35 08/09/2018 [facility] RDW BldCo-Rto 19.2 11.7 - 14.4 08/09/2018 [facility] Automated blood platelet count (count/volume) 219 140 - 360 08/09/2018 [facility] Automated blood segmented neutrophil count as percentage of total leukocytes 76.1 38.7 - 80.0 08/09/2018 [facility] Automated blood lymphocyte count as percentage ot total leukocytes 10.0 18.0 - 39.1 08/09/2018 [facility] Automated blood monocyte count as percentage of total leukocytes 10.0 4.4 - 11.3 08/09/2018 [facility] Automated blood eosinophil count as percentage of total leukocytes 2.5 0.0 - 6.0 08/09/2018 [facility] Automated blood basophil count as percentage of total leukocytes 0.8 0.0 - 1.0 08/09/2018 [facility] IM GRANULOCYTES % 0.6 0.0 - 1.0 08/09/2018 [facility] Automated blood neutrophil count 5.5 2.1 - 6.9 08/09/2018 [facility] Blood lymphocytes count (number/volume) 0.7 1.0 - 3.2 08/09/2018 [facility] Blood monocytes automated count (number/volume) 0.7 0.2 - 0.8 08/09/2018 [facility] Automated blood eosinophil count 0.2 0.0 - 0.4 08/09/2018 [facility] Automated blood basophil count (count/volume) 0.1 0.0 - 0.1 08/09/2018 [facility] Absolute Immature Granulocyte (auto 0.04 0 - 0.1 08/09/2018 [facility] Serum or plasma sodium measurement (moles/volume) 134 136 - 145 08/09/2018 [facility] Serum or plasma potassium measurement (moles/volume) 3.7 3.5 - 5.1 08/09/2018 [facility] Serum or plasma chloride measurement (moles/volume) 93 98 - 107 08/09/2018 [facility] Serum or plasma carbon dioxide, total measurement (moles/volume) 32 22 - 29 08/09/2018 [facility] Serum or plasma anion gap 12.7 8 - 16 08/09/2018 [facility] Serum or plasma urea nitrogen measurement (mass/volume) 14 7 - 26 08/09/2018 [facility] Serum or plasma creatinine measurement (mass/volume) 0.84 0.72 - 1.25 08/09/2018 [facility] Serum or plasma urea nitrogen/creatinine mass ratio 17 6 - 25 08/09/2018 [facility] Estimated glomerular filtration rate (GFR) determination > 60 60 08/09/2018 [facility] Glucose measurement 114 74 - 118 08/09/2018 [facility] Serum or plasma calcium measurement (mass/volume) 9.2 8.4 - 10.2 08/09/2018 [facility] Serum or plasma magnesium measurement (mass/volume) 2.0 1.3 - 2.1 08/09/2018 [facility] Capillary blood glucose measurement by glucometer (mass/volume) 117 70 - 120 08/07/2018 [facility] BNP Bld-mCnc 44.3 0 - 100 08/07/2018 [facility] Serum or plasma creatine kinase measurement (enzymatic activity/volume) 13 30 - 200 08/04/2018 [facility] Serum or plasma creatine kinase MB measurement (mass/volume) 0.60 0 - 5.0 08/04/2018 [facility] Troponin I measurement by highly sensitive enzyme immunoassay 0.022 0 - 0.300 08/04/2018 [facility] Serum or plasma total bilirubin measurement (mass/volume) 0.9 0.2 - 1.2 08/03/2018 [facility] Aspartate Amino Transf (AST/SGOT) 23 5 - 34 08/03/2018 [facility] Serum or plasma alanine aminotransferase measurement (enzymatic activity/volume) 19 0 - 55 08/03/2018 [facility] Serum or plasma protein measurement (mass/volume) 7.3 6.5 - 8.1 08/03/2018 [facility] Serum or plasma albumin measurement (mass/volume) 3.0 3.5 - 5.0 08/03/2018 [facility] Plasma globulin measurement (mass/volume) 4.3 2.3 - 3.5 08/03/2018 [facility] Serum or plasma albumin/globulin mass ratio 0.7 0.8 - 2.0 08/03/2018 [facility] Serum or plasma alkaline phosphatase measurement (enzymatic activity/volume) 103 40 - 150 08/03/2018 [facility] Arterial blood pH measurement 7.42 7.31 - 7.41 08/03/2018 [facility] pCO2 BldA 47 41 - 51 08/03/2018 [facility] pCO2 BldA 60 80 - 105 08/03/2018 [facility] Arterial blood bicarbonate measurement (moles/volume) 31 23 - 28 08/03/2018 [facility] Arterial blood base excess by calculation 6.0 -2 - 3 - 2 08/03/2018 [facility] Arterial blood oxygen saturation measurement 91.0 95 - 98 08/03/2018 [facility] FiO2 40 08/03/2018 [facility] Arterial blood pH measurement 7.42 7.31 - 7.41 08/03/2018 [facility] pCO2 BldA 47 41 - 51 08/03/2018 [facility] pCO2 BldA 60 80 - 105 08/03/2018 [facility] Arterial blood bicarbonate measurement (moles/volume) 31 23 - 28 08/03/2018 [facility] Arterial blood base excess by calculation 6.0 -2 - 3 - 2 08/03/2018 [facility] Arterial blood oxygen saturation measurement 91.0 95 - 98 08/03/2018 [facility] Capillary blood glucose measurement by glucometer (mass/volume) Capillary blood glucose measurement by glucometer (mass/volume) 198 70 - 120 01/08/2018 [facility] Automated blood basophil count (count/volume) Automated blood basophil count (count/volume) 0.1 0.0 - 0.1 01/08/2018 [facility] Automated blood basophil count as percentage of total leukocytes Automated blood basophil count as percentage of total leukocytes 0.9 0.0 - 1.0 01/08/2018 [facility] Automated blood eosinophil count Automated blood eosinophil count 0.1 0.0 - 0.4 01/08/2018 [facility] Automated blood eosinophil count as percentage of total leukocytes Automated blood eosinophil count as percentage of total leukocytes 1.1 0.0 - 6.0 01/08/2018 [facility] Automated blood hematocrit (volume fraction) Automated blood hematocrit (volume fraction) 46.0 38.2 - 49.6 01/08/2018 [facility] Automated blood lymphocyte count as percentage ot total leukocytes Automated blood lymphocyte count as percentage ot total leukocytes 7.1 18.0 - 39.1 01/08/2018 [facility] Automated blood monocyte count as percentage of total leukocytes Automated blood monocyte count as percentage of total leukocytes 13.5 4.4 - 11.3 01/08/2018 [facility] Automated blood neutrophil count Automated blood neutrophil count 6.8 2.1 - 6.9 01/08/2018 [facility] Automated blood platelet count (count/volume) Automated blood platelet count (count/volume) 262 140 - 360 01/08/2018 [facility] Automated blood segmented neutrophil count as percentage of total leukocytes Automated blood segmented neutrophil count as percentage of total leukocytes 76.8 38.7 - 80.0 01/08/2018 [facility] Automated erythrocyte mean corpuscular hemoglobin (mass per erythrocyte) Automated erythrocyte mean corpuscular hemoglobin (mass per erythrocyte) 30.5 28 - 32 01/08/2018 [facility] Automated erythrocyte mean corpuscular hemoglobin concentration measurement (mass/volume) Automated erythrocyte mean corpuscular hemoglobin concentration measurement (mass/volume) 32.0 31 - 35 01/08/2018 [facility] Automated erythrocyte mean corpuscular volume Automated erythrocyte mean corpuscular volume 95.4 81 - 99 01/08/2018 [facility] Blood erythrocytes automated count (number/volume) Blood erythrocytes automated count (number/volume) 4.82 4.3 - 5.7 01/08/2018 [facility] Blood hemoglobin measurement (moles/volume) Blood hemoglobin measurement (moles/volume) 14.7 14.0 - 18.0 01/08/2018 [facility] Blood leukocytes automated count (number/volume) Blood leukocytes automated count (number/volume) 8.86 4.8 - 10.8 01/08/2018 [facility] Blood lymphocytes count (number/volume) Blood lymphocytes count (number/volume) 0.6 1.0 - 3.2 01/08/2018 [facility] Blood monocytes automated count (number/volume) Blood monocytes automated count (number/volume) 1.2 0.2 - 0.8 01/08/2018 [facility] Red Cell Distribution Width 18.2 11.7 - 14.4 01/08/2018 [facility] IM GRANULOCYTES % 0.6 0.0 - 1.0 01/08/2018 [facility] Absolute Immature Granulocyte (auto 0.05 0 - 0.1 01/08/2018 [facility] B-Type Natriuretic Peptide 49.3 0 - 100 01/08/2018 [facility] Estimated glomerular filtration rate (GFR) determination Estimated glomerular filtration rate (GFR) determination >60 60 01/08/2018 [facility] Glucose measurement Glucose measurement 164 74 - 118 01/08/2018 [facility] Plasma globulin measurement (mass/volume) Plasma globulin measurement (mass/volume) 4.8 2.3 - 3.5 01/08/2018 [facility] Serum or plasma alanine aminotransferase measurement (enzymatic activity/volume) Serum or plasma alanine aminotransferase measurement (enzymatic activity/volume) 20 0 - 55 01/08/2018 [facility] Serum or plasma albumin measurement (mass/volume) Serum or plasma albumin measurement (mass/volume) 2.4 3.5 - 5.0 01/08/2018 [facility] Serum or plasma albumin/globulin mass ratio Serum or plasma albumin/globulin mass ratio 0.5 0.8 - 2.0 01/08/2018 [facility] Serum or plasma alkaline phosphatase measurement (enzymatic activity/volume) Serum or plasma alkaline phosphatase measurement (enzymatic activity/volume) 136 40 - 150 01/08/2018 [facility] Serum or plasma anion gap Serum or plasma anion gap 13.9 8 - 16 01/08/2018 [facility] [facility] Serum or plasma calcium measurement (mass/volume) Serum or plasma calcium measurement (mass/volume) 9.7 8.4 - 10.2 01/08/2018 [facility] Serum or plasma carbon dioxide, total measurement (moles/volume) Serum or plasma carbon dioxide, total measurement (moles/volume) 32 22 - 29 01/08/2018 [facility] Serum or plasma chloride measurement (moles/volume) Serum or plasma chloride measurement (moles/volume) 93 98 - 107 01/08/2018 [facility] Serum or plasma creatinine measurement (mass/volume) Serum or plasma creatinine measurement (mass/volume) 0.90 0.72 - 1.25 01/08/2018 [facility] Serum or plasma potassium measurement (moles/volume) Serum or plasma potassium measurement (moles/volume) 3.9 3.5 - 5.1 01/08/2018 [facility] Serum or plasma protein measurement (mass/volume) Serum or plasma protein measurement (mass/volume) 7.2 6.5 - 8.1 01/08/2018 [facility] Serum or plasma sodium measurement (moles/volume) Serum or plasma sodium measurement (moles/volume) 135 136 - 145 01/08/2018 [facility] Serum or plasma total bilirubin measurement (mass/volume) Serum or plasma total bilirubin measurement (mass/volume) 1.8 0.2 - 1.2 01/08/2018 [facility] Serum or plasma urea nitrogen measurement (mass/volume) Serum or plasma urea nitrogen measurement (mass/volume) 22 7 - 26 01/08/2018 [facility] Serum or plasma urea nitrogen/creatinine mass ratio Serum or plasma urea nitrogen/creatinine mass ratio 24 6 - 25 01/08/2018 [facility] Aspartate Amino Transf (AST/SGOT) 26 5 - 34 01/08/2018 [facility] INR in Platelet poor plasma by Coagulation assay INR in Platelet poor plasma by Coagulation assay 2.22 01/07/2018 [facility] Prothrombin time (PT) in platelet poor plasma by coagulation assay Prothrombin time (PT) in platelet poor plasma by coagulation assay 23.1 11.9 - 14.5 01/07/2018 [facility] Urine color determination YELLOW YELLOW 12/30/2017 [facility] Urine clarity CLEAR CLEAR 12/30/2017 [facility] Specific gravity of Urine by Test strip 1.005 1.010 - 1.025 12/30/2017 [facility] Urine pH measurement by automated test strip 6 5 - 7 12/30/2017 [facility] Urine leukocyte esterase detection by dipstick NEGATIVE NEGATIVE 12/30/2017 [facility] Urine nitrite detection NEGATIVE NEGATIVE 12/30/2017 [facility] Urine protein measurement by test strip (mass/volume) NEGATIVE NEGATIVE 12/30/2017 [facility] Urine glucose detection NEGATIVE NEGATIVE 12/30/2017 [facility] Urine ketones detection by automated test strip NEGATIVE NEGATIVE 12/30/2017 [facility] Urine urobilinogen measurement by test strip (mass/volume) 0.2 0.2 - 1 12/30/2017 [facility] Urine total bilirubin measurement (mass/volume) NEGATIVE NEGATIVE 12/30/2017 [facility] Urine erythrocytes detection 1+ NEGATIVE 12/30/2017 [facility] Automated urine sediment leukocyte count by microscopy (number/high power field) 0-5 0 - 5 12/30/2017 [facility] Erythrocytes detection in urine sediment by light microscopy 6-10 0 - 5 12/30/2017 [facility] Bacteria detection in urine sediment by light microscopy NONE NONE 12/30/2017 [facility] Epithelial cells detection in urine sediment by light microscopy FEW NONE 12/30/2017 [facility] Automated urine sediment leukocyte count by microscopy (number/high power field) Automated urine sediment leukocyte count by microscopy (number/high power field) <5 0 - 5 12/30/2017 [facility] Bacteria detection in urine sediment by light microscopy Bacteria detection in urine sediment by light microscopy NONE NONE 12/30/2017 [facility] Epithelial cells detection in urine sediment by light microscopy Epithelial cells detection in urine sediment by light microscopy FEW NONE 12/30/2017 [facility] Erythrocytes detection in urine sediment by light microscopy Erythrocytes detection in urine sediment by light microscopy <10 0 - 5 12/30/2017 [facility] Specific gravity of Urine by Test strip Specific gravity of Urine by Test strip 1.005 1.010 - 1.025 12/30/2017 [facility] Urine clarity Urine clarity CLEAR CLEAR 12/30/2017 [facility] Urine color determination Urine color determination YELLOW YELLOW 12/30/2017 [facility] Urine erythrocytes detection Urine erythrocytes detection 1+ NEGATIVE 12/30/2017 [facility] Urine glucose detection Urine glucose detection NEGATIVE NEGATIVE 12/30/2017 [facility] Urine ketones detection by automated test strip Urine ketones detection by automated test strip NEGATIVE NEGATIVE 12/30/2017 [facility] Urine leukocyte esterase detection by dipstick Urine leukocyte esterase detection by dipstick NEGATIVE NEGATIVE 12/30/2017 [facility] Urine nitrite detection Urine nitrite detection NEGATIVE NEGATIVE 12/30/2017 [facility] Urine pH measurement by automated test strip Urine pH measurement by automated test strip 6 5 - 7 12/30/2017 [facility] Urine protein measurement by test strip (mass/volume) Urine protein measurement by test strip (mass/volume) NEGATIVE NEGATIVE 12/30/2017 [facility] Urine total bilirubin measurement (mass/volume) Urine total bilirubin measurement (mass/volume) NEGATIVE NEGATIVE 12/30/2017 [facility] Urine urobilinogen measurement by test strip (mass/volume) Urine urobilinogen measurement by test strip (mass/volume) 0.2 0.2 - 1 12/30/2017 [facility] Activated partial thromboplastin time (aPTT) in platelet poor plasma bycoagulation assay 44.3 23.8 - 35.5 12/30/2017 [facility] Activated partial thromboplastin time (aPTT) in platelet poor plasma bycoagulation assay Activated partial thromboplastin time (aPTT) in platelet poor plasma bycoagulation assay 44.3 23.8 - 35.5 12/30/2017 [facility] Serum or plasma creatine kinase MB measurement (mass/volume) Serum or plasma creatine kinase MB measurement (mass/volume) 1.60 0 - 5.0 12/29/2017 [facility] Serum or plasma creatine kinase measurement (enzymatic activity/volume) Serum or plasma creatine kinase measurement (enzymatic activity/volume) 20 30 - 200 12/29/2017 [facility] Troponin I measurement by highly sensitive enzyme immunoassay Troponin I measurement by highly sensitive enzyme immunoassay 0.017 0 - 0.300 12/29/2017 [facility] Phosphorus measurement 3.2 2.3 - 4.7 12/28/2017 [facility] Phosphorus measurement Phosphorus measurement 3.2 2.3 - 4.7 12/28/2017 [facility] Serum or plasma magnesium measurement (mass/volume) Serum or plasma magnesium measurement (mass/volume) 1.8 1.3 - 2.1 12/28/2017 [facility] Pathology Reports No Data Provided for This [...] Date DC Date Status Source Discharged Inpatient [id number] ALAN OSUNA MD 12/28/2017 01/08/2018 [facility] Discharged Inpatient [id number] VISHAL PILLAI MD 08/03/2018 08/09/2018 [facility] Discharged Inpatient [id number] VISHAL PILLAI MD 11/14/2018 11/20/2018 [facility] Procedures Procedure Code Date Perfomer Comments Source X-ray of chest, two views [id number] 08/03/2018 STEFANO [facility] Computed tomography of chest with contrast [id number] 12/29/2017 [place]AHOOD [facility] X-ray of chest, two views [id number] 12/28/2017 CACACE [facility] Assessment and Plan No Data Provided for This Section Plan of Care Plan of Care Date Source Discharge Date 11/20/18 4:42pm Disposition HOME, SELF-CARE Instructions/Education Provided Diabetes and Diet Congestive Heart Failure Prescriptions See Medication Section Referrals RAFFY NEWTON MD (Cardiology) Order Date: 1-2 Weeks Entered Date: 11/20/2018 2:51pm Address: [address] [place] [id number] Additional Instructions/Education Follow up with PCP in 1-2 weeks. Continue same home medications. 11/20/2018 [facility] Discharge Date 08/09/18 1:46pm Disposition HOME, SELF-CARE Instructions/Education Provided Congestive Heart Failure Prescriptions See Medication Section Additional Instructions/Education DIABETIC DIET. 1.5 Liter fluid restriction ACTIVITIES TOLERATED FOLLOW UP WITH PCP IN ONE WEEK 08/09/2018 [facility] Discharge Date 01/08/18 5:07pm [facility]position [facility] Instructions/Education Provided Bronchitis (Acute) - Adult Congestive Heart Failure Prescriptions See Medication Section Additional Instructions/Education CONTINUED CARE AT MEDICAL RESORT 01/08/2018 [facility] Social History Social History Date Source Social [...] Start Date Stop Date Never Smoker 11/20/2018 [facility] Family History No Data Provided for This Section Advance Directives Order Name Results Value Date Source Advance Directives Advance Directives Directive Response Recorded Date/Time Does the patient have an advance directive? No 11/14/18 6:30pm If yes, is advance directive on file with [facility]? No 11/14/18 6:30pm If not on file with [facility] will patient provide a copy? Yes 11/14/18 6:30pm Do you have a Directive to Physician? Yes 11/14/18 3:29pm Do you have a Medical Power of Hazardous Waste Remover? Yes 11/14/18 3:29pm Do you have an [...] rights and responsibilities? Yes 11/14/18 3:29pm 11/20/2018 [facility] Advance Directives Advance Directives Directive Response Recorded Date/Time Does the patient have an advance directive? Yes 08/03/18 9:56pm If yes, is advance directive on file with [facility]? No 08/03/18 9:56pm If not on file with [facility] will patient provide a copy? Yes 08/03/18 9:56pm Do you have a Directive to Physician? Yes 08/03/18 6:46pm Do you have a Medical Power of Hazardous Waste Remover? Yes 08/03/18 6:46pm Do you have an [...] rights and responsibilities? Yes 08/03/18 6:46pm 08/09/2018 [facility] Advance Directives Advance Directives Directive Response Recorded Date/Time Does the patient have an advance directive? No 12/28/17 8:52pm If yes, is advance directive on file with [facility]? No 12/28/17 8:52pm If not on file with [facility] will patient provide a copy? No 12/28/17 8:52pm Do you have a Directive to Physician? No 12/28/17 3:49pm Do you have a Medical Power of Hazardous Waste Remover? No 12/28/17 3:49pm Do you have an [...] rights and responsibilities? Yes 12/28/17 3:49pm 01/08/2018 [facility] Functional Status No Data Provided for This Section
--- NOTE | 2018-12-21 18:23 | History and Physical ---
CHIEF COMPLAINT: Shortness of breath. HISTORY OF PRESENT ILLNESS: This 53-year-old white man, who presents to [facility] due to sudden onset of worsening shortness of breath. The patient's adult sister, who cares for the patient states the patient became minimally unresponsive and was shaking in the car. She states that prior to this episode, he became very short of breath when he was ambulating toward the car. The patient has Down Syndrome and has advanced heart failure, specifically diastolic heart failure. In the emergency room, the patient was found to have a white blood cell count of 10,100 with 83% segmenters. The patient had chest x-ray in the emergency room, which revealed findings consistent with worsening congestive heart failure and bibasilar atelectasis. The chest x-ray did reveal hazy bilateral perihilar and bibasilar opacities. The patient was just discharged from [facility] a month ago after a 1-week hospitalization for pneumonia according to his adult sister. In the emergency room, the patient was found to have a BUN and creatinine of 21 and 1.01 respectively. The patient's B type natriuretic peptide was elevated at 200. The patient was admitted for further evaluation and treatment. REVIEW OF SYSTEMS: GENERAL: He has increased 12 pounds over the last week according to his sister. No fever and chills. HEENT: No headaches. No vision changes. CARDIOVASCULAR/RESPIRATORY: Worsening shortness of breath, particularly exertion over the last few days according to adult daughter. No chest pain or tightness. GI: No nausea, vomiting, diarrhea, or constipation. : No dysuria, hematuria, incontinence, but he does have a painful rash in his right groin area. NEUROMUSCULAR: No limb weakness or numbness. PAST MEDICAL HISTORY: 1. Chronic diastolic congestive heart failure. 2. Down syndrome. 3. Recurrent pneumonia (last hospitalization November 2018 for this condition). 4. Extreme obesity. 5. History of lower extremity deep venous thrombosis. 6. History of pulmonary embolism. 7. Hyperlipidemia. 8. Hypothyroidism. 9. Type 2 diabetes mellitus. ALLERGIES: CEFDINIR, VANCOMYCIN. SURGICAL HISTORY: 1. Pacemaker placement. 2. Tonsillectomy. 3. Right femur abbey placement. 4. Right hip surgery. 5. Right knee surgery. FAMILY HISTORY: Noncontributory. SOCIAL HISTORY: This man is single and lives at home with one of his adult sister. The patient has multiple adult sisters, who care for him. PHYSICAL EXAMINATION: GENERAL: On exam, he is awake, but somnolent. He is currently wearing a BiPAP mask. He appears to be in respiratory distress. His adult sister is at bedside. VITAL SIGNS: Height 5 feet 4 inches, weight is 270 pounds, BMI 46. On exam, blood pressure is 150/68, pulse 74, respiratory rate is 18, oxygen saturation 99%, breathing on BiPAP, temperature 97.9. INTEGUMENT: Skin is warm and dry. No pallor, jaundice, or diaphoresis. The patient has erythematous macerations in the right inguinal area. He also has diffuse redness, warmth, tenderness in his right lower abdominal wall area consistent with cellulitis. HEENT: Anicteric sclerae. Moist mucous membranes. Currently wearing BiPAP mask. NECK: Supple. Difficult to assess for jugular venous distention because of body habitus. CARDIOVASCULAR: Distant heart sounds. Regular rate and rhythm. LUNGS: The patient has crackles in bilateral lung waters with diminished breath sounds at bases. ABDOMEN: Obese, benign, but he does have evidence of right abdominal wall cellulitis. EXTREMITIES: 1 to 2+ edema in the bilateral lower legs, worse in the right. He also has erythematous macerations as previously stated the right inguinal area consistent with severe cutaneous candidiasis. NEUROLOGIC: Intact. No gross deficits appreciated. DIAGNOSES: 1. [id number] diastolic congestive heart failure. 2. Abdominal wall cellulitis. 3. Bilateral pneumonia, likely gram-negative abbey. 4. Extreme obesity, BMI 44. 5. Cutaneous candidiasis (right inguinal). PLAN: 1. We will honor the family's wishes and make the patient do not resuscitate code status. 2. Intravenous furosemide. 3. Intravenous antibiotics. 4. Fluconazole and topical nystatin for patient's cutaneous candidiasis. I spoke at length with adult sister about end of life care for this patient. Informed the adult sister this patient may be a candidate for palliative treatment or home hospice care. I spent 75 minutes in the care of this critical care patient. MD FAUSTINO Gutierrez/JARED /[id number] LEE
--- NOTE | 2018-12-21 21:55 | NUR ---
Report received from ER Nurse Indigo. Patient admitted in unit @2155 by stretcher with alert/oriented x3 (History of down syndrome) and continued BIPAP, Spo2 maintained 96%. No respiratory distress noted. Respiration even and unlabored. Denied pain and no SOB. Patient's sister in the room. Head to toe assessment completed. No skin breakdown noted. Redness on lower abdomen and perineal area noted. Assisted to applied Mycomist cream on redness area as order. Bed on lower position,locked. Call within reach. Patient instructed to call for help as needed, verbalized and understand. Will continue to monitor.
[2018-12-21] MEDS: NYSTATIN 100,000 UNITS/GM CRM 30GM TUBE TOP SCH (22:19)
[2018-12-21 22:20] VITALS: BP 119/68
[2018-12-21 22:24] VITALS: BP 119/68
[2018-12-21 22:42] LABS: CREATINE KINASE MB 1.6 ng/mL (0-5.0)
[2018-12-21 23:58] VITALS: BP 116/65
[2018-12-22] VITALS: BP 116/65
[2018-12-22] MEDS ORDERED: SODIUM CHLORIDE 0.9% 250ML 250 ML ONE (04:58)
[2018-12-22 04:59] VITALS: BP 115/63
[2018-12-22] MEDS: CEFEPIME 1GM/NS 0.9% 50 ML 50 ML IV SCH ×2 (05:17→17:41)
[2018-12-22 05:38] LABS: BASOPHILS % 0.2 % (0.0-1.0); EOSINOPHILS % 0.1 % (0.0-6.0); HEMOGLOBIN 13.6 g/dL (14.0-18.0); LYMPHOCYTES # (AUTO) 0.3 (1.0-3.2); MEAN CORPUSCULAR HEMOGLOBIN 29.1 pg (28-32); MEAN CORPUSCULAR HGB CONC 30.2 g/dL (31-35); MEAN CORPUSCULAR VOLUME 96.2 fL (81-99); MONOCYTES # (AUTO) 0.1 (0.2-0.8); MONOCYTES % 1.2 % (4.4-11.3); NEUTROPHILS # (AUTO) 8.8 (2.1-6.9); NEUTROPHILS % 94.7 % (38.7-80.0); PLATELET COUNT 234 x10e3/uL (140-360); RED BLOOD COUNT 4.68 x10e6/uL (4.3-5.7); RED CELL DISTRIBUTION WIDTH 20.2 % (11.7-14.4)
[2018-12-22 06:02] LABS: ALANINE AMINOTRANSFERASE 14 IU/L (0-55); ALBUMIN 2.7 g/dL (3.5-5.0); ALBUMIN/GLOBULIN RATIO 0.7 (0.8-2.0); ALKALINE PHOSPHATASE 139 IU/L (40-150); ANION GAP 16.2 mmol/L (8-16); BLOOD UREA NITROGEN 21 mg/dL (7-26); BUN/CREATININE RATIO 19 (6-25); CALCIUM 9.2 mg/dL (8.4-10.2); CARBON DIOXIDE 30 mmol/L (22-29); CHLORIDE 99 mmol/L (98-107); CREATININE, SERUM 1.09 mg/dL (0.72-1.25); EST GLOMERULAR FILTRATION RATE > 60 ML/MIN (60-); GLUCOSE 214 mg/dL (74-118); POTASSIUM 4.2 mmol/L (3.5-5.1); SODIUM 141 mmol/L (136-145)
[2018-12-22 06:20] LABS: CREATINE KINASE MB 1.6 ng/mL (0-5.0)
--- NOTE | 2018-12-22 06:29 | Diagnostic Imaging Report ---
A single frontal view of the chest. HISTORY: CHF COMPARISON: Chest radiograph December 21, 2018. DISCUSSION: Portable technique, limits sensitivity of the exam. Soft tissue attenuation markedly limits sensitivity of the exam. Multiple overlying monitoring leads. Tubes/Lines: Unchanged appearance of the left implanted cardiac device. Lungs and pleura: Persistent diffusely increased pulmonary interstitial markings with more confluent patchy opacities, most notably the right lung base. Heart and mediastinum: The cardiac silhouette and central pulmonary vasculature appear enlarged. Bones and soft tissues: Multiple median sternotomy wires. IMPRESSION: Findings remain compatible with moderate to severe pulmonary edema with probable right pleural effusion. Superimposed pneumonia or aspiration may be a consideration the appropriate setting. Signed by: Dr. Zak Dawn D.O., M.M.M. on 12/22/2018 6:25 AM
--- NOTE | 2018-12-22 07:00 | NUR ---
Pt received resting in bed. Alert and oriented x3 with h/o down syndrome. Oriented to staff and surroundings. Encouraged to press call if help needed. Call within reach. Will monitor
[2018-12-22 07:25] VITALS: BP 114/69
--- NOTE | 2018-12-22 09:00 | NUR ---
All meds given as ordered. Pt switched from nasal cannula to BIPAP after eating. Call within reach. Will monitor
[2018-12-22] MEDS: FUROSEMIDE INJ 10 MG/ML 4 ML VIAL IV SCH ×2 (09:01→17:41)
[2018-12-22] MEDS: NYSTATIN 100,000 UNITS/GM CRM 30GM TUBE TOP SCH ×2 (09:01→17:41)
[2018-12-22] MEDS: SPIRONOLACTONE 25 MG TAB PO SCH ×2 (09:01→17:41)
[2018-12-22 11:41] VITALS: BP 100/50
--- NOTE | 2018-12-22 12:51 | NUR ---
Witnessed Dr. Mark Mak speak to Pt's sister (Danish) about Hospice. general utility worker notified
[2018-12-22] MEDS ORDERED: DIFLUCAN200 MG PO (12:57)
[2018-12-22] MEDS ORDERED: KEFLEX500 MG PO (12:57)
--- NOTE | 2018-12-22 13:02 | NUR ---
SPOKE WITH FAMILY ABOUT HOSPICE OPTIONS AND GAVE CHOICES OF [facility], [facility], [facility]. [facility]ILY CHOSE [facility], SIGNED CHOICE FILED IN CHART, CALLED REP [facility], SHE WILL BE IN BUILDING TO MEET WITH FAMILY IN HOUR AND A HALF AND GET EQUIPMENT TO BE DELIVERED TO THE HOME AND DISCHARGED HOME TODAY IF EVERYTHING IS SET UP.
[2018-12-22] MEDS ORDERED: NYSTATIN-TRIAMC15 GM TOP (13:03)
[2018-12-22] MEDS ORDERED: NYSTATIN-TRIAMC15 GM (13:03)
--- NOTE | 2018-12-22 13:07 | NUR ---
LEFT SIGNED OOH DNR BY DOCTOR ON CHART FOR [facility] REP TO COMPLETE AND KEEP ON FILE, INSTRUCTED TO LEAVE A COPY IN CHART.
[2018-12-22] MEDS ORDERED: ASPIRIN CHEW81 MG PO (13:17)
--- NOTE | 2018-12-22 13:20 | NUR ---
As per Dr. Mak, okay to discharge pt this even when hospice is fully set up
[2018-12-22 13:54] LABS: INR 2.84; PROTHROMBIN TIME 30.6 seconds (11.9-14.5)
[2018-12-22 14:09] LABS: CREATINE KINASE MB 1.2 ng/mL (0-5.0)
[2018-12-22] MEDS ORDERED: FUROSEMIDE 40 MG TAB PO SCH (15:00)
--- NOTE | 2018-12-22 15:02 | NUR ---
Nutrition Screen Note RD Recommendation for Physician: 1.Recommend continue with Cardiac diet add Diabetic restrictions 2.Fluid restriction per MD Plan of Care: RD following, monitoring for tolerance and adequacy Nutrition reason for involvement: Diagnosis Primary Diagnose(s): CHF exacerbation PMH: 1. Chronic diastolic congestive heart failure. 2. Down syndrome. 3. Recurrent pneumonia (last hospitalization November 2018 for this condition). 4. Extreme obesity. 5. History of lower extremity deep venous thrombosis. 6. History of pulmonary embolism. 7. Hyperlipidemia. 8. Hypothyroidism. 9. Type 2 diabetes mellitus. Ht: 54 in Wt:247 lbs BMI: 47.02 kg/m2 IBW: 130lbs +/- 10% RD Assessment: (12/22) Chart reviewed. Labs and meds reviewed. 53 y/o with sudden onset of worsening shortness of breath. Patient sister at bedside who provided most of history for patient. Per patients sister, patient is eating well at home, under the care of his sisters. Sister tries to adhere to cardiac and diabetic diet at home, noted patient usually consuming liberal diet. Family was told to monitor fluid intakes, but noted pt poor adherence to fluid restrictions and diet in the past. Patient and sister report good PO intake, no changes in appetite or weight. Denied any N/V/D/C or any difficulties chewing/swallowing. Will continue to monitor and follow. Current Diet: Cardiac Diet Malnutrition Evaluation (12/22) The patient does not meet criteria for a specified degree of malnutrition at this time. Will re-evaluate at follow-up as appropriate. Diet Education Needs Assessment: Diet education indicated, educated patient and sister at bedside on fluid and sodium restriction diet for CHF Learner(s): Patient and sister Barriers: Patient hx of non-compliance Cultural/Language Modifications: none Readiness: acceptance Method: Oral Topics: fluid/ sodium restriction Understanding/Compliance: poor Nutrition Care Level: LOW Signed: Le Dexter MS, RD, LD
--- NOTE | 2018-12-22 15:25 | NUR ---
Pt's sister stated that she has things to do in order for pt to return home. Requesting for nurse to speak to Dr. Mak
--- NOTE | 2018-12-22 15:32 | NUR ---
As per Dr. Mak, pt can go home tomorrow by 9am
--- NOTE | 2018-12-22 15:33 | NUR ---
PT FAMILY IS REQUESTING THAT PT BE KEPT HERE UNTIL MORNING TIME, INFORMED NURSE WHOM WILL SPEAK WITH DR SINCE ORDER FOR DISCHARGE IS ALREADY IN SYSTEM. PT RETURNING HOME WITH [facility], THEY WILL SET UP TRANSPORT IF NEEDED IF FAMILY IS NOT ABLE TO TRANSPORT HOME AFTER EQUIPMENT IS DELIVERED.
[2018-12-22 16:14] VITALS: BP 129/65
[2018-12-22] MEDS ORDERED: ENOXAPARIN SOD INJ 40 MG/0.4 ML SYR SC SCH (17:00)
[2018-12-22] MEDS: POTASSIUM CHLORIDE 10MEQ EA PO SCH (17:42)
[2018-12-22 20:00] VITALS: BP 126/64
--- NOTE | 2018-12-22 20:03 | NUR ---
patient is on bed, bipap is on, patient resting closed eyes, aroused easily. vitals checked, will continue to monitor.
[2018-12-22] MEDS ORDERED: METFORMIN HCL 500 MG TAB PO SCH (21:00)
[2018-12-23] VITALS: BP 108/64
[2018-12-23 00:08] VITALS: BP 126/64
[2018-12-23 04:00] VITALS: BP 105/56
[2018-12-23 05:11] LABS: BASOPHILS % 0.2 % (0.0-1.0); EOSINOPHILS % 0.1 % (0.0-6.0); HEMOGLOBIN 13.2 g/dL (14.0-18.0); LYMPHOCYTES # (AUTO) 0.6 (1.0-3.2); LYMPHOCYTES % 4.5 % (18.0-39.1); MEAN CORPUSCULAR HEMOGLOBIN 29.3 pg (28-32); MEAN CORPUSCULAR HGB CONC 30.7 g/dL (31-35); MEAN CORPUSCULAR VOLUME 95.3 fL (81-99); MONOCYTES % 7.6 % (4.4-11.3); NEUTROPHILS # (AUTO) 11.7 (2.1-6.9); PLATELET COUNT 199 x10e3/uL (140-360); RED BLOOD COUNT 4.51 x10e6/uL (4.3-5.7); RED CELL DISTRIBUTION WIDTH 20.5 % (11.7-14.4)
[2018-12-23] MEDS: CEFEPIME 1GM/NS 0.9% 50 ML 50 ML IV SCH (05:37)
[2018-12-23 05:42] LABS: ALANINE AMINOTRANSFERASE 17 IU/L (0-55); ALBUMIN 2.7 g/dL (3.5-5.0); ALBUMIN/GLOBULIN RATIO 0.8 (0.8-2.0); ALKALINE PHOSPHATASE 124 IU/L (40-150); ANION GAP 10.9 mmol/L (8-16); BLOOD UREA NITROGEN 20 mg/dL (7-26); BUN/CREATININE RATIO 22 (6-25); CALCIUM 9.2 mg/dL (8.4-10.2); CARBON DIOXIDE 35 mmol/L (22-29); CHLORIDE 99 mmol/L (98-107); CREATININE, SERUM 0.89 mg/dL (0.72-1.25); EST GLOMERULAR FILTRATION RATE > 60 ML/MIN (60-); GLUCOSE 123 mg/dL (74-118); POTASSIUM 3.9 mmol/L (3.5-5.1); SODIUM 141 mmol/L (136-145)
[2018-12-23] MEDS ORDERED: LEVOTHYROXINE SODIUM 75 MCG TAB PO SCH (06:00)
--- NOTE | 2018-12-23 07:00 | NUR ---
Pt received resting in bed on BIPAP. Emotional support given. Call within reach. Will monitor
[2018-12-23 07:30] VITALS: BP 123/63
[2018-12-23] MEDS ORDERED: GLIMEPIRIDE 2 MG TAB PO SCH (07:30)
[2018-12-23] MEDS: SPIRONOLACTONE 25 MG TAB PO SCH (08:22)
[2018-12-23] MEDS: FUROSEMIDE INJ 10 MG/ML 4 ML VIAL IV SCH (08:22)
[2018-12-23] MEDS: NYSTATIN 100,000 UNITS/GM CRM 30GM TUBE TOP SCH (08:23)
[2018-12-23] MEDS: POTASSIUM CHLORIDE 10MEQ EA PO SCH (08:23)
--- NOTE | 2018-12-23 08:23 | NUR ---
All meds given as ordered. Awaiting sister to sign discharge papers
[2018-12-23] MEDS ORDERED: METOPROLOL SUCCINATE 25 MG TAB XL PO SCH (09:00)
[2018-12-23] MEDS ORDERED: METFORMIN HCL 500 MG TAB PO SCH (09:00)
[2018-12-23] MEDS ORDERED: ALLOPURINOL 100 MG TAB PO SCH (09:00)
[2018-12-23] MEDS ORDERED: ASPIRIN 81 MG ENTERIC COATED PO SCH (09:00)
--- NOTE | 2018-12-23 09:29 | NUR ---
PT GOING HOME VIA HOSPICE. DISCHARGE INSTRUCTIONS GIVEN TO SISTER MAYA. PT LEAVING VIA [facility]
--- NOTE | 2018-12-23 11:16 | NUR ---
Dictated DC summary: [id number]
--- NOTE | 2018-12-23 11:56 | Discharge Summary ---
ADMIT DIAGNOSES: 1. Acute on chronic diastolic congestive heart failure. 2. Abdominal wall cellulitis. 3. Bilateral pneumonia likely gram-negative abbey. 4. Extreme obesity, BMI 44. 5. Cutaneous candidiasis (right inguinal). 6. Down syndrome. DISCHARGE DIAGNOSES: 1. Acute on chronic diastolic congestive heart failure, resolving. 2. Abdominal wall cellulitis, resolving. 3. Bilateral pneumonia likely gram-negative abbey. 4. Extreme obesity, BMI 54. 5. Cutaneous candidiasis (right inguinal). 6. Down syndrome. HOSPITAL COURSE: This is a 53-year-old white man, who has known history of Down syndrome and diastolic heart failure. He was admitted to [facility] with diagnosis of acute on chronic diastolic congestive heart failure, as well as diabetes mellitus and bilateral pneumonia likely gram-negative abbey. During this hospitalization, the family confirmed that he was a do not resuscitate code status. The patient did not improve clinically with intravenous furosemide in regard to his heart failure. His pneumonia was treated with intravenous cefepime. Moreover, his cutaneous candidiasis treated with intravenous fluconazole as well as topical nystatin. The family elected to proceed with palliative treatment for home hospice care. Prior to discharge in our hospital do not resuscitate, status form was completed. The patient was enrolled in home hospice prior to discharge. CONDITION ON DISCHARGE: Fair with an overall poor prognosis. DISCHARGE MEDICATIONS: 1. Metoprolol succinate 25 mg daily. 2. Allopurinol 100 mg daily. 3. Topical nystatin cream to the right inguinal area twice a day for 21 days. 4. Aspirin 81 mg daily. 5. Metformin 500 mg b.i.d. 6. Glimepiride 1 mg daily. 7. Spironolactone 25 mg b.i.d. 8. Furosemide 40 mg p.o. t.i.d. 9. Levothyroxine 75 mcg daily. 10. Keflex 500 mg p.o. b.i.d. for 10 days. FOLLOWUP INSTRUCTIONS: As previously stated, the patient will be discharged home today under home hospice care. Once again, an [id number] do not resuscitate code status was completed and signed prior to discharge. MD FAUSTINO Gutierrez/JARED /[id number] cc: Dr. Bety Woods MD
== END 2018-12-23 09:33 | disposition hospice, home (50) | DRG 291 ==
LOC: ER 14:00 → ERHOLD 18:17 → IMCU 21:45
PROVIDERS: ADMIT Internal Medicine; ATTEND Internal Medicine
DX: I11.0 Hypertensive heart disease with heart failure (principal); J15.6 Pneumonia due to other Gram-negative bacteria; Z68.41 Body mass index [BMI] 40.0-44.9, adult; L03.311 Cellulitis of abdominal wall; I50.33 Acute on chronic diastolic (congestive) heart failure; E66.01 Morbid (severe) obesity due to excess calories; B37.2 Candidiasis of skin and nail; Z86.711 Personal history of pulmonary embolism; Q90.9 Down syndrome, unspecified; B35.6 Tinea cruris; Z66 Do not resuscitate
CPT/HCPCS: 36415; 36600; 71045; 80053; 82550; 82553; 82805; 83880; 84484; 85025; 85610; 93005; 93971; 94660; 99285; J0692; J1650; J1940; J2930; J3475; J7050